=== PATIENT | male | born 1945 | race African-American/Black ===

== ENCOUNTER 2018-01-03 08:06 | Emergency (ER) | payer OTHER, MEDICARE, SELFPAY ==
[2018-01-03 08:15] VITALS: BP 142/83; PULSE 93; RESP 18; TEMP 36.7; O2SAT 96
--- NOTE | 2018-01-03 08:40 | ED_ITS ---
HPI - Back Pain/Injury General Chief Complaint: Back Pain/Injury Stated Complaint: low back soreness Time Seen by Provider: 01/03/18 08:10 Source: patient Mode of arrival: ambulatory Limitations: no limitations History of Present Illness HPI Narrative: 72M former smoker with history of hypertension presents to the emergency department the chief complaint of lower back pain in the absence of any significant injury. He denies any midline or bony pain nor any traumatic injury. He denies fever or chills. He denies any dysuria, frequency or urgency. He denies hematuria. He denies any numbness, tingling or weakness. He denies foot drop. He denies any trouble controlling bowel or bladder. His pain is worse with motion and improves with rest MD Complaint: back pain Onset (ago): day(s) Duration: intermittent Similar Symptoms Previously: Yes Location: lumbar spine and thoracic spine Severity: mild Quality: aching Radiation: none Relieving factors: none Exacerbating factors: movement Associated symptoms: denies other symptoms Related Data Home Medications Medication Instructions Recorded Confirmed atenolol Unknown PO QDAY #0 03/26/16 lisinopril Unknown PO QDAY #0 03/26/16 Previous Rx's Medication Instructions Recorded albuterol sulfate [Ventolin HFA] 2 puff INH Q4HP PRN #1 ea 03/27/16 doxycycline hyclate 100 mg PO BID #10 cap 03/27/16 fluticasone-salmeterol [Advair 1 puff INH BID #1 ea 03/27/16 Diskus] prednisone 40 mg [place] [facility] [place] tab 03/27/16 cyclobenzaprine 10 mg PO TID PRN #14 tab 01/03/18 ibuprofen 600 mg PO TID-QID PRN #20 tab 01/03/18 Allergies Allergy/AdvReac Type Severity Reaction Status Date / Time No Known Allergies Allergy Uncoded 01/03/18 08:43 Review of Systems Review of Systems All systems reviewed & are unremarkable except as noted in HPI and below Constitutional Denies chills, Denies fever(s), Denies lethargy and Denies weakness Eyes Denies change in vision, Denies eye discharge, Denies irritation and Denies loss of vision ENT Ears, Nose, Mouth, and Throat: Denies change in voice, Denies neck pain and Denies sore throat Cardiovascular Denies chest pain, Denies irregular heart rhythm, Denies lightheadedness, Denies palpitations, Denies dyspnea, Denies dyspnea on exertion and Denies orthopnea Respiratory Denies cough, Denies dyspnea, Denies dyspnea on exertion and Denies wheezing Gastrointestinal Gastrointestinal: Denies abdominal pain, Denies change in bowel habits, Denies diarrhea, Denies nausea and Denies vomiting Genitourinary Denies hematuria, Denies flank pain, Denies urinary incontinence and Denies urinary urgency Musculoskeletal Reports back pain and Denies neck pain Integumentary/Breasts Denies pruritus, Denies erythema, Denies rash and Denies wounds Neurologic Denies confusion, Denies loss of vision and Denies weakness Psychiatric Denies anxiety, Denies confusion, Denies depression, Denies homicidal ideation and Denies suicidal ideation Endocrine Denies palpitations Hematologic/Lymphatic Denies easy bruising Allergic/Immunologic Denies wheezing [facility] Social History Smoking Status: Former smoker Exam Narrative Exam Narrative: GEN: AOx3 and in mild distress EYES: Pupils are equal, round, and reactive to light and accommodation. Extraoccular muscles are intact bilaterally. There is no subconjunctival hemorrhage or exudate. CHEST: Lungs are clear to auscultation bilaterally and free of wheezes, rales, or rhonchi. Heart rate is regular rhythm, there are no murmurs, clicks, rubs, or gallops. There is no chest wall tenderness. ABD: Abdomen is soft and nontender. There is no guarding or rebound. Bowel sounds are normal in all 4 quadrants. There is no mass or organomegaly. EXT: Full painless ROM of all extremities with no loss of sensation or strength. SKIN: Warm, pink, and dry. No erythema or rash BACK: cell tender helper but free of any obvious external abnormalities. Patient exam notes decreased range of motion and muscle spasm, but no CVA tenderness, or vertebral point tenderness. There are no symptoms of cauda equina such as saddle anesthesia, and decreased reflexes, decreased sensation or strength. Initial Vital Signs Initial Vital Signs: Vital Signs Temperature 98.1 F 01/03/18 08:15 Pulse Rate 93 H 01/03/18 08:15 Respiratory Rate 18 01/03/18 08:15 Blood Pressure 142/83 H 10/13/18 08:15 Pulse Oximetry 96 10/13/18 08:15 Course Vital Signs - 8 hr 01/03/18 08:15 Temperature 98.1 F Pulse Rate 93 H Respiratory Rate 18 Blood Pressure 142/83 H Pulse Oximetry 96 MDM - Back Pain/Injury Differential Diagnosis Differential diagnosis: Likely lumbar radiculopathy, sciatica, strain of lumbar region, renal colic, pyelonephritis, thoracic back pain, AAA and discitis Lab Data Urine Dip Bedside Urine Glucose Negative Bedside Urine Bilirubin - Negative Bedside Urine Ketone - Negative Urine Specific [place] 1.030 Bedside Urine Occult Blood - Negative Bedside Urine pH 6.0 Bedside Urine Protein - Negative Bedside Urine Urobilinogen - Negative Bedside Urine Nitrite - Negative Bedside Urine Leukocytes - Negative Esterase Discharge Plan Departure Patient Disposition: Home Clinical Impression: Strain of lumbar region Instructions: DI for Low Back Pain, DI for Thoracic Back Pain Activity Restrictions/Additional Instructions: *You have been diagnosed with [ lumbar pain] *What to do: *Take medications as directed *Follow up with your primary care provider in 2-3 days, call for an appointment. Let them know you were seen in the Emergency Department and that we ask that you be seen in follow up *Return to ER if you should have any new, worsening or concerning symptoms Prescriptions: New cyclobenzaprine 10 mg tablet 10 mg PO TID PRN (Reason: muscle spasm) Qty: 14 RF: 0 ibuprofen 600 mg tablet 600 mg PO TID-QID PRN (Reason: pain) Qty: 20 RF: 0 No Action lisinopril 20 MG tablet Unknown PO QDAY Qty: 0 RF: 0 atenolol 25 MG tablet Unknown PO QDAY Qty: 0 RF: 0 fluticasone-salmeterol [Advair Diskus] 250 MCG/50 MCG blister with device 1 puff INH BID Qty: 1 RF: 0 doxycycline hyclate 100 MG capsule 100 mg PO BID Qty: 10 RF: 0 albuterol sulfate [Ventolin HFA] 90 MCG/PUFF HFA aerosol inhaler 2 puff INH Q4HP PRNQty: 1 RF: 0 prednisone 20 MG tablet 40 mg PO AMC Qty: 8 RF: 0
== END 2018-01-03 09:02 | disposition home or self-care (01) ==
PROVIDERS: Emergency Provider Emergency Medicine
DX: S39.012A Strain of muscle, fascia and tendon of lower back, initial encounter (principal)
CPT/HCPCS: 81003; 99282; 99283

== ENCOUNTER 2018-04-01 10:50 | Emergency (ER) | payer OTHER, SELFPAY ==
[2018-04-01 10:50] VITALS: BP 153/94; PULSE 86; RESP 20; TEMP 36.9; O2SAT 89
[2018-04-01 11:12] VITALS: PULSE 90; RESP 16; O2SAT 95
[2018-04-01] MEDS: ALBUTEROL/IPRATROPIUM 3 ML AMPUL INH (11:14)
--- NOTE | 2018-04-01 11:36 | DI.RAD.S_ITS ---
PROCEDURE: XR CHEST 2V INDICATIONS: SOB, hx COPD worse x 12 hours TECHNIQUE: 2 views of the chest were acquired. COMPARISON: [facility], , CHEST 2 VIEW, 03/25/2016, 21:07. FINDINGS: Surgical changes and devices: None. Lungs and pleura: Previously seen area of airspace disease within the right upper lobe has resolved. There are new linear areas of increased attenuation identified at the bilateral lung bases. No lobar consolidation, large effusion, or pneumothorax is evident. Mediastinum: Mediastinal contours are normal. Heart size is normal. There likely is aortic atherosclerosis. There is a small hiatal hernia. Bones and chest wall: No suspicious bony abnormalities. Soft tissues appear unremarkable. IMPRESSION: Mild bibasilar atelectasis. No definite pneumonia. Dictated by: Samuel Tijerina M.D. on 04/01/2018 at 11:12 Approved by: Samuel Tijerina M.D. on 04/01/2018 at 11:13
--- NOTE | 2018-04-01 11:42 | ED_ITS ---
HPI - SOB/Dyspnea General Chief Complaint: Shortness of Breath/Dyspnea Stated Complaint: SHORTNESS OF BREATH LAST NIGHT Time Seen by Provider: 04/01/18 11:13 Source: patient Mode of arrival: ambulatory Limitations: no limitations History of Present Illness This is a 72-year-old male who comes to the emergency department with complaint of shortness of breath. 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 It improved overnight slowly. Patient has been out of his long-acting albuterol inhaler for about for 5 days. He does not normally use a steroid inhaler. Patient states that when he finish work this morning he was feeling better but still felt a little bit short of breath. He states that he has not had any fevers, has any cold cough or congestion. He has any chest pain or pressure. No nausea, no vomiting, no diaphoresis. Patient does have swelling in his lower extremities which he states is chronic and has not seemed to worsen. He does take medication for blood pressure, states he used to take medication for dyslipidemia. He did have a cardiac catheterization around 2006 after traveling to [facility] and being evaluated. He states he was told his cardiac cath was negative. He is not sure if he has ever been told he has right bundle branch block on his EKG. Related Data Home Medications Medication Instructions Recorded Confirmed lisinopril 20 mg PO DAILY #0 03/26/16 04/01/18 Previous Rx's Medication Instructions Recorded albuterol sulfate [Ventolin HFA] 2 puff INH Q4HP PRN #1 ea 03/27/16 Allergies Allergy/AdvReac Type Severity Reaction Status Date / Time No Known Drug Allergies Allergy Verified 04/01/18 11:02 Review of Systems Review of Systems ROS Unobtainable: All systems reviewed & are unremarkable except as noted in HPI and below Constitutional Denies chills, Denies fever(s), Denies lethargy and Denies weakness Cardiovascular Denies chest pain, Denies diaphoresis, Denies rapid heart rate, Reports edema ( chronic, not worse), Denies irregular heart rhythm, Denies lightheadedness, Denies radiating jaw, neck or arm pain, Denies palpitations, Reports dyspnea and Denies orthopnea Respiratory Denies change in phlegm color, Denies chest congestion, Denies cough, Denies excessive phlegm production, Denies pain on inspiration and Reports dyspnea Gastrointestinal Gastrointestinal: Denies abdominal pain, Denies change in bowel habits, Denies diarrhea, Denies nausea and Denies vomiting Neurologic Denies weakness Endocrine Denies palpitations COUNTS INCLUDE 234 BEDS AT THE [facility] Social History Smoking Status: Former smoker Exam Narrative Exam Narrative: GENERAL: Alert and oriented x three, obese, well-appearing male in no acute distress. HEENT: Head normocephalic, atraumatic, EOMI, pupils reactive, face symmetric, moist mucous membranes NECK: Supple, full range of motion CARDIOVASCULAR: Regular rate and rhythm without murmurs, rubs or gallops. RESPIRATORY: Breath sounds equal bilaterally, no wheezes rales or rhonchi. Patient has no tachypnea. No accessory muscle use. Patient is able to talk for prolonged period of time without trouble with respirations. ABDOMEN: Soft, nontender. Normoactive bowel sounds all 4 quadrants. No guarding or rebound, rigidity, no mass : No CVA tenderness EXTREMITIES: Normal range of motion, no clubbing. bilateral lower extremity edema. Neurovascularly intact NEUROLOGICAL: Cranial nerves II through XII grossly intact. Moving all extremities. SKIN: Warm, dry, no petechiae, no rashes or lesions. Initial Vital Signs Initial Vital Signs: Vital Signs Temperature 98.4 F 04/01/18 10:50 Pulse Rate 86 04/01/18 10:50 Respiratory Rate 20 04/01/18 10:50 Blood Pressure 153/94 H 04/01/18 10:50 Pulse Oximetry 89 L 04/01/18 10:50 Course Orders Ordered: ED Orders 04/01/18 11:35 Consult to Respiratory Therapy Evaluate & Treat 04/01/18 11:36 XR chest 2V Stat 04/01/18 11:50 B Type Natriuretic Peptide Stat Complete Blood Count AUTO DIFF Stat 04/01/18 12:15 Basic Metabolic Panel Stat Magnesium Stat Troponin & CK Cardiac Panel Stat Discontinued Medications Albuterol/Ipratropium (Duoneb) 3 ml INH NOW ONE Stop: 04/01/18 11:13 Last Admin: 04/01/18 11:14 Dose: 3 ml Vital Signs - 8 hr 04/01/18 12:30 04/01/18 13:00 04/01/18 13:30 Pulse Rate 87 84 86 Respiratory Rate 19 17 22 Blood Pressure Blood Pressure [Right Arm] 152/79 H 113/99 H 134/77 Pulse Oximetry 95 96 96 04/01/18 14:05 Pulse Rate 80 Respiratory Rate 19 Blood Pressure 134/77 Blood Pressure [Right Arm] Pulse Oximetry 97 MDM - SOB/Dyspnea Differential Diagnosis Likely acute exacerbation of chronic obstructive airways disease, congestive heart failure, community acquired pneumonia, asthma with exacerbation and pulmonary embolism Lab Data Attestation: I reviewed the patient's lab results. Result diagrams: 04/01/18 11:50 04/01/18 12:15 Lab Results 04/01/18 04/01/18 Range/Units 11:50 12:15 WBC 5.9 (4.5-11.0) X10^3/uL RBC 4.37 L (4.5-5.9) X10^6/uL Hgb 13.0 L (13.5-17.5) g/dL Hct 40.8 L (41-53) % MCV 93.4 (80-100) fL MCH 29.6 (26-34) PG MCHC 31.7 (30-36) % RDW 14.4 (11.6-14.8) % Plt Count 203 (150-400) X10^3/uL Neut % (Auto) 62.1 (50-75) % Lymph % (Auto) 21.1 L (25-40) % [place] % (Auto) 11.6 (3-14) % Eos % (Auto) 3.9 (2-4) % Baso % (Auto) 1.3 (0-2) % Neut # (Auto) 3700 (3866-7153) /uL Sodium 142 (137-145) mmol/L Potassium 4.5 (3.4-5.1) mmol/L Chloride 101 (98-107) mmol/L Carbon Dioxide 33 H (22-32) mmol/L BUN 17 (9-20) mg/dL Creatinine 0.80 (0.66-1.25) mg/dL Estimated GFR > 60.0 (>60) mL/min BUN/Creatinine Ratio 21.3 (6-22) Glucose 110 (80-110) mg/dL Calcium 9.2 (8.4-10.2) mg/dL Magnesium 2.3 (1.6-2.3) mg/dL Total Creatine Kinase 130 (55-170) U/L CK-MB (CK-2) 2.14 (<2.37) ng/mL CK-MB (CK-2) Rel Index 1.6 (1.5-5.0) % Troponin I < 0.012 (0.01-0.034) ng/mL B-Natriuretic Peptide < 100 (<100) Urine Dip Bedside Urine Glucose Negative Bedside Urine Bilirubin - Negative Bedside Urine Ketone - Negative Urine Specific [place] 1.015 Bedside Urine Occult Blood - Negative Bedside Urine pH 7.0 Bedside Urine Protein - Negative Bedside Urine Urobilinogen - Negative Bedside Urine Nitrite - Negative Bedside Urine Leukocytes - Negative Esterase ECG Data Attestation: I personally reviewed and interpreted this ECG as follows: Prior ECG tracings: not available for review Interpretation: Sinus rhythm with ventricular rate of 90, MD of 157, QRS of 141 and QTC of 455. Patient has a right bundle branch block. He does not have any prior EKGs for evaluation. MDM Narrative Medical decision making narrative: Discussed with patient he suspects that this is likely just related to his breathing. He feels better after a DuoNeb. We did discuss we do not have a good reason for his exacerbation other than he has been off his long-acting albuterol. Discussed possibly evaluating for any cardiac causes and patient is open to this and plane to do blood work as well as chest x-ray. Patient did find his long-acting albuterol inhaler yesterday. Patient's lab work shows no major changes. Has a right bundle branch on his EKG but no priors for comparison. Chest x-ray does not show any pneumonia or other clear causes for his shortness of breath. Patient improved after 1 breathing treatment. He has had low sats when he falls asleep in the bed. When I asked he has been told that he should get a sleep study and he has been told this before Um when he was evaluated at another emergency department. We discussed that getting a sleep study for KORTNEY would likely be quite helpful, making him feel more well rested if that was the appropriate treatment as well as decreasing his risk of stroke, cardiac disease and a multitude of issues. Patient is open to this he will follow up with his primary care. We discussed he feels comfortable returning home at this time. He has had 12 hr since his onset of symptoms so do not feel that he needs repeat or serial enzymes at this time. He is able to ambulate throughout the department without any major issue. He has not been tachycardia or hypoxic while awake or during walking. Discharge Plan Departure Patient Disposition: Home Clinical Impression: Dyspnea Discharge Date/Time: 04/01/18 14:07 Interventions: ED Discharge Assessment Last Done: 04/01/18 14:05 Instructions: DI for Shortness of Breath Activity Restrictions/Additional Instructions: Follow up with primary care in the next several days for follow up. Discuss with your physician about getting a sleep study. Your oxygen consistently drops when you are asleep, I suspect that you have sleep apnea and would benefit from a evaluation and treatment. Continue home medications as prescribed. Return for fevers greater than 100.4F, new shortness of breath, chest pain or pressure, vomiting, passing out, worsening swelling of your extremities or other new or concerning symptoms. Prescriptions: No Action lisinopril 20 MG tablet 20 mg PO DAILY Qty: 0 RF: 0 albuterol sulfate [Ventolin HFA] 90 MCG/PUFF HFA aerosol inhaler 2 puff INH Q4HP PRNQty: 1 RF: 0
[2018-04-01 11:56] LABS: Add Manual Diff / Slide Review NO; Basophils Percent Auto 1.3 % (0-2); Eosinophils Percent Auto 3.9 % (2-4); Hematocrit 40.8 % (41-53); Lymphocytes Percent Auto 21.1 % (25-40); Mean Corpuscular HGB Conc 31.7 % (30-36); Mean Corpuscular Hemoglobin 29.6 PG (26-34); Mean Corpuscular Volume 93.4 fL (80-100); Monocytes Percent Auto 11.6 % (3-14); Neutrophils Absolute Auto 3700 /uL (1500-7000); Neutrophils Percent Auto 62.1 % (50-75); Platelet Count 203 X10^3/uL (150-400); Red Blood Cell Count 4.37 X10^6/uL (4.5-5.9); Red Cell Distribution Width 14.4 % (11.6-14.8); White Blood Cell Count 5.9 X10^3/uL (4.5-11.0)
[2018-04-01 12:20] LABS: B Type Natriuretic Peptide < 100 (<100)
[2018-04-01 12:30] VITALS: BP 152/79; PULSE 87; RESP 19; O2SAT 95
[2018-04-01 12:31] LABS: BUN Creatinine Ratio 21.3 (6-22); Blood Urea Nitrogen 17 mg/dL (9-20); Calcium 9.2 mg/dL (8.4-10.2); Carbon Dioxide 33 mmol/L (22-32); Chloride 101 mmol/L (98-107); Creatine Kinase 130 U/L (55-170); Estimated Glomerular Filt Rate > 60.0 mL/min (>60); Glucose 110 mg/dL (80-110); HEMOLYSIS < 15 (0-50); Magnesium 2.3 mg/dL (1.6-2.3); Potassium 4.5 mmol/L (3.4-5.1); Sodium 142 mmol/L (137-145)
[2018-04-01 12:45] LABS: Troponin I < 0.012 ng/mL (0.01-0.034)
[2018-04-01 12:46] LABS: CKMB % Relative Index 1.6 % (1.5-5.0); Creatine Kinase MB 2.14 ng/mL (<2.37)
[2018-04-01 13:00] VITALS: BP 113/99; PULSE 84; RESP 17; O2SAT 96
[2018-04-01 13:30] VITALS: BP 134/77; PULSE 86; RESP 22; O2SAT 96
[2018-04-01 14:05] VITALS: BP 134/77; PULSE 80; RESP 19; O2SAT 97
== END 2018-04-01 14:07 | disposition home or self-care (01) ==
PROVIDERS: Emergency Provider Emergency Medicine
DX: R06.00 Dyspnea, unspecified (principal)
CPT/HCPCS: 36415; 36591; 71046; 80048; 81003; 82550; 82553; 83735; 83880; 84484; 85025; 93005; 94640; 99283; 99285

== ENCOUNTER → 2018-04-30 11:39 | Outpatient (CLI) | payer OTHER, SELFPAY ==
[2018-04-30 12:02] LABS: Bacteria Urine None Seen; RBC Urine None Seen (0-5/HPF)
[2018-04-30 12:08] LABS: Appearance Urine UA CLEAR; Bilirubin Urine UA NEGATIVE (NEGATIVE); Color Urine UA YELLOW; Glucose Urine UA NEGATIVE (Negative); Ketones Urine UA NEGATIVE (NEGATIVE); Leukocyte Esterase Urine UA NEGATIVE (NEGATIVE); Nitrite Urine UA NEGATIVE (Negative); Occult Blood Urine UA NEGATIVE (Negative); Protein Urine UA TRACE (Negative); Specific Gravity Urine UA 1.025 (1.000-1.035); Urobilinogen Urine UA 0.2 E.U./dL (0.2); pH Urine UA 5.5 (4.5-8.0)
[2018-04-30 12:16] LABS: WBC Urine 5-10/HPF (0-5/HPF)
[2018-04-30 12:17] LABS: Culture Indicated Urine Specimen Cultured
== END ==
PROVIDERS: Visit Provider Urology
DX: R06.02 Shortness of breath (principal)
CPT/HCPCS: 81001; 87086

== ENCOUNTER 2018-05-07 01:59 | Emergency (ER) | payer OTHER, SELFPAY ==
[2018-05-07 02:05] VITALS: BP 151/81; PULSE 101; RESP 20; TEMP 36.2; O2SAT 91; BMI 39.7
--- NOTE | 2018-05-07 02:24 | DI.RAD.S_ITS ---
PROCEDURE: XR CHEST 1V INDICATIONS: Shortness of breath TECHNIQUE: One view of the chest was acquired. COMPARISON: [facility], CR, XR CHEST 2V, 04/01/2018, 11:52. FINDINGS: Surgical changes and devices: None. Lungs and pleura: No acute consolidation. Scattered subsegmental atelectasis and/or scarring. No pleural effusions or pneumothorax. Mediastinum: Mediastinal contours appear normal. Heart size is normal. Bones and chest wall: No suspicious bony lesions. Overlying soft tissues appear unremarkable. IMPRESSION: No acute disease Dictated by: Olu Rodriguez M.D. on 05/07/2018 at 8:12 Approved by: Olu Rodriguez M.D. on 05/07/2018 at 8:13
[2018-05-07 02:26] VITALS: PULSE 98; RESP 20; O2SAT 90
[2018-05-07] MEDS: ALBUTEROL/IPRATROPIUM 3 ML AMPUL INH ×2 (02:26→03:28)
[2018-05-07 02:53] LABS: Add Manual Diff / Slide Review NO; Basophils Absolute Auto 100 /uL (0-100); Basophils Percent Auto 1.1 % (0-2); Eosinophils Absolute Auto 200 /uL (0-450); Eosinophils Percent Auto 3.5 % (2-4); Hematocrit 42.4 % (41-53); Hemoglobin 13.6 g/dL (13.5-17.5); Lymphocytes Absolute Auto 800 /uL (1100-4500); Lymphocytes Percent Auto 13.4 % (25-40); Mean Corpuscular HGB Conc 32.1 % (30-36); Mean Corpuscular Hemoglobin 29.6 PG (26-34); Mean Corpuscular Volume 92.2 fL (80-100); Monocytes Absolute Auto 500 /uL (0-900); Monocytes Percent Auto 8.7 % (3-14); Neutrophils Absolute Auto 4100 /uL (1500-7000); Neutrophils Percent Auto 73.3 % (50-75); Platelet Count 198 X10^3/uL (150-400); White Blood Cell Count 5.6 X10^3/uL (4.5-11.0)
[2018-05-07 03:00] LABS: Alanine Aminotransferase 44 IU/L (21-72); Albumin Globulin Ratio 1.2 (1.0-2.8); Alkaline Phosphatase 68 U/L (38-126); Aspartate Aminotransferase 28 IU/L (17-59); BUN Creatinine Ratio 17.1 (6-22); Bilirubin Total 0.4 mg/dL (0.2-1.3); Blood Urea Nitrogen 12 mg/dL (9-20); Calcium 8.8 mg/dL (8.4-10.2); Carbon Dioxide 30 mmol/L (22-32); Chloride 100 mmol/L (98-107); Estimated Glomerular Filt Rate > 60.0 mL/min (>60); Globulin 3.4 g/dL (1.7-4.1); Glucose 184 mg/dL (80-110); HEMOLYSIS 19 (0-50); Potassium 3.9 mmol/L (3.4-5.1); Sodium 140 mmol/L (137-145); Total Protein 7.4 g/dL (6.3-8.2)
[2018-05-07 03:01] LABS: Creatine Kinase 209 U/L (55-170); Magnesium 2.2 mg/dL (1.6-2.3)
[2018-05-07 03:12] LABS: Troponin I < 0.012 ng/mL (0.01-0.034)
[2018-05-07 03:14] LABS: B Type Natriuretic Peptide < 100 (<100)
[2018-05-07 03:16] LABS: CKMB % Relative Index 1.4 % (1.5-5.0); Creatine Kinase MB 2.95 ng/mL (<2.37)
--- NOTE | 2018-05-07 03:22 | DI.CT.S_ITS ---
PROCEDURE: CT ANGIO CHEST PE PROTOCOL INDICATIONS: hypoxia, recent trip TECHNIQUE: After the administration of intravenous contrast, 2 mm thick sections acquired from the pulmonary apices to the posterior costophrenic angles. 3-dimensional maximum intensity projection (MIP) coronal and sagittal reformats were then acquired through the thorax. For radiation dose reduction, the following was used: automated exposure control, adjustment of mA and/or kV according to patient size. COMPARISON: None. FINDINGS: Image quality: Suboptimal opacification of peripheral pulmonary arteries. Small, peripheral pulmonary emboli cannot be excluded. Pulmonary arteries: Pulmonary arteries are normal in size, and demonstrate no intraluminal filling defects to suggest central pulmonary embolism. Lungs and pleura: Lungs are clear. No pleural effusions or pneumothorax. Central and peripheral airways are patent. There is patchy bibasal or atelectasis. There is mild bilateral basilar bronchial wall thickening. There is a 6 mm pulmonary nodule in the left upper lobe and a 6 mm pulmonary nodule in the right middle lobe. Both of these nodules are noncalcified. Mediastinum: Heart size is normal, without pericardial effusion. No mediastinal or hilar adenopathy. Thoracic aorta is normal in caliber and enhancement. Esophagus is normal in caliber, without hiatal hernia. Bones and chest wall: No suspicious bony lesions. Ribs and thoracic spine appear intact throughout. Thyroid gland is unremarkable. No axillary or supraclavicular adenopathy. Abdomen: Visualized upper abdominal solid organs appear normal in the early arterial phase of enhancement. Right renal cysts are noted. IMPRESSION: 1. Suboptimal opacification of peripheral pulmonary arteries. No pulmonary emboli are identified. Small peripheral pulmonary emboli are not excluded. 2. Bilateral mild bronchial wall thickening, consistent with bronchitis. PULMONARY NODULE MANAGEMENT RECOMMENDATIONS: Pulmonary nodules are common incidental finding on CT. If there is prior imaging such as a chest radiograph or CT available at another facility, should be compared to assess for stability. Solid pulmonary noncalcified nodules 6-8 mm: A CT scan of the chest in 6-12 months is recommended. Reference: Lamar Staton, et al., radiology 2017 May 16, PMID: [id number] Comment: A preliminary report with the above findings was provided by [employer] at the time of study completion. Dictated by: Carlos Richter M.D. on 05/07/2018 at 8:48 Approved by: Carlos Richter M.D. on 05/07/2018 at 9:11
[2018-05-07] MEDS: methylPREDNISolone 125 MG/2 ML VIAL IV (03:23)
[2018-05-07 03:28] VITALS: PULSE 86; RESP 18; O2SAT 1
--- NOTE | 2018-05-07 03:55 | ED.SOB ---
HPI - SOB/Dyspnea General Chief Complaint: Shortness of Breath/Dyspnea Stated Complaint: shortness of breath Time Seen by Provider: 05/07/18 02:22 Source: patient Mode of arrival: ambulatory Limitations: no limitations History of Present Illness patient is a 72-year-old male who presents with shortness of breath Ongoing for last 2 days. He says he does have inhalers he just did not have them with him. He has no known history of COPD. He says he does have more shortness of breath with exertion such as going up the stairs. However mild walking and rest denies significant shortness of breath. His he has not had any fever productive cough chest pain or heart palpitations. He was here March 2018 for his similar symptoms. Given DuoNeb and discharged home with workup. The patient states that he actually was in [place] 2 weeks ago, no known history of blood clots. MD Complaint: shortness of breath Onset (ago): day(s) (2) Context: occurred during exertion and recent travel Severity: moderate Consistency/Duration: progressively worsening Relieving factors: rest and bronchodilators Exacerbating factors: movement Known history of: asthma Related Data Home Medications Medication Instructions Recorded Confirmed lisinopril 20 mg PO DAILY #0 03/26/16 04/01/18 Previous Rx's Medication Instructions Recorded albuterol sulfate [Ventolin HFA] 2 puff INH Q4HP PRN #1 ea 03/27/16 prednisone 50 mg PO DAILY #5 tab 05/07/18 Allergies Allergy/AdvReac Type Severity Reaction Status Date / Time No Known Drug Allergies Allergy Verified 04/01/18 11:02 Review of Systems Review of Systems GENERAL: Denies chills, fatigue, malaise, fever, sweats, travel HEENT: Denies sinus pain, ear pain, sore throat, difficulty swallowing, neck pain RESPIRATORY:see HPI CARDIOVASCULAR: Denies chest pain, palpitations, orthopnea, edema GASTROINTESTINAL: Denies nausea, vomiting, abdominal pain, diarrhea, constipation, melena. : Denies dysuria, frequency, incontinence, hematuria, urinary retention, flank pain. MUSCULOSKELETAL: Denies weakness, joint pain, or bony pain SKIN: No rash, no erythema, no pruritus NEUROLOGIC: Denies weakness, dizziness, headache, numbness, change in speech, confusion PSYCHIATRIC: No concerning psychosocial issues. 12 point review of systems is negative except for those stated above and HPI [facility], [facility] Medical History Asthma (Acute) Hypertension (Acute) Social History Smoking Status: Former smoker Social History Smoking Status: Former smoker Exam Initial Vital Signs Initial Vital Signs: Vital Signs Temperature 97.2 F L 05/07/18 02:05 Pulse Rate 101 H 05/07/18 02:05 Respiratory Rate 20 05/07/18 02:05 Blood Pressure 151/81 H 05/07/18 02:05 Pulse Oximetry 91 05/07/18 02:05 GENERAL: alert pleasant male no acute respiratory distress. overweight HEENT: Head atraumatic,EOMI, pupils reactive, face symmetric, neck is supple CARDIOVASCULAR: Regular rate and rhythm without murmurs, rubs or gallops. RESPIRATORY: decreased breath sounds bilaterally no wheezes rales or rhonchi no tachypnea no conversational dyspnea speaks in full sentences ABDOMEN: Soft, nontender. Normoactive bowel sounds all 4 quadrants. No guarding or rebound. EXTREMITIES: Normal range of motion, no clubbing or edema. Neurovascularly intact. bilateral lower extremity swelling. Wearing compression socks no pitting edema no erythema NEUROLOGICAL: Alert and oriented x4.Normal gait and speech. SKIN: Warm, dry, no laceration, no petechiae, no rashes or lesions. Course Orders Ordered: ED Orders 05/07/18 02:23 Consult to Respiratory Therapy Evaluate & Treat EKG-12 Lead Stat 05/07/18 02:24 XR chest 1V Stat 05/07/18 02:27 B Type Natriuretic Peptide Stat Complete Blood Count AUTO DIFF Stat Comprehensive Metabolic Panel Stat Magnesium Stat Troponin & CK Cardiac Panel Stat 05/07/18 03:22 CT angio chest PE protocol Stat Discontinued Medications Albuterol (Ventolin) 2.5 mg INH NOW ONE Stop: 05/07/18 03:22 Last Admin: 05/07/18 05:02 Dose: Not Given Albuterol/Ipratropium (Duoneb) 3 ml INH NOW ONE Stop: 05/07/18 02:24 Last Admin: 05/07/18 02:26 Dose: 3 ml Albuterol/Ipratropium (Duoneb) 3 ml INH NOW ONE Stop: 05/07/18 03:28 Last Admin: 05/07/18 03:28 Dose: 3 ml Methylprednisolone (Solu-Medrol 125 Mg Vial) 125 mg IV NOW ONE Stop: 05/07/18 03:22 Last Admin: 05/07/18 03:23 Dose: 125 mg Vital Signs - 8 hr 05/07/18 02:05 05/07/18 02:26 05/07/18 03:28 Temperature 97.2 F L Pulse Rate 101 H 98 H 86 Respiratory Rate 20 20 18 Blood Pressure 151/81 H Blood Pressure [Right Arm] Pulse Oximetry 91 90 L 1 L 05/07/18 04:30 05/07/18 05:00 Temperature Pulse Rate 90 90 Respiratory Rate 18 17 Blood Pressure Blood Pressure [Right Arm] 145/62 H 135/71 Pulse Oximetry 90 L 96 MDM - SOB/Dyspnea Lab Data Attestation: I reviewed the patient's lab results. Result diagrams: 05/07/18 02:27 05/07/18 02:27 Lab Results 05/07/18 05/07/18 05/07/18 Range/Units 02:27 02:27 02:27 WBC 5.6 (4.5-11.0) X10^3/uL RBC 4.60 (4.5-5.9) X10^6/uL Hgb 13.6 (13.5-17.5) g/dL Hct 42.4 (41-53) % MCV 92.2 (80-100) fL MCH 29.6 (26-34) PG MCHC 32.1 (30-36) % RDW 14.0 (11.6-14.8) % Plt Count 198 (150-400) X10^3/uL Neut % (Auto) 73.3 (50-75) % Lymph % (Auto) 13.4 L (25-40) % [place] % (Auto) 8.7 (3-14) % Eos % (Auto) 3.5 (2-4) % Baso % (Auto) 1.1 (0-2) % Neut # (Auto) 4100 (7099-6608) /uL Lymph # (Auto) 800 L (4423-7573) /uL [place] # (Auto) 500 (0-900) /uL Eos # (Auto) 200 (0-450) /uL Baso # (Auto) 100 (0-100) /uL Sodium 140 (137-145) mmol/L Potassium 3.9 (3.4-5.1) mmol/L Chloride 100 (98-107) mmol/L Carbon Dioxide 30 (22-32) mmol/L BUN 12 (9-20) mg/dL Creatinine 0.70 (0.66-1.25) mg/dL Estimated GFR > 60.0 (>60) mL/min BUN/Creatinine Ratio 17.1 (6-22) Glucose 184 H (80-110) mg/dL Calcium 8.8 (8.4-10.2) mg/dL Magnesium 2.2 (1.6-2.3) mg/dL Total Bilirubin 0.4 (0.2-1.3) mg/dL AST 28 (17-59) IU/L ALT 44 (21-72) IU/L Alkaline Phosphatase 68 (38-126) U/L Total Creatine Kinase 209 H (55-170) U/L CK-MB (CK-2) 2.95 H (<2.37) ng/mL CK-MB (CK-2) Rel Index 1.4 L (1.5-5.0) % Troponin I < 0.012 (0.01-0.034) ng/mL B-Natriuretic Peptide < 100 (<100) Total Protein 7.4 (6.3-8.2) g/dL Albumin 4.0 (3.5-5.0) g/dL Globulin 3.4 (1.7-4.1) g/dL Albumin/Globulin Ratio 1.2 (1.0-2.8) Imaging Data Chest x-ray: Attestation: I personally reviewed and interpreted this imaging study as follows: My impression: bilateral basilar atelectasis similar to prior no acute consolidation CT scan - chest: 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 A segmental or subsegmental embolus cannot be ruled out. Bilateral lung nodules measuring up to 5 mm in diameter. Depending on the availability of prior studies for comparison this may require follow-up. Mild bilateral bronchial wall thickening consistent with bronchitis. Probable right renal cyst nonemergent ultrasound confirmation recommended. ECG Data Attestation: I personally reviewed and interpreted this ECG as follows: Prior ECG tracings: available for review Interpretation: sinus rhythm rate 95 right bundle-branch block noted similar to prior EKGs no acute ST changes or T-wave inversions MDM Narrative Medical decision making narrative: patient's breathing did improve his after DuoNeb. However he is noted to have an O2 level of 80 to 90% at rest. He also falls asleep his O2 drops he is requiring about 1 L of oxygen. His will do CT to rule out PE with recent travel. No sign of infection at this time. The patient does not appear in any sort of respiratory distress with exertion or at rest. His a CT for PE with hypoxia and recent travel. CT is negative. The patient states that he has been accused of not taking deep breaths and he knows he needs CPAP machine that he just has not gotten around to it. Ambulation trial O2 is 89% but patient has no dyspnea. He does have an albuterol inhaler. No sign of pneumonia or infection or PE. patient's oxygen level quickly comes up to 90% with rest. At this time patient needs close follow-up with his PCP at the [place]. He understands this. He says his oxygen levels have been low, a seems to be where he lives. He. really seems quite comfortable and nontoxic Patient is put on prednisone to help with reactive airway. He did improve with bronchodilators. Discharge Plan Departure Patient Disposition: Home Clinical Impression: Acute exacerbation of chronic obstructive airways disease Discharge Date/Time: 05/07/18 05:30 Interventions: ED Discharge Assessment Last Done: 05/07/18 05:30 Instructions: DI for Reactive Airway Disease-Adult Activity Restrictions/Additional Instructions: *You have been diagnosed with Reactive airway exacerbation *What to do: at this time no antibiotics are needed blood work is reassuring no pneumonia, no blood clot in lungs *Continue to take medications as directed - albuterol inhaler 1-2 puffs every 4 hr if needed for shortness of breath - prednisone 50 mg once a day start tomorrow for 5 days *Follow up with your primary care provider in 2-3 days *Return to ER if you should have increasing shortness of breath, fever, chest pain or any new, worsening or concerning symptoms Prescriptions: New prednisone 50 mg tablet 50 mg PO DAILY Qty: 5 RF: 0 No Action lisinopril 20 MG tablet 20 mg PO DAILY Qty: 0 RF: 0 albuterol sulfate [Ventolin HFA] 90 MCG/PUFF HFA aerosol inhaler 2 puff INH Q4HP PRNQty: 1 RF: 0
[2018-05-07 04:30] VITALS: BP 145/62; PULSE 90; RESP 18; O2SAT 90
[2018-05-07 05:00] VITALS: BP 135/71; PULSE 90; RESP 17; O2SAT 96
== END 2018-05-07 05:30 | disposition home or self-care (01) ==
PROVIDERS: Emergency Provider Emergency Medicine
DX: J44.1 Chronic obstructive pulmonary disease with (acute) exacerbation (principal)
CPT/HCPCS: 36591; 71045; 71275; 80053; 82550; 82553; 83735; 83880; 84484; 85025; 93005; 94640; 96374; 99283; 99284; J2930; Q9967

== ENCOUNTER 2018-06-16 15:16 | Emergency (ER) | payer OTHER, SELFPAY ==
[2018-06-16 15:18] VITALS: BP 172/89; PULSE 107; RESP 21; TEMP 36.6; O2SAT 105
--- NOTE | 2018-06-16 15:36 | DI.RAD.S_ITS ---
PROCEDURE: XR CHEST 2V INDICATIONS: short of breath TECHNIQUE: 2 views of the chest were acquired. COMPARISON: [facility], CT, CT ANGIO CHEST PE PROTOCOL, 05/07/2018, 3:28. [facility], CR, XR CHEST 1V, 05/07/2018, 2:28. FINDINGS: Surgical changes and devices: None. Lungs and pleura: Interstitial prominence within the bilateral lung bases is slightly more prominent on the current study best appreciated at the left lung base. No large effusion or pneumothorax is evident. Mediastinum: Mediastinal contours are normal. Heart size is normal. Bones and chest wall: No suspicious bony abnormalities. Soft tissues appear unremarkable. IMPRESSION: Linear infrahilar lung markings most likely represent scarring versus atelectasis. Superimposed atypical pneumonia cannot be completely excluded. Please correlate clinically. Dictated by: Samuel Tijerina M.D. on 06/16/2018 at 14:55 Approved by: Samuel Tijerina M.D. on 06/16/2018 at 14:57
--- NOTE | 2018-06-16 16:33 | ED_ITS ---
HPI - SOB/Dyspnea General Chief Complaint: Shortness of Breath/Dyspnea Stated Complaint: SHORTNESS OF BREATH Time Seen by Provider: 06/16/18 16:08 Source: patient Mode of arrival: ambulatory Limitations: no limitations History of Present Illness This is a 72-year-old male comes to the emergency department with complaint shortness of breath. Patient states that he started noticing some shortness of breath yesterday. Has been slowly increasing. He states that it sort of waxes and wanes in intensity. Nothing seems to be particularly associated although sometimes more with exertion. He does have inhalers and breathing treatments at home. He has not used any recently. Has not any fevers. He has had a little bit of cough which has been nonproductive and felt like his throat was a little scratchy. He feels tight in his chest. He denies any pressure or chest pain. He has chronically has swelling in his lower extremities and states that it is a little better than normal. Patient is not having abdominal pain. No nausea no vomiting no diarrhea or constipation. No new urinary issues. Patient been seen several times before for similar symptoms here in the ER and had workup for PE as well. Related Data Home Medications Medication Instructions Recorded Confirmed lisinopril 20 mg PO DAILY #0 03/26/16 06/16/18 albuterol sulfate [Ventolin HFA] 2 puff INH Q4HP PRN 06/16/18 06/16/18 furosemide 20 mg PO QAM 06/16/18 06/16/18 Previous Rx's Medication Instructions Recorded albuterol sulfate 2 puff INHALATION Q4-6H PRN #8 gram 06/16/18 azithromycin See Rx Instructions .ROUTE 06/16/18 .COMPLEX #4 tab prednisone 50 mg PO DAILY #5 tab 06/16/18 Allergies Allergy/AdvReac Type Severity Reaction Status Date / Time No Known Drug Allergies Allergy Verified 04/01/18 11:02 Review of Systems Review of Systems ROS Unobtainable: All systems reviewed & are unremarkable except as noted in HPI and below Constitutional Denies chills, Denies fever(s), Denies lethargy, Denies night sweats and Denies weakness ENT Ears, Nose, Mouth, and Throat: Reports nasal congestion, Denies sinus pain and Reports sore throat Cardiovascular Denies chest pain, Denies chest pain at rest, Denies chest pain with activity, Denies diaphoresis, Denies syncope, Denies edema, Denies irregular heart rhythm, Denies lightheadedness, Denies radiating jaw, neck or arm pain, Denies palpitations, Reports dyspnea, Reports dyspnea on exertion and Denies orthopnea Respiratory Reports chest congestion, Reports cough, Denies hemoptysis, Denies excessive phlegm production, Reports dyspnea, Reports dyspnea on exertion and Reports w heezing Gastrointestinal Gastrointestinal: Denies abdominal pain, Denies change in bowel habits, Denies diarrhea, Denies nausea and Denies vomiting Genitourinary Denies hematuria, Denies dysuria and Denies urinary urgency Neurologic Denies syncope and Denies weakness Endocrine Denies palpitations Allergic/Immunologic Reports [facility]ezing [facility] Medical History KORTNEY (obstructive sleep apnea) (Chronic) Asthma (Chronic) Hypertension (Chronic) Social History Smoking Status: Former smoker Social History Smoking Status: Former smoker Exam Narrative Exam Narrative: GEN: Obese, well-appearing male, alert and oriented x 3, patient appears to be in no acute distress. HEENT: Atraumatic, pupils are equal round reactive to light, extraocular movements are intact, nares are clear, throat is clear without any exudates, erythema, tonsillar enlargement or uvular deviation HEART: Regular rate and rhythm without murmur, clicks, rubs. Pedal edema bilaterally. With 2+ edema lower extremities. LUNGS:Lungs decreased on auscultation although breath sounds noted bilaterally, mild bilateral wheezes, no rales, crackles, chest moves symmetrically, no tachypnea, no accessory muscle use. ABD:bowel sounds normal, soft, non-tender, no guarding, rebound, rigidity, no masses noted, no hepatosplenomegaly MSCL: Non-tender, no muscle atrophy, muscles strength 5/5 upper and lower extremities, full range of motion, normal gait NEURO:CN 2-12 intact, sensation normal Initial Vital Signs Initial Vital Signs: Vital Signs Temperature 97.9 F 06/16/18 15:18 Pulse Rate 107 H 06/16/18 15:18 Respiratory Rate 21 06/16/18 15:18 Blood Pressure 172/89 H 06/16/18 15:18 Pulse Oximetry 105 H 06/16/18 15:18 Course Orders Ordered: ED Orders 06/16/18 15:25 EKG-12 Lead Stat 06/16/18 15:36 XR chest 2V Stat 06/16/18 16:32 Consult to Respiratory Therapy Evaluate & Treat 06/16/18 17:10 B Type Natriuretic Peptide Stat Basic Metabolic Panel Stat Complete Blood Count AUTO DIFF Stat Influenza A and B by PCR Rapid Stat Troponin & CK Cardiac Panel Stat Discontinued Medications Albuterol (Ventolin) 5 mg INH NOW ONE Stop: 06/16/18 18:48 Last Admin: 06/16/18 18:48 Dose: 5 mg Albuterol/Ipratropium (Duoneb) 3 ml INH Q1H PRN PRN Reason: Shortness Of Breath Last Admin: 06/16/18 18:03 Dose: 3 ml Azithromycin (Zithromax) 500 mg PO NOW ONE Stop: 06/16/18 19:04 Last Admin: 06/16/18 19:15 Dose: 500 mg Methylprednisolone (Solu-Medrol 125 Mg Vial) 125 mg IV NOW ONE Stop: 06/16/18 16:31 Last Admin: 06/16/18 17:07 Dose: 125 mg Vital Signs - 8 hr 06/16/18 15:18 06/16/18 17:17 06/16/18 18:00 Temperature 97.9 F 97.4 F L Pulse Rate 107 H 98 H 89 Respiratory Rate 21 17 18 Blood Pressure 172/89 H Blood Pressure [Left Arm] 136/72 136/72 Pulse Oximetry 105 H 93 94 06/16/18 18:03 06/16/18 18:49 06/16/18 19:30 Temperature Pulse Rate 86 97 H 97 H Respiratory Rate 17 18 21 Blood Pressure 132/91 H Blood Pressure [Left Arm] Pulse Oximetry 90 L 90 L 90 L MDM - SOB/Dyspnea Lab Data Attestation: I reviewed the patient's lab results. Result diagrams: 06/16/18 17:10 06/16/18 17:10 Lab Results 06/16/18 06/16/18 06/16/18 Range/Units 17:10 17:10 17:10 WBC 7.1 (4.5-11.0) X10^3/uL RBC 5.08 (4.5-5.9) X10^6/uL Hgb 14.4 (13.5-17.5) g/dL Hct 45.3 (41-53) % MCV 89.2 (80-100) fL MCH 28.4 (26-34) PG MCHC 31.8 (30-36) % RDW 13.7 (11.6-14.8) % Plt Count 179 (150-400) X10^3/uL Neut % (Auto) 76.1 H (50-75) % Lymph % (Auto) 12.7 L (25-40) % [place] % (Auto) 8.5 (3-14) % Eos % (Auto) 2.1 (2-4) % Baso % (Auto) 0.6 (0-2) % Neut # (Auto) 5400 (3153-3901) /uL Lymph # (Auto) 900 L (4444-2220) /uL [place] # (Auto) 600 (0-900) /uL Eos # (Auto) 100 (0-450) /uL Baso # (Auto) 0 (0-100) /uL Sodium 137 (137-145) mmol/L Potassium 3.7 (3.4-5.1) mmol/L Chloride 96 L (98-107) mmol/L Carbon Dioxide 32 (22-32) mmol/L BUN 16 (9-20) mg/dL Creatinine 0.70 (0.66-1.25) mg/dL Estimated GFR > 60.0 (>60) mL/min BUN/Creatinine Ratio 22.9 H (6-22) Glucose 146 H (80-110) mg/dL Calcium 9.3 (8.4-10.2) mg/dL Total Creatine Kinase 151 (55-170) U/L CK-MB (CK-2) 1.84 (<2.37) ng/mL CK-MB (CK-2) Rel Index 1.2 L (1.5-5.0) % Troponin I < 0.012 (0.01-0.034) ng/mL B-Natriuretic Peptide < 100 (<100) Influenza A & B (PCR) Negative (Negative) Imaging Data Chest x-ray: Radiologist's impression: [address] [address] XRay Report Signed Patient: Eladio Winchester [facility]#: [id number] : 7Acct:[id number] Age/Sex: 72 / MDate of Service: 06/16/18 Loc: ED Accession Number: [id number] Procedure: XR chest 2V Ordering Provider: Nancie Vicente D.O. PROCEDURE: XR CHEST 2V INDICATIONS: short of breath TECHNIQUE: 2 views of the chest were acquired. COMPARISON: [facility], CT, CT ANGIO CHEST PE PROTOCOL, 05/07/2018, 3:28. [facility], CR, XR CHEST 1V, 05/07/2018, 2:28. FINDINGS: Surgical changes and devices: None. Lungs and pleura: Interstitial prominence within the bilateral lung bases is slightly more prominent on the current study best appreciated at the left lung base. No large effusion or pneumothorax is evident. Mediastinum: Mediastinal contours are normal. Heart size is normal. Bones and chest wall: No suspicious bony abnormalities. Soft tissues appear unremarkable. IMPRESSION: Linear infrahilar lung markings most likely represent scarring versus atelectasis. Superimposed atypical pneumonia cannot be completely excluded. Please correlate clinically. Dictated by: Samuel Tijerina M.D. on 06/16/2018 at 14:55 Approved by: Samuel Tijerina M.D. on 06/16/2018 at 14:57 ECG Data Attestation: I personally reviewed and interpreted this ECG as follows: Prior ECG tracings: available for review Interpretation: sinus tachycardia with a rate of 101 p.r. interval 155 QRS of 157 and a QTC of 456. Right bundle branch block. Patient has a prior EKG from 05/07/2018 that appears similar in all leads. MDM Narrative Medical decision making narrative: Patient arrived, patient occasionally was hypoxic was given a breathing treatment which he states was helpful. Was given 2 additional here in the department. His lab work does not show any acute changes including troponin and BNP. Patient's chest x-ray shows possible atelectasis, scarring versus pneumonia. Patient has had a little bit of recent cough and with his increasing shortness of breath discussed starting antibiotics as well as steroids for a short course. Patient states he has a inhaler at home he I did discuss possibility of pulmonary emboli but patient has had similar evaluations in the past that were negative at that time. He has not had any new risk factors such as a long distance travel or prolonged hospitalization, surgeries. he has had swelling but in both lower extremities which he states is not new or worsened from his normal. Patient's oxygen is occasionally has low as 88 but he is asymptomatic, sitting and watching basketball. We discussed possibly observing the patient prefers to return home. He has follow-up with his primary care this week Discharge Plan Departure Patient Disposition: Home Clinical Impression: Acute exacerbation of chronic obstructive airways disease, Pneumonia Discharge Date/Time: 06/16/18 19:20 Interventions: ED Discharge Assessment Last Done: 06/16/18 19:30 Instructions: DI for Chronic Obstructive Pulmonary Disease Activity Restrictions/Additional Instructions: Follow up with your physician in the next 2-3 days for recheck. Take antibiotics until completely gone. Take prednisone until gone. Use albuterol inhaler 2 puffs every 4 hours as needed for wheezing. Return to the ER for worsening symptoms, fevers greater than 100.4F, new chest pain or pressure, persistent vomiting, lightheadedness or passing out, black or bloody stools, new weakness, worsening swelling of your legs or other new or concerning symptoms. Prescriptions: New azithromycin 250 mg tablet See Rx Instructions .ROUTE .COMPLEX Qty: 4 RF: 0 prednisone 50 mg tablet 50 mg PO DAILY Qty: 5 RF: 0 albuterol sulfate 90 mcg/actuation HFA aerosol inhaler 2 puff INHALATION Q4-6H PRN (Reason: shortness of breath or wheezing) Qty: 8 RF: 0 No Action lisinopril 20 MG tablet 20 mg PO DAILY Qty: 0 RF: 0 albuterol sulfate [Ventolin HFA] 90 MCG/PUFF HFA aerosol inhaler 2 puff INH Q4HP PRN (Reason: Shortness Of Breath) RF: 0 furosemide 20 mg Tablet 20 mg PO QAM RF: 0
[2018-06-16] MEDS: methylPREDNISolone 125 MG/2 ML VIAL IV (17:07)
--- NOTE | 2018-06-16 17:14 | PC.NURSE ---
Flu Swab obtained and sent to lab
[2018-06-16 17:17] VITALS: BP 136/72; PULSE 98; RESP 17; O2SAT 93
[2018-06-16 17:32] LABS: Add Manual Diff / Slide Review NO; Basophils Absolute Auto 0 /uL (0-100); Basophils Percent Auto 0.6 % (0-2); Eosinophils Absolute Auto 100 /uL (0-450); Eosinophils Percent Auto 2.1 % (2-4); Hematocrit 45.3 % (41-53); Hemoglobin 14.4 g/dL (13.5-17.5); Lymphocytes Absolute Auto 900 /uL (1100-4500); Lymphocytes Percent Auto 12.7 % (25-40); Mean Corpuscular HGB Conc 31.8 % (30-36); Mean Corpuscular Hemoglobin 28.4 PG (26-34); Mean Corpuscular Volume 89.2 fL (80-100); Monocytes Absolute Auto 600 /uL (0-900); Monocytes Percent Auto 8.5 % (3-14); Neutrophils Absolute Auto 5400 /uL (1500-7000); Neutrophils Percent Auto 76.1 % (50-75); Platelet Count 179 X10^3/uL (150-400); Red Blood Cell Count 5.08 X10^6/uL (4.5-5.9); Red Cell Distribution Width 13.7 % (11.6-14.8); White Blood Cell Count 7.1 X10^3/uL (4.5-11.0)
[2018-06-16 17:34] LABS: BUN Creatinine Ratio 22.9 (6-22); Blood Urea Nitrogen 16 mg/dL (9-20); Calcium 9.3 mg/dL (8.4-10.2); Carbon Dioxide 32 mmol/L (22-32); Chloride 96 mmol/L (98-107); Creatine Kinase 151 U/L (55-170); Estimated Glomerular Filt Rate > 60.0 mL/min (>60); Glucose 146 mg/dL (80-110); HEMOLYSIS < 15 (0-50); Potassium 3.7 mmol/L (3.4-5.1); Sodium 137 mmol/L (137-145)
[2018-06-16 17:39] LABS: Influenza A and B by PCR Rapid Negative (Negative)
[2018-06-16 17:40] LABS: B Type Natriuretic Peptide < 100 (<100)
[2018-06-16 17:45] LABS: Troponin I < 0.012 ng/mL (0.01-0.034)
[2018-06-16 17:48] LABS: CKMB % Relative Index 1.2 % (1.5-5.0); Creatine Kinase MB 1.84 ng/mL (<2.37)
[2018-06-16 18:00] VITALS: BP 136/72; PULSE 89; RESP 18; TEMP 36.3; O2SAT 94
[2018-06-16 18:03] VITALS: PULSE 86; RESP 17; O2SAT 90
[2018-06-16] MEDS: ALBUTEROL/IPRATROPIUM 3 ML AMPUL INH (18:03)
--- NOTE | 2018-06-16 18:03 | PC.NURSE ---
RT at [facility] for breathing treatment
[2018-06-16] MEDS: ALBUTEROL 2.5 MG/3 ML NEB (ADULT) 5 MG INH (18:48)
[2018-06-16 18:49] VITALS: PULSE 97; RESP 18; O2SAT 90
[2018-06-16] MEDS: AZITHROMYCIN 250 MG TABLET 500 MG PO (19:15)
[2018-06-16 19:30] VITALS: BP 132/91; PULSE 97; RESP 21; O2SAT 90
== END 2018-06-16 19:20 | disposition home or self-care (01) ==
PROVIDERS: Emergency Provider Emergency Medicine
DX: J44.1 Chronic obstructive pulmonary disease with (acute) exacerbation (principal); J18.9 Pneumonia, unspecified organism
CPT/HCPCS: 36591; 71046; 80048; 82550; 82553; 83880; 84484; 85025; 87400; 93005; 94640; 96374; 99283; 99285; J2930; J7613

== ENCOUNTER → 2018-08-01 09:32 | Outpatient (CLI) | payer OTHER, SELFPAY ==
[2018-08-01 11:52] LABS: Prostate Specific Antigen 1.37 ng/mL (0.10-4.00)
== END ==
PROVIDERS: PCP Internal Medicine Endocrinology, Diabetes & Metabolism; Visit Provider Physician Assistant
DX: Z08 Encounter for follow-up examination after completed treatment for malignant neoplasm (principal)
CPT/HCPCS: 36415; 84153

== ENCOUNTER 2018-08-01 10:14 | Emergency (ER) | payer OTHER, SELFPAY ==
[2018-08-01 10:23] VITALS: BP 160/83; PULSE 93; RESP 14; TEMP 36.4; O2SAT 93
--- NOTE | 2018-08-01 13:30 | ED_ITS ---
HPI - Back Pain/Injury <TODD Jordan - Last Filed: 08/01/18 19:19> General Chief Complaint: Back Pain/Injury Stated Complaint: Lower back pain Time Seen by Provider: 08/01/18 13:15 Source: patient Mode of arrival: ambulatory Limitations: no limitations History of Present Illness HPI Narrative: The patient is a 72-year-old male former smoker with history of COPD presents with chief complaint of lower back pain. He states it started approximately 5 days ago. He took 400 mg of ibuprofen for her last night, otherwise took no medications for pain. He denies any numbness, tingling, weakness incontinence of bowel or incontinence of bladder. He states that he fell a month ago. He denies any chest pain shortness of breath or pain anywhere other than his right lower back. He states it radiates down a bit to his buttock. He states his back acts up on occasion, but nothing like recently. He has to drive home today. Related Data Home Medications Medication Instructions Recorded Confirmed lisinopril 20 mg PO DAILY #0 03/26/16 06/16/18 albuterol sulfate [Ventolin HFA] 2 puff INH Q4HP PRN 06/16/18 06/16/18 furosemide 20 mg PO QAM 06/16/18 06/16/18 Previous Rx's Medication Instructions Recorded albuterol sulfate 2 puff INHALATION Q4-6H PRN #8 gram 06/16/18 diclofenac sodium [Voltaren] 2 gram TOP QID PRN #100 gram 08/01/18 lidocaine 1 patch TOP DAILY #15 each 08/01/18 methocarbamol [Robaxin] 500 mg PO TID PRN #30 tab 08/01/18 Allergies Allergy/AdvReac Type Severity Reaction Status Date / Time No Known Drug Allergies Allergy Verified 04/01/18 11:02 Review of Systems <TODD Jordan - Last Filed: 08/01/18 19:19> Review of Systems GENERAL: Denies chills, fatigue, malaise, fever, sweats. HEENT: Denies sinus pain, ear pain, sore throat, difficulty swallowing, dizziness. RESPIRATORY: Denies dyspnea, cough, wheezing, hemoptysis, sputum. CARDIOVASCULAR: Denies chest pain, palpitations, orthopnea, edema, GASTROINTESTINAL: Denies nausea, vomiting, abdominal pain, diarrhea, constipation, melena. : Denies dysuria, frequency, incontinence, hematuria, urinary retention. MUSCULOSKELETAL: See HPI SKIN: Denies rash, skin lesions, or other NEUROLOGIC: Denies weakness, headache, numbness, change in speech, confusion, seizures, incoordination. PSYCHIATRIC: No concerning psychosocial issues. 12 point review of systems is negative except for those stated above PFSH <TODD Jordan - Last Filed: 08/01/18 19:19> Medical History Asthma (Chronic) Hypertension (Chronic) KORTNEY (obstructive sleep apnea) (Chronic) Social History Smoking Status: Former smoker Social History Smoking Status: Former smoker Exam <TODD Jordan - Last Filed: 08/01/18 19:19> Narrative Exam Narrative: GENERAL: This is an obese, well-developed patient, in mild distress. HEAD: Atraumatic. Normocephalic. No temporal or scalp tenderness. EYES: Pupils equal round and reactive. Extraocular motions intact. No scleral icterus. No injection or drainage. ENT: Nose without bleeding, purulent drainage or septal hematoma. Throat without erythema, tonsillar hypertrophy or exudate. Uvula midline. Airway patent. NECK: Trachea midline. No JVD or lymphadenopathy. Supple, nontender, no meningeal signs. CARDIOVASCULAR: Regular rate and rhythm without murmurs, gallops, or rubs. RESPIRATORY: Clear to auscultation. Breath sounds equal bilaterally. No wheezes, rales, or rhonchi. No cough. No increased respiratory effort. GASTROINTESTINAL: Abdomen soft, non-tender, nondistended. No hepato- splenomegaly, or palpable masses. No guarding. EXTREMITIES: No clubbing, cyanosis, or edema. No joint tenderness, effusion, or edema noted. BACK: Nontender without deformity or crepitance. No flank tenderness. No pain to palpation of C-spine or spinal column. Pain to palpation right lumbar paraspinal muscle down to right buttock. NEURO: AOx3. Stable gait. No cranial nerve deficit. Clear speech. SKIN: No rash or erythema. No erythema ecchymosis rash or abrasion noted right lower back. Initial Vital Signs Initial Vital Signs: Vital Signs Temperature 97.6 F 08/01/18 10:23 Pulse Rate 93 H 08/01/18 10:23 Respiratory Rate 14 08/01/18 10:23 Blood Pressure 160/83 H 08/01/18 10:23 Pulse Oximetry 93 08/01/18 10:23 <Nancie Vicente DO - Last Filed: 08/01/18 19:26> Initial Vital Signs Initial Vital Signs: Vital Signs Temperature 97.6 F 08/01/18 10:23 Pulse Rate 93 H 08/01/18 10:23 Respiratory Rate 14 08/01/18 10:23 Blood Pressure 160/83 H 08/01/18 10:23 Pulse Oximetry 93 08/01/18 10:23 Course <TODD Jordan - Last Filed: 08/01/18 19:19> Orders Ordered: Discontinued Medications Ketorolac Tromethamine (Toradol) 60 mg IM NOW ONE Stop: 08/01/18 13:29 Last Admin: 08/01/18 13:46 Dose: 60 mg Vital Signs - 8 hr 08/01/18 14:08 Pulse Rate 83 Respiratory Rate 17 Blood Pressure [Right Arm] 165/85 H Pulse Oximetry 93 <Nancie Vicente DO - Last Filed: 08/01/18 19:26> Orders Ordered: Discontinued Medications Ketorolac Tromethamine (Toradol) 60 mg IM NOW ONE Stop: 08/01/18 13:29 Last Admin: 08/01/18 13:46 Dose: 60 mg Vital Signs - 8 hr 08/01/18 14:08 Pulse Rate 83 Respiratory Rate 17 Blood Pressure [Right Arm] 165/85 H Pulse Oximetry 93 MDM - Back Pain/Injury <TODD Jordan - Last Filed: 08/01/18 19:19> MDM Narrative Medical decision making narrative: The patient is a 72-year-old male who presents with a chief complaint of back pain. Denies any urinary symptoms. I did give him Toradol in the emergency department. I gave him a prescription of of Voltaren gel, lidocaine patches as well as Robaxin. The patient declined imaging repeated the today. He has no obvious neurological deficit. I discussed at length that he needs to follow up with primary care provider. Discussed that if worsening or no improvement he may need imaging. Patient denies any red flags of incontinence of bowel or bladder or saddle anesthesia. Discussed return precautions including incontinence or saddle anesthesia. Patient has no questions or concerns upon discharge. Discharge Plan Departure Patient Disposition: Home Clinical Impression: Lumbar back pain Discharge Date/Time: 08/01/18 14:47 Interventions: ED Discharge Assessment Last Done: 08/01/18 14:47 Instructions: DI for Low Back Pain, DI for Back Pain With Sciatica, DI for Back Spasm Activity Restrictions/Additional Instructions: I have given you a prescription of a muscle relaxer as well as a pain patch and pain cream. He cleaned the pain patches on for 12 hours. The muscle relaxers can be sedating, so use cautiously. Please follow up with primary care provider in the next few days. Please come back to emergency department for any acute concerns including numbness, incontinence of bowel incontinence of bladder, especially numbness where you would sit on a horse. Prescriptions: New methocarbamol [Robaxin] 500 mg tablet 500 mg PO TID PRN (Reason: muscle pain) Qty: 30 RF: 0 lidocaine 5 % adhesive patch,medicated 1 patch TOP DAILY Qty: 15 RF: 0 diclofenac sodium [Voltaren] 1 % gel 2 gram TOP QID PRN (Reason: pain (scale score 1-3)) Qty: 100 RF: 0 No Action lisinopril 20 MG tablet 20 mg PO DAILY Qty: 0 RF: 0 albuterol sulfate [Ventolin HFA] 90 MCG/PUFF HFA aerosol inhaler 2 puff INH Q4HP PRN (Reason: Shortness Of Breath) RF: 0 furosemide 20 mg Tablet 20 mg PO QAM RF: 0 albuterol sulfate 90 mcg/actuation HFA aerosol inhaler 2 puff INHALATION Q4-6H PRN (Reason: shortness of breath or wheezing) Qty: 8 RF: 0 Referrals: Stevan Howard MD [Primary Care Provider] - <Nancie Vicente DO - Last Filed: 08/01/18 19:26> Cosign ED Attending Ianature Attestation: I was immediately available in the department for consultation. This documentation has been reviewed and I agree with assessment and plan. Supervised by Nancie Vicente DO
[2018-08-01] MEDS: KETOROLAC 60 MG/2 ML VIAL IM (13:46)
[2018-08-01 14:08] VITALS: BP 165/85; PULSE 83; RESP 17; O2SAT 93
--- NOTE | 2018-08-01 14:16 | PC.NURSE ---
Neuro intact. Moving all extremities, full sensation. No bowel / bladder difficulty.
== END 2018-08-01 14:47 | disposition home or self-care (01) ==
PROVIDERS: Emergency Provider Nurse Practitioner Family; PCP Internal Medicine Endocrinology, Diabetes & Metabolism
DX: M54.5 Low back pain (principal)
CPT/HCPCS: 96372; 99282; 99283; J1885

== ENCOUNTER → 2023-12-01 09:00 | Outpatient (CLI) | payer OTHER, SELFPAY | PROVIDERS: PCP Internal Medicine Endocrinology, Diabetes & Metabolism; Visit Provider Surgery | DX: I89.0 Lymphedema, not elsewhere classified (principal); L97.812 Non-pressure chronic ulcer of other part of right lower leg with fat layer exposed; R60.0 Localized edema; I25.10 Atherosclerotic heart disease of native coronary artery without angina pectoris; I10 Essential (primary) hypertension | CPT/HCPCS: 11042; 11045; 87070; 87075; 87077; 87186; 87205; 99203; 99214 ==

== ENCOUNTER → 2023-12-03 09:43 | Outpatient (CLI) | payer OTHER, SELFPAY | PROVIDERS: PCP Internal Medicine Endocrinology, Diabetes & Metabolism; Visit Provider Surgery | DX: I89.0 Lymphedema, not elsewhere classified (principal); L97.812 Non-pressure chronic ulcer of other part of right lower leg with fat layer exposed; R60.0 Localized edema | CPT/HCPCS: 29581 ==

== ENCOUNTER → 2023-12-05 10:38 | Outpatient (CLI) | payer OTHER, SELFPAY | PROVIDERS: PCP Internal Medicine Endocrinology, Diabetes & Metabolism; Visit Provider Physician Assistant | DX: I89.0 Lymphedema, not elsewhere classified (principal); L97.812 Non-pressure chronic ulcer of other part of right lower leg with fat layer exposed; R60.0 Localized edema; M79.661 Pain in right lower leg | CPT/HCPCS: 29581 ==

== ENCOUNTER → 2023-12-08 08:54 | Outpatient (CLI) | payer OTHER, SELFPAY | PROVIDERS: PCP Internal Medicine Endocrinology, Diabetes & Metabolism; Referring Provider Internal Medicine Endocrinology, Diabetes & Metabolism; Visit Provider Surgery | DX: L97.812 Non-pressure chronic ulcer of other part of right lower leg with fat layer exposed (principal); I89.0 Lymphedema, not elsewhere classified | CPT/HCPCS: 97602; 99213 ==

== ENCOUNTER → 2023-12-11 10:04 | Outpatient (CLI) | payer OTHER, SELFPAY | PROVIDERS: PCP Internal Medicine Endocrinology, Diabetes & Metabolism; Visit Provider Surgery | DX: I89.0 Lymphedema, not elsewhere classified (principal) | CPT/HCPCS: 29581 ==

== ENCOUNTER → 2023-12-15 08:37 | Outpatient (CLI) | payer OTHER, SELFPAY | PROVIDERS: PCP Internal Medicine Endocrinology, Diabetes & Metabolism; Visit Provider Surgery | DX: L97.812 Non-pressure chronic ulcer of other part of right lower leg with fat layer exposed (principal); I89.0 Lymphedema, not elsewhere classified; R60.0 Localized edema | CPT/HCPCS: 29581; 93010; 99213 ==

== ENCOUNTER 2023-12-15 09:22 | Inpatient (IN) | payer OTHER, MEDICARE, SELFPAY ==
[2023-12-15] VITALS (18 sets, daily range): BP systolic 126–181; BP diastolic 61–90; PULSE 77–99; RESP 11–27; TEMP 35.7–37.7; O2SAT 93–96; BMI 40.4
--- NOTE | 2023-12-15 | DI.ECHO.S_ITS ---
[facility] : : [id number] : : [place] : : [id number] : : Phone: [phone] Echocardiogram Report + + :Name: FAUSTO CRUZ Study Date: 12/15/2023 Height: 70 in : :[facility] ReadingLocation: Weight: 282 lb : : Gender: Male BSA: 2.4 m2 : :: 1945 Age: 78 yrs BP: 151/74 mmHg: :Reason For Study: CONGESTIVE HEART FAILURE : :Ordering Physician: LOIS, : :TERRY Blackburn Performed By: Ny Silva : :Referring: TERRY ABREU : + + Interpretation Summary The left ventricle is normal in size. The ejection fraction is estimated to be 65-70%. The interventricular septum is flattened, consistent with a right ventricular pressure/volume condition. The right ventricle is severely dilated. Even though TAPSE is normal, globally RV function appears to be decreased moderately. The mitral valve mean gradient is 4.7 mmHg. There is mild mitral stenosis. There is mild mitral regurgitation. The aortic valve is moderately calcified. The aortic valve is not well visualized. The peak aortic velocity is 3.6 m/sec. The aortic valve mean gradient is 32 mmHg. The calculated aortic valve area is 1.1 cm2. sev ratio: 0.30. Overall aortic stenosis appears to be in moderate range. There is mild to moderate aortic regurgitation. Tricuspid regurgitation not well visualized.There is likely at least moderate tricuspid regurgitation best seen in subcostal window. The right ventricular systolic pressure is estimated to be at least 78 mmHg based on an estimated right atrial pressure of 15 mm Hg. There is severe pulmonary hypertension. Findings were reported to Dr. Terry Abreu. Procedure: A two-dimensional transthoracic echocardiogram with color flow and Doppler was performed. The study quality was technically difficult. There is no prior echocardiogram noted for this patient. A contrast injection of Definity was performed to improve assessment of LV function. The heart rate ranged between 77-89 bpm during the study. The patient was in normal sinus rhythm during the exam. The patient had a bundle branch block rhythm during the exam. Left Ventricle: The left ventricle is normal in size. There is mild concentric left ventricular hypertrophy. There is no thrombus. The ejection fraction is estimated to be 65-70%. The interventricular septum is flattened, consistent with a right ventricular pressure/volume condition. MV E/A: 0.87 Med Peak E' Eros: 3.8 cm/sec E/E' med: 32.3. Likely elevated LV filling pressure. Right Ventricle: The right ventricle is severely dilated. Even though TAPSE is normal, globally RV function appears to be decreased moderately. Atria: The left atrium is moderately dilated. The right atrium is moderately dilated. There is no Doppler evidence for an interatrial shunt. Mitral Valve: There is moderate mitral annular calcification. The mitral valve chordae are thickened and/or calcified. The mitral valve mean gradient is 4.7 mmHg. There is mild mitral stenosis. No significant mitral valve stenosis. There is mild mitral regurgitation. Aortic Valve: The aortic valve is moderately calcified. The aortic valve is not well visualized. The peak aortic velocity is 3.6 m/sec. The aortic valve mean gradient is 32 mmHg. The calculated aortic valve area is 1.1 cm2. There is mild to moderate aortic regurgitation. Tricuspid Valve: The tricuspid valve is not well visualized. The right ventricular systolic pressure is estimated to be at least 78 mmHg based on an estimated right atrial pressure of 15 mm Hg. Tricuspid regurgitation not well visualized.There is likely at least moderate tricuspid regurgitation best seen in subcostal window. There is severe pulmonary hypertension. Pulmonic Valve: The pulmonic valve leaflets are thin and pliable; valve motion is normal. There is mild pulmonic regurgitation. Great Vessels: The aortic root is normal size. The dimensions of the ascending aorta are normal. The IVC is dilated (diameter is greater than 2.1 cm) and it collapses less than 50% with a sniff. This suggests a high right atrial pressure of 15 mm Hg. Pericardium/ Pleura There is no pericardial effusion. There is no pleural effusion. MMode/2D Measurements & Calculations LVIDd: 4.8 cm LVOT diam: 2.1 cm LVIDs: 3.4 cm Ao root diam: 2.9 cm FS: 30.0 % asc Aorta Diam: 3.2 cm IVSd: 1.2 cm Ao Arch Diam (Prox Trans): 3.0 cm LVPWd: 1.2 cm LV schmidt. diameter/BSA (cm/m^2): 2.0 LV sys. diameter/BSA (cm/m^2): 1.4 LA A2 area: 29.6 cm2 RA long axis: 5.6 cm LA A4 area: 23.6 cm2 RA area: 24.7 cm2 LA length (vol): 6.0 cm RA vol: 93.3 ml LA vol: 99.1 ml RA : 38.6 ml/m2 LA vol index: 41.0 ml/m2 IVC diam: 3.2 cm RVD1 (basal): 5.6 cm RVD2 (mid): 4.8 cm TAPSE: 2.6 cm Doppler Measurements & Calculations Ao V2 max: 366.3 cm/sec LVOT Max Eros: 117.0 cm/sec Ao V2 mean: 263.1 cm/sec LV V1 max P.5 mmHg Ao max P.7 mmHg LV V1 VTI: 22.1 cm Ao mean P.9 mmHg EDDIE(I,D): 1.0 cm2 Ao V2 VTI: 72.7 cm EDDIE(V,D): 1.1 cm2 sev ratio: 0.30 EDDIE indexed to BSA (cm^2/m^2): 0.43 AI P1/2t: 468.2 msec AI dec slope: 246.6 cm/sec2 MV E max eros: 121.3 cm/sec TR max eros: 397.3 cm/sec MV A max eros: 140.2 cm/sec TR max P.1 mmHg MV E/A: 0.87 PA V2 max: 94.7 cm/sec Med Peak E' Eros: 3.8 cm/sec PA V2 mean: 68.5 cm/sec E/E' med: 32.3 PA mean P.1 mmHg Lat Peak E' Eros: 7.9 cm/sec PA pr(Accel): 46.5 mmHg E/E' lat: 15.3 E/e' average: 23.8 MV dec time: 0.31 sec MVA(VTI): 1.5 cm2 MV V2 mean: 102.4 cm/sec SV(LVOT): 75.6 ml MV mean P.7 mmHg MV V2 VTI: 49.6 cm Reading Physician:04:44 PM
--- NOTE | 2023-12-15 09:31 | ED_ITS ---
HPI - SOB/Dyspnea General Chief Complaint: Shortness of Breath/Dyspnea Stated Complaint: sent from wound care for breathing treatment Time Seen by Provider: 12/15/23 09:31 History of Present Illness HPI Narrative: Patient is a 78-year-old male with past medical history of COPD comes into the ED for evaluation of low oxygen. [facility] care for his lower extremity when they states that they noticed that his pulse ox was low. States that it was in the low 80s. He adamantly denies any chest pain or shortness of breath. Does not require supplemental oxygen at baseline. Had arrival patient pulse ox low 80s was placed on 6 L nasal cannula. No trauma no falls. Patient states that he has noticed increased swelling to his legs Related Data Home Medications Medication Instructions Recorded Confirmed lisinopril 20 mg tablet 20 mg PO DAILY ##0 03/26/16 06/16/18 albuterol sulfate 90 mcg/actuation 2 puff INH Q4HP PRN Shortness Of 06/16/18 06/16/18 aerosol inhaler (Ventolin HFA) Breath furosemide 20 mg tablet 20 mg PO QAM 06/16/18 06/16/18 Previous Rx's Medication Instructions Recorded albuterol sulfate 90 mcg/actuation 2 puff inhalation Q4-6H PRN 06/16/18 aerosol inhaler shortness of breath or wheezing #8 grams diclofenac sodium 1 % topical gel 2 gram topical QID PRN pain (scale 08/01/18 (Voltaren) score 1-3) #100 grams lidocaine 5 % topical patch 1 patch topical DAILY #15 ea 08/01/18 methocarbamol 500 mg tablet 500 mg PO TID PRN muscle pain #30 08/01/18 (Robaxin) tabs Allergies Allergy/AdvReac Type Severity Reaction Status Date / Time No Known Drug Allergies Allergy Verified 04/01/18 11:02 Review of Systems Review of Systems Narrative: HEENT: Denies headache, eye drainage, eye irritation, head trauma, sore throat, voice change Cardiovascular: Denies any chest pain, palpitations, shortness of breath, tachycardia Respiratory: Positive low pulse ox, Denies any shortness of breath, cough, wheeze, stridor GI/: Denies any abdominal pain, nausea, vomiting, diarrhea, bright red blood per rectum, melanotic stools, urinary frequency, urinary retention, dysuria, hematuria MSK: Denies any joint pain, muscle pains, swelling Skin: Denies any rashes, lesions, discoloration Neuro: Denies any headache, lightheadedness, dizziness, fainting, weakness Psych: Denies SI/HI Patient History Medical History (Updated 08/16/18 @ 00:00 by ) KORTNEY (obstructive sleep apnea) Asthma Hypertension Social History Smoking Status: Former smoker Smoking Status: Former smoker alcohol intake frequency: 0-2 drinks per day Substance Use Type: does not use Exam Narrative Exam Narrative: General: Cooperative, comfortable, well-developed, not in acute distress HEENT: Normocephalic, atraumatic, PERRLA, normal sclera, eyelids normal, Neck: Active full range of motion, atraumatic Chest: Normal to inspection, negative crepitus, no overlying erythema ecchymosis Respiratory: Normal respiratory effort, not in acute respiratory distress, clear to auscultation bilaterally negative cough, wheeze, tachypnea, rhonchi, rales Cardiology: Regular rate rhythm negative gallop, murmur, rubs GI/: Normal to inspection, soft, nonrigid, no tenderness to palpation, exam deferred MSK: Full range of active range of motion of all 4 extremities, atraumatic Skin: No rashes lesions noted Neuro: Alert awake oriented x3, moves all 4 extremities spontaneously, cranial nerves intact, able to answer all questions appropriately follows commands appropriately Psych: Cooperative, negative suicidal or homicidal ideations Initial Vital Signs Initial Vital Signs: Vital Signs Blood Pressure 181/87 H 12/15/23 09:30 Course Orders Ordered: ED Orders 12/15/23 09:37 XR chest 1V Stat EKG-12 Lead Stat 12/15/23 09:41 Covid-19 + FLU A/B + RSV - PCR Stat 12/15/23 09:50 CBC Auto Diff [Complete Blood Count AUTO DIFF] Stat CMP [Comprehensive Metabolic Panel] Stat Lipase Stat MAG [Magnesium] Stat NT-proBNP (BNP-Adult 18+) Stat Troponin & CK Cardiac Panel Stat Albuterol (Albuterol 2.5 Mg/3 Ml Neb (Adult)) 2.5 mg INH [id number] PRN PRN Reason: Shortness Of Breath Last Admin: 12/15/23 09:41 Dose: 2.5 mg Documented By: ROBERT Discontinued Medications Furosemide (Furosemide 40 Mg/4 Ml Vial) 40 mg IV NOW ONE Stop: 12/15/23 11:02 Last Admin: 12/15/23 11:14 Dose: 40 mg Documented By: ANTONIETTA Magnesium Sulfate (Magnesium Sulfate) 2 gm in 50 mls @ 150 mls/hr IV NOW ONE Stop: 12/15/23 09:56 Last Infusion: 12/15/23 10:19 Dose: Infused Documented By: ERICA Co-signed By: ALFREDO Admin: 12/15/23 09:57 Dose: 150 mls/hr Documented By: ERICA Co-signed By: ALFREDO Vital Signs Vital signs: Vital Signs - 8 hr 12/15/23 09:30 12/15/23 09:31 12/15/23 09:36 Temperature 99.8 F H Pulse Rate 91 H 99 H Respiratory Rate 22 Blood Pressure 181/87 H 181/87 H Pulse Oximetry 95 94 Oxygen Delivery Method Nasal Cannula Oxygen Flow Rate 6 Fraction of Inspired Oxygen 12/15/23 09:41 12/15/23 10:00 12/15/23 10:01 Temperature Pulse Rate 86 88 86 Respiratory Rate 18 27 H 21 Blood Pressure Pulse Oximetry 96 95 96 Oxygen Delivery Method Nasal Cannula Nasal Cannula Nasal Cannula Oxygen Flow Rate 6 6 6 Fraction of Inspired Oxygen 44 12/15/23 10:01 12/15/23 10:30 12/15/23 10:54 Temperature Pulse Rate 83 81 Respiratory Rate 16 16 Blood Pressure 151/70 H Pulse Oximetry 94 96 Oxygen Delivery Method Nasal Cannula Nasal Cannula Oxygen Flow Rate 6 6 Fraction of Inspired Oxygen 12/15/23 10:54 12/15/23 11:00 Temperature Pulse Rate 84 Respiratory Rate 17 Blood Pressure 145/68 H Pulse Oximetry 93 Oxygen Delivery Method Nasal Cannula Oxygen Flow Rate 6 Fraction of Inspired Oxygen MDM - SOB/Dyspnea Differential Diagnosis Differential diagnosis: Likely acute exacerbation of chronic obstructive airways disease, congestive heart failure, community acquired pneumonia and other Medical Records Attestation: I reviewed the patient's medical records. Lab Data Attestation: I reviewed the patient's lab results. 12/15/23 09:50 12/15/23 09:50 Labs: Lab Results 12/15/23 12/15/23 Range/Units 09:41 09:50 WBC 7.0 (4.5-11.0) X10^3/uL RBC 4.41 L (4.5-5.9) X10^6/uL Hgb 13.0 L (13.5-17.5) g/dL Hct 41.4 (41-53) % MCV 93.9 (80-100) fL MCH 29.5 (26-34) PG MCHC 31.4 (30-36) % RDW 15.0 H (11.6-14.8) % Plt Count 168 (150-400) X10^3/uL Neut % (Auto) 71.4 (50-75) % Lymph % (Auto) 17.5 L (25-40) % [place] % (Auto) 8.4 (3-14) % Eos % (Auto) 1.6 L (2-4) % Baso % (Auto) 1.1 (0-2) % Neut # (Auto) 5000 (2367-3353) /uL Lymph # (Auto) 1200 (2481-7281) /uL [place] # (Auto) 600 (0-900) /uL Eos # (Auto) 100 (0-450) /uL Baso # (Auto) 100 (0-100) /uL Sodium 140 (137-145) mmol/L Potassium 4.3 (3.4-5.1) mmol/L Chloride 101 (98-107) mmol/L Carbon Dioxide 35 H (22-32) mmol/L BUN 16 (9-20) mg/dL Creatinine 0.58 L (0.66-1.25) mg/dL Estimated GFR > 60 (>60) mL/min BUN/Creatinine Ratio 27.6 H (6-22) Glucose 109 (80-110) mg/dL Calcium 8.5 (8.4-10.2) mg/dL Magnesium 2.1 (1.6-2.3) mg/dL Total Bilirubin 0.6 (0.2-1.3) mg/dL AST 51 (17-59) IU/L ALT 59 H (<50) IU/L Alkaline Phosphatase 70 (38-126) U/L Total Creatine Kinase 71 (55-170) U/L Troponin I 0.018 (0.01-0.034) ng/mL NT-Pro-B Natriuret Pep 979 H (<450) pg/mL Total Protein 7.3 (6.3-8.2) g/dL Albumin 3.7 (3.5-5.0) g/dL Globulin 3.6 (1.7-4.1) g/dL Albumin/Globulin Ratio 1.0 (1.0-2.8) Lipase 38 (23-300) U/L SARS-CoV-2 (PCR) Negative (Negative) Influenza A (RT-PCR) Flu a negative (NEGATIVE) Influenza B (RT-PCR) Flu b negative (NEGATIVE) RSV (PCR) Negative (Negative) ECG Data Attestation: I personally reviewed and interpreted this ECG as follows: Interpretation: EKG interpreted by ED physician sinus at 89 beats per minute, right bundle branch block noted, QTC 523, nonspecific ST changes no STEMI. MDM Narrative Medical decision making narrative: Patient is a 78-year-old male history of COPD not on supplemental oxygen at baseline, comes in from wound care clinic for hypoxemia. Patient was doing his normal follow-up for his chronic foot wounds when they noticed his pulse ox was in low 80s. At time of arrival here patient pulse ox low 80s placed on 6 L nasal cannula, lab work imaging consistent with CHF, patient states that he has not been ?mandaeism with his Lasix and does state that he has been having worsening swelling to his lower extremity. Stable to down titrate supplemental oxygen at 3 L. given patient hypoxic with lab and imaging consistent with CHF will require admission for diuresis. The patient's management plan was discussed Dr. Don, who agrees to admit the patient to their service and assumes care of this patient at this time. Full admission orders will be placed by the primary team. Discharge Plan Departure Admit Date/Time: 12/15/23 11:48 Admit Provider: Terry Don
--- NOTE | 2023-12-15 09:37 | DI.RAD.S_ITS ---
PROCEDURE: XR CHEST 1V INDICATIONS: sob TECHNIQUE: One view of the chest was acquired. COMPARISON: [facility], CR, XR CHEST 2V, 06/16/2018, 15:43. FINDINGS: Surgical changes and devices: None. Lungs and pleura: Patchy bilateral atelectasis. No pleural effusions or pneumothorax. Mediastinum: Mediastinal contours appear normal. Heart size is normal. Bones and chest wall: No suspicious bony lesions. Overlying soft tissues appear unremarkable. IMPRESSION: Patchy bilateral atelectasis. Dictated by: Carlos Richter M.D. on 12/15/2023 at 10:29 Approved by: Carlos Richter M.D. on 12/15/2023 at 10:30
[2023-12-15] MEDS: ALBUTEROL 2.5 MG/3 ML NEB (ADULT) INH (09:41)
--- NOTE | 2023-12-15 09:45 | EKG_ITS ---
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
[2023-12-15] MEDS: MAGNESIUM SULFATE 2 GM/50 ML PIGGYBACK IV (09:57)
[2023-12-15 09:59] LABS: Add Manual Diff / Slide Review NO; Basophils Absolute Auto 100 /uL (0-100); Basophils Percent Auto 1.1 % (0-2); Eosinophils Absolute Auto 100 /uL (0-450); Eosinophils Percent Auto 1.6 % (2-4); Hematocrit 41.4 % (41-53); Lymphocytes Absolute Auto 1200 /uL (1100-4500); Lymphocytes Percent Auto 17.5 % (25-40); Mean Corpuscular HGB Conc 31.4 % (30-36); Mean Corpuscular Hemoglobin 29.5 PG (26-34); Mean Corpuscular Volume 93.9 fL (80-100); Monocytes Absolute Auto 600 /uL (0-900); Monocytes Percent Auto 8.4 % (3-14); Neutrophils Absolute Auto 5000 /uL (1500-7000); Neutrophils Percent Auto 71.4 % (50-75); Platelet Count 168 X10^3/uL (150-400); Red Blood Cell Count 4.41 X10^6/uL (4.5-5.9)
[2023-12-15 10:14] LABS: Alanine Aminotransferase 59 IU/L (<50); Albumin 3.7 g/dL (3.5-5.0); Alkaline Phosphatase 70 U/L (38-126); Aspartate Aminotransferase 51 IU/L (17-59); BUN Creatinine Ratio 27.6 (6-22); Bilirubin Total 0.6 mg/dL (0.2-1.3); Blood Urea Nitrogen 16 mg/dL (9-20); Calcium 8.5 mg/dL (8.4-10.2); Carbon Dioxide 35 mmol/L (22-32); Chloride 101 mmol/L (98-107); Creatine Kinase 71 U/L (55-170); Estimated Glomerular Filt Rate > 60 mL/min (>60); Globulin 3.6 g/dL (1.7-4.1); Glucose 109 mg/dL (80-110); HEMOLYSIS 21 (0-50); Lipase 38 U/L (23-300); Magnesium 2.1 mg/dL (1.6-2.3); Potassium 4.3 mmol/L (3.4-5.1); Sodium 140 mmol/L (137-145); Total Protein 7.3 g/dL (6.3-8.2)
[2023-12-15 10:26] LABS: NT-proBNP (BNP-Adult 18+) 979 pg/mL (<450); Troponin I 0.018 ng/mL (0.01-0.034)
[2023-12-15 10:26] LABS: Influenza A - CEPHEID Flu A NEGATIVE (NEGATIVE); Influenza B - CEPHEID Flu B NEGATIVE (NEGATIVE); Respiratory Syncytial Virus Negative (Negative)
[2023-12-15 10:31] LABS: COVID-19 CEPHEID 4-PLEX PCR Negative (Negative)
[2023-12-15] MEDS: FUROSEMIDE 40 MG/4 ML VIAL IV ×2 (11:14→16:00)
--- NOTE | 2023-12-15 12:14 | PM.HP.1 ---
History of Present Illness History of Present Illness Date Patient Seen: 12/15/23 Chief complaint: sent from wound care for breathing treatment Narrative: From ED doctor: Patient is a 78-year-old male with past medical history of COPD comes into the ED for evaluation of low oxygen. [facility] care for his lower extremity when they states that they noticed that his pulse ox was low. States that it was in the low 80s. He adamantly denies any chest pain or shortness of breath. Does not require supplemental oxygen at baseline. Had arrival patient pulse ox low 80s was placed on 6 L nasal cannula. No trauma no falls. Patient states that he has noticed increased swelling to his legs. Additional information: He was not been taking his water pills for about 2 weeks. He was had progressive leg edema and dyspnea with movement. He denies any chest pain. He also was drinking pickle juice yesterday for a hand cramp. He denies any recent smoking or alcohol intake. He does not have a specific reason for not taking his water pill. In the ED he was found to have pulmonary edema. He also notes that he was taking inhalations of his albuterol recently with no real improvement of his breathing. He also did have some degree of orthopnea. He denies any nausea, vomiting or diaphoresis. 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 He lives alone. He has been attending the [facility] in [place] for about 2 weeks for wounds which are wrapped. This is where he was discovered to be hypoxemic by their oximeter reading. He was sent to the emergency department. [facility] Medical History (Updated 12/15/23 @ 13:11 by Ayad Enriquez DO) KORTNEY (obstructive sleep apnea) Asthma Hypertension Social History household members: none Smoking Status: Former smoker alcohol intake: former Meds Home Medications and Allergies Home Medications Medication Instructions Recorded Confirmed Type lisinopril 20 mg tablet 20 mg PO DAILY ##0 03/26/16 12/15/23 History albuterol sulfate 90 mcg/actuation 2 puff INH Q4HP PRN Shortness Of 06/16/18 12/15/23 History aerosol inhaler (Ventolin HFA) Breath atorvastatin 80 mg tablet 80 mg PO DAILY 12/15/23 12/15/23 History darolutamide 300 mg tablet (Nubeqa) 600 mg PO BID 12/15/23 12/15/23 History Allergies Allergy/AdvReac Type Severity Reaction Status Date / Time No Known Drug Allergies Allergy Verified 04/01/18 11:02 Review of Systems Review of Systems Narrative: All else reviewed and otherwise unremarkable except as noted in the history and physical. Exam Vital Signs (past 8 hours): - 12/15/23 09:30 12/15/23 09:31 12/15/23 09:36 Temperature 99.8 F H Pulse Rate 91 H 99 H Respiratory Rate 22 Blood Pressure 181/87 H 181/87 H Pulse Oximetry 95 94 Oxygen Delivery Method Nasal Cannula Oxygen Flow Rate 6 Fraction of Inspired Oxygen 12/15/23 09:41 12/15/23 10:00 12/15/23 10:01 Temperature Pulse Rate 86 88 86 Respiratory Rate 18 27 H 21 Blood Pressure Pulse Oximetry 96 95 96 Oxygen Delivery Method Nasal Cannula Nasal Cannula Nasal Cannula Oxygen Flow Rate 6 6 6 Fraction of Inspired Oxygen 44 12/15/23 10:01 12/15/23 10:30 12/15/23 10:54 Temperature Pulse Rate 83 81 Respiratory Rate 16 16 Blood Pressure 151/70 H Pulse Oximetry 94 96 Oxygen Delivery Method Nasal Cannula Nasal Cannula Oxygen Flow Rate 6 6 Fraction of Inspired Oxygen 12/15/23 10:54 12/15/23 11:00 Temperature Pulse Rate 84 Respiratory Rate 17 Blood Pressure 145/68 H Pulse Oximetry 93 Oxygen Delivery Method Nasal Cannula Oxygen Flow Rate 6 Fraction of Inspired Oxygen Fraction of Inspired Oxygen 44 SaO2/FiO2 Ratio 218 Oxygen Delivery Method Nasal Cannula Oxygen Flow Rate 6 Narrative Exam Narrative: NAD, alert and oriented, fluent speech, calm. Normocephalic skull, EOMI, anicteric sclera, symmetric pupils. Oropharynx unremarkable, no droop. Neck supple, midline trachea, no adenopathy. Lungs clear, normal rate and effort. Some basilar crackles. Heart regular, no murmur gallop or rub. Abdomen is soft, non distended and non tender. Extremities are notable for gross edema of the legs which is pitting to the knees. He also has swelling of both hands and forearms. His legs are wrapped from the wound care. Skin is free of rash or lesions. Joints are not swollen or deformed. Judgment appears to be normal. Objective ECG Impression: Right bundle branch block Septal infarct , age undetermined NO SIGNIFICANT CHANGE FROM PRIOR TRACING Imaging Chest x-ray: My impression: Pulmonary edema with fluid in the fissure on the right and peribronchial cuffing as well as cephalization. Radiologist's impression: IMPRESSION: Patchy bilateral atelectasis. Labs 12/15/23 09:50 12/15/23 09:50 Labs: Laboratory Results - last 24 hr 12/15/23 12/15/23 09:41 09:50 WBC 7.0 RBC 4.41 L Hgb 13.0 L Hct 41.4 MCV 93.9 MCH 29.5 MCHC 31.4 RDW 15.0 H Plt Count 168 Neut % (Auto) 71.4 Lymph % (Auto) 17.5 L [place] % (Auto) 8.4 Eos % (Auto) 1.6 L Baso % (Auto) 1.1 Neut # (Auto) 5000 Lymph # (Auto) 1200 [place] # (Auto) 600 Eos # (Auto) 100 Baso # (Auto) 100 Sodium 140 Potassium 4.3 Chloride 101 Carbon Dioxide 35 H BUN 16 Creatinine 0.58 L Estimated GFR > 60 BUN/Creatinine Ratio 27.6 H Glucose 109 Calcium 8.5 Magnesium 2.1 Total Bilirubin 0.6 AST 51 ALT 59 H Alkaline Phosphatase 70 Total Creatine Kinase 71 Troponin I 0.018 NT-Pro-B Natriuret Pep 979 H Total Protein 7.3 Albumin 3.7 Globulin 3.6 Albumin/Globulin Ratio 1.0 Lipase 38 SARS-CoV-2 (PCR) Negative Influenza A (RT-PCR) Flu a negative Influenza B (RT-PCR) Flu b negative RSV (PCR) Negative Assessment & Plan Assessment & Plan narrative: 1. Acute hypoxic respiratory failure, present on admission and active. 2. Acute pulmonary edema, present on admission and active. 3. Presumed heart failure without known EF, present on admission and active. 4. Chronic abnormal EKG with a right bundle branch block, present on admission and stable. 5. COPD, present on admission and active. 6. Hypertension, present on admission and active. Plan: -support with O2, wean as able. -diurese with Lasix 40 IV q.12 hours. -trend troponins. -2D echo to assess LV function and rule out wall motion abnormalities. -bronchodilators and oral prednisone 40 daily for possible component of COPD. -continue usual blood pressure medications. Full resuscitation Observation status, anticipate a 1 midnight hospital stay. Time-Based Coding :: 40 min spent with patient and on the chart (including review of chart, obtaining history, exam, reviewing outside data, placing orders, documenting exam and treatment plan, and counseling patient) on 12/14. Quality MIPS - Admit I confirm the patient?s Advance Care Plan is present, Code status is documented, Surrogate decision maker is in patient?s record [If Yes, STOP here]: Yes MIPS - Meds 'Current medications' to include all prescriptions, [id number] products, herbals, cannabis/cannabidiol products, and vitamin/mineral/dietary (nutritional) supplements. I have utilized all available resources to obtain, update, or review the patient?s current medications. [If Yes, STOP here]: Yes
[2023-12-15] MEDS: HEPARIN 5,000 UNIT/ML VIAL 5000 UNIT SUBCUT ×2 (13:33→20:53)
--- NOTE | 2023-12-15 18:53 | PC.NURSE ---
Pt. admitted from ER to room 224 approximately 1240 today. Oriented to room and call light. Patient states he is ambulatory, denies falls, and declines assistance getting from stretcher to bed. Urinal placed within reach. Patient on 6L NC with continuous pulse ox. Denies pain. Right leg is wrapped in dressing from wound clinic and is CDI. Call light placed within reach.
[2023-12-15] MEDS: SODIUM CHLORIDE 0.9% FLUSH 10 ML IV (20:53)
[2023-12-15 20:56] LABS: Troponin I 0.017 ng/mL (0.01-0.034)
[2023-12-16] VITALS (11 sets, daily range): BP systolic 133–158; BP diastolic 68–88; PULSE 68–91; RESP 14–23; TEMP 31–36; O2SAT 90–97
[2023-12-16 01:20] LABS: Allen Test for ABG Passed? Positive; Base Excess ABG 12.8 mmol/L (-2-3); Blood Gas Collection Site Right Radial; Delivery System Cannula; HCO3 ABG 46 mmol/L (23-27); Oxygen Saturation ABG 87 % (95-100); PCO2 ABG 99.9 mmHg (35-45); PO2 ABG 64 mmHg (80-100); TCO2 ABG 48 mmol/L (23-27)
--- NOTE | 2023-12-16 01:21 | PC.NURSE ---
Addendum entered by Diane Gupta R.N. 12/16/23 04:41: Patient slept with Bipap on until 0430, then wanted it off, placed on 3L NC. Okay to give Am IV Lasix early per Dr Curiel. 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 VSS, on 6L NC SpO2 >93% denies shortness of breath, dim crackles posterior bases, otherwise clear. BLEs wrapped. Denies pain. At midnight, patient was sleeping, but very hard to wake for vitals, disoriented. VSS, SpO2 96% on 6L NC, O2 decreased to 2L, CBG 100. ABG obtained by RT. pH 7.27, pCO2 99.9, pO2 64.0, RT notified night Hospitalist who ordered Bipap, the patient initially refused, then agreed after ambulating into BR, steady on feet, remains drowsy, mentation clearing. 30% FIO2, 02/28 at 0100.
[2023-12-16 01:23] LABS: pH ABG 7.27 (7.35-7.45)
[2023-12-16 03:35] LABS: Allen Test for ABG Passed? Positive; Base Excess ABG 13.3 mmol/L (-2-3); Blood Gas Collection Site Right Radial; Delivery System BiPAP; HCO3 ABG 46 mmol/L (23-27); Oxygen Saturation ABG 92 % (95-100); PCO2 ABG 94.1 mmHg (35-45); PO2 ABG 75 mmHg (80-100); Respiratory Rate 20; TCO2 ABG 48 mmol/L (23-27); pH ABG 7.29 (7.35-7.45)
[2023-12-16] MEDS: FUROSEMIDE 40 MG/4 ML VIAL IV (03:52)
[2023-12-16 04:14] LABS: Add Manual Diff / Slide Review NO; Basophils Absolute Auto 0 /uL (0-100); Basophils Percent Auto 0.4 % (0-2); Eosinophils Absolute Auto 100 /uL (0-450); Hematocrit 42.9 % (41-53); Hemoglobin 13.3 g/dL (13.5-17.5); Lymphocytes Absolute Auto 900 /uL (1100-4500); Lymphocytes Percent Auto 11.6 % (25-40); Mean Corpuscular HGB Conc 31.1 % (30-36); Mean Corpuscular Hemoglobin 29.4 PG (26-34); Mean Corpuscular Volume 94.5 fL (80-100); Monocytes Absolute Auto 600 /uL (0-900); Monocytes Percent Auto 7.5 % (3-14); Neutrophils Absolute Auto 5800 /uL (1500-7000); Neutrophils Percent Auto 78.5 % (50-75); Platelet Count 148 X10^3/uL (150-400); Red Blood Cell Count 4.53 X10^6/uL (4.5-5.9); White Blood Cell Count 7.4 X10^3/uL (4.5-11.0)
[2023-12-16 04:28] LABS: BUN Creatinine Ratio 23.5 (6-22); Blood Urea Nitrogen 16 mg/dL (9-20); Calcium 8.3 mg/dL (8.4-10.2); Chloride 95 mmol/L (98-107); Estimated Glomerular Filt Rate > 60 mL/min (>60); Glucose 118 mg/dL (80-110); Potassium 4.3 mmol/L (3.4-5.1); Sodium 138 mmol/L (137-145)
--- NOTE | 2023-12-16 04:31 | RT ---
0430 -pt requesting to remove BiPAP at this time. Was placed on 3L NC: SpO2 95%, HR 76 BPM. RN aware.
[2023-12-16 04:34] LABS: Carbon Dioxide 35 mmol/L (22-32); HEMOLYSIS 25 (0-50)
--- NOTE | 2023-12-16 04:50 | RT ---
RT discussed with the pt regarding the importance of BiPAP therapy. The pt is refusing to go back on BiPAP at this time. He is currently on 3L NC. AYANA godfrey. Dr. Curiel notified.
--- NOTE | 2023-12-16 05:10 | PM.EVENT ---
Event Note Event Note (Rapid Response, Code, or fall): I was notified by patient's nursing staff that the patient is more lethargic. Stat ABG done which shows CO2 rentention pH 7.27/99/64/46. Patient however refused Bipap. We were able to convince the patient and he agreed to Bipap for short period of time. repeat gas shows 7.29/94/74/45. Will continue to monitor the patient and encourage Bipap.
--- NOTE | 2023-12-16 05:51 | RT ---
0548 - pt refusing BiPAP.
--- NOTE | 2023-12-16 07:53 | PM.PN.1 ---
Subjective Subjective Interval history: Summary: He was admitted with volume overload and CHF. He was started on diuretics. CPAP overnight, he was his chronically part of the time. Echo revealed probable chronic pulmonary hypertension. S: He was up all night in interrupted for various things. He denies any chest pain. He has some improvement of his breathing and edema. Exam Vital Signs (past 8 hours): - 12/16/23 00:00 12/16/23 00:38 12/16/23 02:00 Temperature 96.1 F L Pulse Rate 80 Respiratory Rate 23 Blood Pressure 142/76 H 156/81 H Pulse Oximetry 93 Oxygen Flow Rate 4 Fraction of Inspired Oxygen 30 35 12/16/23 03:41 12/16/23 04:00 Temperature 96.6 F L Pulse Rate 68 Respiratory Rate 17 Blood Pressure 156/81 H Pulse Oximetry 94 Oxygen Flow Rate 4 Fraction of Inspired Oxygen 35 35 Fraction of Inspired Oxygen 35 SaO2/FiO2 Ratio 258 Oxygen Delivery Method Nasal Cannula Oxygen Flow Rate 4 Narrative Exam Narrative: NAD, alert and oriented. Fluent speech. He was on oxygen, nasal cannula. Lungs are clear, normal rate and effort. Diminished breath sounds in the bases. Heart is regular, no murmur gallop or rub. Abdomen is soft, non distended. Extremities are grossly edematous and wrapped Objective Imaging Echo: Radiologist's impression: nterpretation Summary The left ventricle is normal in size. The ejection fraction is estimated to be 65-70%. The interventricular septum is flattened, consistent with a right ventricular pressure/volume condition. The right ventricle is severely dilated. Even though TAPSE is normal, globally RV function appears to be decreased moderately. The mitral valve mean gradient is 4.7 mmHg. There is mild mitral stenosis. There is mild mitral regurgitation. The aortic valve is moderately calcified. The aortic valve is not well visualized. The peak aortic velocity is 3.6 m/sec. The aortic valve mean gradient is 32 mmHg. The calculated aortic valve area is 1.1 cm2. sev ratio: 0.30. Overall aortic stenosis appears to be in moderate range. There is mild to moderate aortic regurgitation. Tricuspid regurgitation not well visualized.There is likely at least moderate tricuspid regurgitation best seen in subcostal window. The right ventricular systolic pressure is estimated to be at least 78 mmHg based on an estimated right atrial pressure of 15 mm Hg. There is severe pulmonary hypertension. Findings were reported to Dr. Terry Don. Chest x-ray: Radiologist's impression: IMPRESSION: Patchy bilateral atelectasis. Labs 12/16/23 04:00 12/16/23 04:00 Labs: Laboratory Results - last 24 hr 12/15/23 12/15/23 12/15/23 09:41 09:50 20:10 WBC 7.0 RBC 4.41 L Hgb 13.0 L Hct 41.4 MCV 93.9 MCH 29.5 MCHC 31.4 RDW 15.0 H Plt Count 168 Neut % (Auto) 71.4 Lymph % (Auto) 17.5 L [place] % (Auto) 8.4 Eos % (Auto) 1.6 L Baso % (Auto) 1.1 Neut # (Auto) 5000 Lymph # (Auto) 1200 [place] # (Auto) 600 Eos # (Auto) 100 Baso # (Auto) 100 ABG Sample Site ABG pH ABG pCO2 ABG pO2 ABG HCO3 ABG Total CO2 ABG O2 Saturation ABG Base Excess Terry Test Respiration Rate O2 Delivery Device FiO2 % Sodium 140 Potassium 4.3 Chloride 101 Carbon Dioxide 35 H BUN 16 Creatinine 0.58 L Estimated GFR > 60 BUN/Creatinine Ratio 27.6 H Glucose 109 Calcium 8.5 Magnesium 2.1 Total Bilirubin 0.6 AST 51 ALT 59 H Alkaline Phosphatase 70 Total Creatine Kinase 71 Troponin I 0.018 0.017 NT-Pro-B Natriuret Pep 979 H Total Protein 7.3 Albumin 3.7 Globulin 3.6 Albumin/Globulin Ratio 1.0 Lipase 38 SARS-CoV-2 (PCR) Negative Influenza A (RT-PCR) Flu a negative Influenza B (RT-PCR) Flu b negative RSV (PCR) Negative 12/15/23 12/16/23 12/16/23 23:51 03:32 04:00 WBC 7.4 RBC 4.53 Hgb 13.3 L Hct 42.9 MCV 94.5 MCH 29.4 MCHC 31.1 RDW 15.0 H Plt Count 148 L Neut % (Auto) 78.5 H Lymph % (Auto) 11.6 L [place] % (Auto) 7.5 Eos % (Auto) 2.0 Baso % (Auto) 0.4 Neut # (Auto) 5800 Lymph # (Auto) 900 L [place] # (Auto) 600 Eos # (Auto) 100 Baso # (Auto) 0 ABG Sample Site Right radial Right radial ABG pH 7.27 L* 7.29 L* ABG pCO2 99.9 H* 94.1 H* ABG pO2 64 L 75 L ABG HCO3 46 H 46 H ABG Total CO2 48 H 48 H ABG O2 Saturation 87 L 92 L ABG Base Excess 12.8 H 13.3 H Terry Test Positive Positive Respiration Rate 20 O2 Delivery Device Cannula Bipap FiO2 % 28 % 35.0 % Sodium 138 Potassium 4.3 Chloride 95 L Carbon Dioxide 35 H BUN 16 Creatinine 0.68 Estimated GFR > 60 BUN/Creatinine Ratio 23.5 H Glucose 118 H Calcium 8.3 L Magnesium Total Bilirubin AST ALT Alkaline Phosphatase Total Creatine Kinase Troponin I NT-Pro-B Natriuret Pep Total Protein Albumin Globulin Albumin/Globulin Ratio Lipase SARS-CoV-2 (PCR) Influenza A (RT-PCR) Influenza B (RT-PCR) RSV (PCR) PFSH Medical History KORTNEY (obstructive sleep apnea) Asthma Hypertension Social History household members: none Smoking Status: Former smoker alcohol intake: former Assessment & Plan Assessment & Plan narrative: 1. Acute hypoxic respiratory failure, present on admission and active. 2. Acute pulmonary edema, present on admission and improving. 3. Acute on chronic diastolic heart failure with normal EF, present on admission and improving. 4. Chronic abnormal EKG with a right bundle branch block, present on admission and stable. 5. COPD, present on admission and active. 6. Hypertension, present on admission and active. 7. Prostate cancer, present on admission and stable. 8. Severely elevated pulmonary pressures consistent with pulmonary hypertension versus pulmonary embolism, present on admission and active. The patient can not state if he was had an echo before. He does have a history of probable untreated sleep apnea. Plan: -support with O2, wean as able. -diurese with Lasix increased from 40-60 IV q.12 hours. -CT pulmonary angiogram rule out PE, the patient may have severe pulmonary hypertension. -bronchodilators and oral prednisone 40 daily for possible component of COPD. -continue usual blood pressure medications. Full resuscitation Inpatient status, anticipate a 2 midnight hospital stay. The patient requires a 2nd midnight for further investigation of his pulmonary hypertension as well as ongoing diuresis as he was residual pulmonary edema with hypoxemia and severe anasarca. Time-Based Coding :: [TOTAL MINUTES] spent with patient and on the chart (including review of chart, obtaining history, exam, reviewing outside data, placing orders, documenting exam and treatment plan, and counseling patient) on [DATE]. Quality VTE Deep Vein Thrombosis/Pulmonary Embolism Present on Admission: No
[2023-12-16] MEDS: SODIUM CHLORIDE 0.9% FLUSH 10 ML IV ×2 (09:07→21:11)
[2023-12-16] MEDS: HEPARIN 5,000 UNIT/ML VIAL 5000 UNIT SUBCUT ×2 (09:07→21:11)
--- NOTE | 2023-12-16 13:47 | DI.CT.S_ITS ---
PROCEDURE: CT ANGIO CHEST PE PROTOCOL INDICATIONS: dyspnea R/O PE TECHNIQUE: After the administration of intravenous contrast, 2 mm thick sections acquired from the pulmonary apices to the posterior costophrenic angles. 3-dimensional maximum intensity projection (MIP) coronal and sagittal reformats were then acquired through the thorax. For radiation dose reduction, the following was used: automated exposure control, adjustment of mA and/or kV according to patient size. COMPARISON: [facility], CT, CT ANGIO CHEST PE PROTOCOL, 05/07/2018, 3:28. FINDINGS: Image quality: Diagnostic. Pulmonary arteries: Pulmonary arteries are normal in size, and demonstrate no intraluminal filling defects to suggest central pulmonary embolism. Lower Neck: No enlarged lymph nodes. Thyroid: No thyroid nodules which require sonographic follow up, per consensus guidelines. Axillae: No enlarged lymph nodes. Chest Wall: Intramuscular lipoma is incidentally noted in the left subscapularis muscle. Bones: Unremarkable. Lungs and Pleura: No pneumothorax or pleural effusions. Areas of bilateral subsegmental band like atelectasis. Stable 5 mm subpleural nodule in the peripheral left upper lobe (5/86). Stable right middle lobe 6 mm subpleural nodule (5/207). No consolidation or suspicious nodules. Heart: Heart size is moderately enlarged. No pericardial effusion. Thoracic Vessels: No aortic aneurysm. Mediastinum and Suzy: No enlarged lymph nodes. Esophagus: No wall thickening. No hiatal hernia. Upper Abdomen: Status post cholecystectomy. Bilateral renal cysts. Colonic diverticulosis. IMPRESSION: 1. No acute pulmonary embolus. No acute abnormality is seen in the chest. 2. Stable bilateral pulmonary nodules are considered benign. 3. Moderate cardiomegaly. Approved by: Arnold England M.D. on 12/16/2023 at 17:11
[2023-12-16] MEDS: ATORVASTATIN 20 MG TABLET 80 MG PO (15:01)
--- NOTE | 2023-12-16 16:05 | CM.DANOTE ---
DCP Assessment Note Pt is a 78yo M here with CHF and acute resp failure. PCP Jorge A Ho [facility] and [facility] reviewed EMR. Pt needed CPAP overnight, echo pending. Per hospitalist in morning rounds, pt eager to dc home, FIDE unknown, another day or two likely. Per RN, pt splits time between and [place], but primarily lives alone. CLERICAL COORDINATOR met with pt briefly in room. 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 Reports indep at baseline, denies any CM needs at this time. reports has a ride. P: anticipate home when medically stable. No identified barriers to safe dc home identified at this time. CM team will continue to follow as needed JESSICA Turner Discharge Planning/Care Management CM Discharge Assessment Start: 12/16/23 16:04 Freq: Status: Active Protocol: Document 12/16/23 16:04 (Rec: 12/16/23 16:05 [id number]) Discharge Planning Assessment Assigned Calibration Tester JESSICA Rojo DPOA/Assigned Designee Name Amee spouse Contact Information [phone] Advance Directives? No History Provided By Patient,Medical Record Prior Living Arrangements Apartment/Condo Household Members none Type of transporation used prior to Drives own vehicle admit Independent with ADL's Yes Is patient alert and oriented? Yes Discharge Plan Home Referrals Initiated None needed Whiteboard Updated in Patient Room with Yes name and ext. # of Calibration Tester Review Status In Process Please Provide Date Initial DC 12/16/23 Assessment Was Performed Next Review Type Continued Stay Review
[2023-12-16] MEDS: FUROSEMIDE 40 MG/4 ML VIAL 60 MG IV (16:30)
--- NOTE | 2023-12-16 20:39 | RT ---
Patient is still refusing BIPAP. Stated never again when asked to wear it. RN at bedside and witnessed.
[2023-12-17] VITALS (9 sets, daily range): BP systolic 123–152; BP diastolic 62–88; PULSE 67–88; RESP 16–20; TEMP 35.9–36.6; O2SAT 88–94
[2023-12-17 04:21] LABS: Add Manual Diff / Slide Review NO; Basophils Absolute Auto 100 /uL (0-100); Basophils Percent Auto 1.7 % (0-2); Eosinophils Absolute Auto 200 /uL (0-450); Eosinophils Percent Auto 2.4 % (2-4); Hemoglobin 13.6 g/dL (13.5-17.5); Lymphocytes Absolute Auto 800 /uL (1100-4500); Lymphocytes Percent Auto 12.1 % (25-40); Mean Corpuscular HGB Conc 31.6 % (30-36); Mean Corpuscular Hemoglobin 29.5 PG (26-34); Mean Corpuscular Volume 93.3 fL (80-100); Monocytes Absolute Auto 600 /uL (0-900); Monocytes Percent Auto 8.9 % (3-14); Neutrophils Absolute Auto 4900 /uL (1500-7000); Neutrophils Percent Auto 74.9 % (50-75); Platelet Count 149 X10^3/uL (150-400); Red Blood Cell Count 4.62 X10^6/uL (4.5-5.9); Red Cell Distribution Width 14.6 % (11.6-14.8); White Blood Cell Count 6.6 X10^3/uL (4.5-11.0)
[2023-12-17 04:35] LABS: BUN Creatinine Ratio 28.6 (6-22); Blood Urea Nitrogen 20 mg/dL (9-20); Calcium 8.4 mg/dL (8.4-10.2); Chloride 93 mmol/L (98-107); Estimated Glomerular Filt Rate > 60 mL/min (>60); Glucose 117 mg/dL (80-110); HEMOLYSIS < 15 (0-50); Potassium 3.8 mmol/L (3.4-5.1); Sodium 137 mmol/L (137-145)
[2023-12-17 04:43] LABS: Carbon Dioxide 41 mmol/L (22-32)
[2023-12-17] MEDS: FUROSEMIDE 40 MG/4 ML VIAL 60 MG IV ×2 (07:38→16:33)
[2023-12-17] MEDS: HEPARIN 5,000 UNIT/ML VIAL 5000 UNIT SUBCUT ×2 (09:05→20:34)
[2023-12-17] MEDS: SODIUM CHLORIDE 0.9% FLUSH 10 ML IV ×2 (09:05→21:34)
--- NOTE | 2023-12-17 15:33 | PM.PN.1 ---
Subjective Subjective Interval history: S: He is doing better today. Less leg edema. Less dyspnea. His pCO2 was 99 (compensated). Exam Vital Signs (past 8 hours): - 12/17/23 08:00 12/17/23 09:35 12/17/23 10:31 Temperature 97.0 F L Pulse Rate 83 Respiratory Rate 16 Blood Pressure 123/62 Pulse Oximetry 94 88 L 92 Oxygen Delivery Method Room Air Nasal Cannula Oxygen Flow Rate 2 1 12/17/23 11:00 Temperature 97.8 F Pulse Rate 84 Respiratory Rate 18 Blood Pressure 152/83 H Pulse Oximetry 93 Oxygen Delivery Method Oxygen Flow Rate 2 Fraction of Inspired Oxygen 35 SaO2/FiO2 Ratio 258 Oxygen Delivery Method Nasal Cannula Oxygen Flow Rate 2 Narrative Exam Narrative: NAD, fluent speech. Very talkatibve , on O2 NC Lungs clear Heart regular Abdomen distended Gross edema, legs wrapped. Objective Imaging Chest CTA:: Radiologist's impression: 1. No acute pulmonary embolus. No acute abnormality is seen in the chest. 2. Stable bilateral pulmonary nodules are considered benign. 3. Moderate cardiomegaly. Echo: Radiologist's impression: The left ventricle is normal in size. The ejection fraction is estimated to be 65-70%. The interventricular septum is flattened, consistent with a right ventricular pressure/volume condition. The right ventricle is severely dilated. Even though TAPSE is normal, globally RV function appears to be decreased moderately. The mitral valve mean gradient is 4.7 mmHg. There is mild mitral stenosis. There is mild mitral regurgitation. The aortic valve is moderately calcified. The aortic valve is not well visualized. The peak aortic velocity is 3.6 m/sec. The aortic valve mean gradient is 32 mmHg. The calculated aortic valve area is 1.1 cm2. sev ratio: 0.30. Overall aortic stenosis appears to be in moderate range. There is mild to moderate aortic regurgitation. Tricuspid regurgitation not well visualized.There is likely at least moderate tricuspid regurgitation best seen in subcostal window. The right ventricular systolic pressure is estimated to be at least 78 mmHg based on an estimated right atrial pressure of 15 mm Hg. There is severe pulmonary hypertension. Labs 12/17/23 04:01 12/17/23 04:01 Labs: Laboratory Results - last 24 hr 12/17/23 04:01 WBC 6.6 RBC 4.62 Hgb 13.6 Hct 43.0 MCV 93.3 MCH 29.5 MCHC 31.6 RDW 14.6 Plt Count 149 L Neut % (Auto) 74.9 Lymph % (Auto) 12.1 L [place] % (Auto) 8.9 Eos % (Auto) 2.4 Baso % (Auto) 1.7 Neut # (Auto) 4900 Lymph # (Auto) 800 L [place] # (Auto) 600 Eos # (Auto) 200 Baso # (Auto) 100 Sodium 137 Potassium 3.8 Chloride 93 L Carbon Dioxide 41 H* BUN 20 Creatinine 0.70 Estimated GFR > 60 BUN/Creatinine Ratio 28.6 H Glucose 117 H Calcium 8.4 PFSH Medical History KORTNEY (obstructive sleep apnea) Asthma Hypertension Social History household members: none Smoking Status: Former smoker alcohol intake: former Assessment & Plan Assessment & Plan narrative: 1. Acute hypoxic respiratory failure, present on admission and active. 2. Acute pulmonary edema, present on admission and improving. 3. Acute on chronic diastolic heart failure with normal EF, present on admission and improving. 4. Chronic abnormal EKG with a right bundle branch block, present on admission and stable. 5. COPD, present on admission and active. 6. Hypertension, present on admission and active. 7. Prostate cancer, present on admission and stable. 8. Severely elevated pulmonary pressures consistent with pulmonary hypertension versus pulmonary embolism, present on admission and active. The patient can not state if he was had an echo before. He does have a history of probable untreated sleep apnea. 9. Moderate aortic stenosis, present on admission and active. Plan: -support with O2, wean as able. He was on 2 L but desaturated quickly yesterday when he came off of oxygen. Has not been on oxygen at home before but we will likely have to discharge with oxygen. -diurese with Lasix 60 IV q.12 hours. -CT pulmonary angiogram ruled out PE, the patient may have severe pulmonary hypertension. -bronchodilators and oral prednisone 40 daily for possible component of COPD. -continue usual blood pressure medications. -he probably as untreated sleep apnea as well as pulmonary hypertension which appears to be severe. Full resuscitation FIDE: 12/18 Time-Based Coding :: [TOTAL MINUTES] spent with patient and on the chart (including review of chart, obtaining history, exam, reviewing outside data, placing orders, documenting exam and treatment plan, and counseling patient) on [DATE]. Quality VTE Deep Vein Thrombosis/Pulmonary Embolism Present on Admission: No
--- NOTE | 2023-12-17 16:06 | CM.DPNOTE ---
DCP Note Per hospitalist, echo found severe pulmonary hypertension. Plan is to wean O2, rule out PE, and likely dc home with home oxygen need.? Per RN, pt now on 1ltr, eager to dc home. Likely dc tomorrow, no CM needs likely/ P: anticipate home when medically stable. No identified barriers to safe dc home identified at this time. CM team will continue to follow as needed JESSICA Turner
[2023-12-17] MEDS: ATORVASTATIN 20 MG TABLET 80 MG PO (20:30)
[2023-12-18] VITALS (7 sets, daily range): BP systolic 126–151; BP diastolic 63–82; PULSE 68–86; RESP 16–19; TEMP 35.7–36.6; O2SAT 90–97
[2023-12-18 04:27] LABS: Add Manual Diff / Slide Review NO; Basophils Absolute Auto 100 /uL (0-100); Basophils Percent Auto 0.9 % (0-2); Eosinophils Absolute Auto 200 /uL (0-450); Eosinophils Percent Auto 3.6 % (2-4); Hematocrit 44.9 % (41-53); Hemoglobin 14.1 g/dL (13.5-17.5); Lymphocytes Absolute Auto 900 /uL (1100-4500); Lymphocytes Percent Auto 14.5 % (25-40); Mean Corpuscular HGB Conc 31.4 % (30-36); Mean Corpuscular Hemoglobin 29.4 PG (26-34); Mean Corpuscular Volume 93.7 fL (80-100); Monocytes Absolute Auto 500 /uL (0-900); Monocytes Percent Auto 7.9 % (3-14); Neutrophils Absolute Auto 4400 /uL (1500-7000); Neutrophils Percent Auto 73.1 % (50-75); Platelet Count 139 X10^3/uL (150-400); Red Cell Distribution Width 15.1 % (11.6-14.8); White Blood Cell Count 6.1 X10^3/uL (4.5-11.0)
[2023-12-18 04:51] LABS: BUN Creatinine Ratio 21.1 (6-22); Blood Urea Nitrogen 16 mg/dL (9-20); Calcium 8.6 mg/dL (8.4-10.2); Chloride 90 mmol/L (98-107); Estimated Glomerular Filt Rate > 60 mL/min (>60); Glucose 120 mg/dL (80-110); HEMOLYSIS < 15 (0-50); Sodium 137 mmol/L (137-145)
[2023-12-18 05:09] LABS: Carbon Dioxide 42 mmol/L (22-32)
[2023-12-18] MEDS: FUROSEMIDE 40 MG/4 ML VIAL 60 MG IV ×2 (07:01→21:17)
--- NOTE | 2023-12-18 07:43 | P.PN_ITS ---
Subjective Subjective Interval history: Summary: He was admitted with volume overload and CHF. He was started on diuretics. CPAP overnight, he was his chronically part of the time. Echo revealed probable chronic pulmonary hypertension. S: He was improving with diuresis. He was on 1 L of oxygen and saturations are 90% with desats to 87% on room air occasionally. He was never been on home oxygen before. He was improving with diuresis. He was aortic stenosis, pulmonary hypertension, and untreated sleep apnea as well as a possible component of obesity hypoventilation syndrome. Exam Vital Signs (past 8 hours): - 12/18/23 04:00 Temperature 97.9 F Pulse Rate 80 Respiratory Rate 18 Blood Pressure 151/82 H Pulse Oximetry 91 Oxygen Flow Rate 1 Fraction of Inspired Oxygen 35 SaO2/FiO2 Ratio 258 Oxygen Delivery Method Nasal Cannula Oxygen Flow Rate 1 Narrative Exam Narrative: NAD, alert and oriented. Fluent speech. Lungs are clear, normal rate and effort. Scattered basilar rales. Heart is regular, systolic murmur and no gallop or rub. Abdomen is soft, non distended. Extremities are gross edema, and they are wrapped. Objective Imaging Multiple studies:: Radiologist's impression: Chest CTA:: Radiologist's impression: 1. No acute pulmonary embolus. No acute abnormality is seen in the chest. 2. Stable bilateral pulmonary nodules are considered benign. 3. Moderate cardiomegaly. Echo: Radiologist's impression: The left ventricle is normal in size. The ejection fraction is estimated to be 65-70%. The interventricular septum is flattened, consistent with a right ventricular pressure/volume condition. The right ventricle is severely dilated. Even though TAPSE is normal, globally RV function appears to be decreased moderately. The mitral valve mean gradient is 4.7 mmHg. There is mild mitral stenosis. There is mild mitral regurgitation. The aortic valve is moderately calcified. The aortic valve is not well visualized. The peak aortic velocity is 3.6 m/sec. The aortic valve mean gradient is 32 mmHg. The calculated aortic valve area is 1.1 cm2. sev ratio: 0.30. Overall aortic stenosis appears to be in moderate range. There is mild to moderate aortic regurgitation. Tricuspid regurgitation not well visualized.There is likely at least moderate tricuspid regurgitation best seen in subcostal window. The right ventricular systolic pressure is estimated to be at least 78 mmHg based on an estimated right atrial pressure of 15 mm Hg. There is severe pulmonary hypertension. Labs 12/18/23 04:01 12/18/23 04:01 Labs: Laboratory Results - last 24 hr 12/18/23 04:01 WBC 6.1 RBC 4.80 Hgb 14.1 Hct 44.9 MCV 93.7 MCH 29.4 MCHC 31.4 RDW 15.1 H Plt Count 139 L Neut % (Auto) 73.1 Lymph % (Auto) 14.5 L [place] % (Auto) 7.9 Eos % (Auto) 3.6 Baso % (Auto) 0.9 Neut # (Auto) 4400 Lymph # (Auto) 900 L [place] # (Auto) 500 Eos # (Auto) 200 Baso # (Auto) 100 Sodium 137 Potassium 4.0 Chloride 90 L Carbon Dioxide 42 H* BUN 16 Creatinine 0.76 Estimated GFR > 60 BUN/Creatinine Ratio 21.1 Glucose 120 H Calcium 8.6 PFSH Medical History KORTNEY (obstructive sleep apnea) Asthma Hypertension Social History household members: none Smoking Status: Former smoker alcohol intake: former Assessment & Plan Assessment & Plan narrative: 1. Acute hypoxic respiratory failure, present on admission and active. 2. Acute pulmonary edema, present on admission and improving. 3. Acute on chronic diastolic heart failure with normal EF, present on admission and improving. 4. Chronic abnormal EKG with a right bundle branch block, present on admission and stable. 5. COPD, present on admission and active. 6. Hypertension, present on admission and active. 7. Prostate cancer, present on admission and stable. 8. Severely elevated pulmonary pressures consistent with pulmonary hypertension versus pulmonary embolism, present on admission and active. The patient can not state if he was had an echo before. He does have a history of probable untreated sleep apnea. 9. Moderate aortic stenosis, present on admission and active. Plan: -support with O2, wean as able. He was on 2 L but desaturated quickly yesterday when he came off of oxygen. Has not been on oxygen at home before but we will likely have to discharge with oxygen. -diurese with Lasix 60 IV q.12 hours. Will increase to Q8 (he is net 1.3 liters out a day. -CT pulmonary angiogram ruled out PE, the patient may have severe pulmonary hypertension. -bronchodilators and oral prednisone 40 daily for possible component of COPD. -continue usual blood pressure medications. -he probably as untreated sleep apnea as well as pulmonary hypertension which appears to be severe. Full resuscitation FIDE: 12/18 or 12/19 when he is mostly off O2 at rest. Time-Based Coding :: [TOTAL MINUTES] spent with patient and on the chart (including review of chart, obtaining history, exam, reviewing outside data, placing orders, documenting exam and treatment plan, and counseling patient) on [DATE]. Quality VTE Deep Vein Thrombosis/Pulmonary Embolism Present on Admission: No
[2023-12-18] MEDS: HEPARIN 5,000 UNIT/ML VIAL 5000 UNIT SUBCUT ×2 (08:36→21:13)
[2023-12-18] MEDS: SODIUM CHLORIDE 0.9% FLUSH 10 ML IV ×2 (08:37→21:18)
[2023-12-18] MEDS: ATORVASTATIN 20 MG TABLET 80 MG PO (21:12)
[2023-12-19 06:19] LABS: BUN Creatinine Ratio 23.2 (6-22); Blood Urea Nitrogen 16 mg/dL (9-20); Calcium 8.9 mg/dL (8.4-10.2); Chloride 88 mmol/L (98-107); Estimated Glomerular Filt Rate > 60 mL/min (>60); Glucose 112 mg/dL (80-110); HEMOLYSIS < 15 (0-50); Magnesium 2.3 mg/dL (1.6-2.3); Potassium 3.6 mmol/L (3.4-5.1); Sodium 138 mmol/L (137-145)
[2023-12-19] MEDS: FUROSEMIDE 40 MG/4 ML VIAL 60 MG IV (06:28)
[2023-12-19 06:29] LABS: Carbon Dioxide 40 mmol/L (22-32)
[2023-12-19 08:13] VITALS: BP 153/80; PULSE 71; RESP 19; TEMP 36.1; O2SAT 97
[2023-12-19] MEDS: SODIUM CHLORIDE 0.9% FLUSH 10 ML IV (09:00)
[2023-12-19] MEDS: HEPARIN 5,000 UNIT/ML VIAL 5000 UNIT SUBCUT (09:00)
[2023-12-19 09:19] VITALS: O2SAT 91
--- NOTE | 2023-12-19 12:41 | CM.DPC ---
DCP Continued: Reviewed EMR and team rounds for pt?s medical status. Per rounds, pt has been refusing use of CPAP at home and BiPAP at night in hospital. Possible Home O2 eval before discharge placed. No other discharge needs identified. Plan: Discharge orders in, pt to discharge home. CM Team will continue to follow for coordination of discharge plans. MOLLY Brennan
[2023-12-19 12:53] VITALS: O2SAT 96
--- NOTE | 2023-12-19 14:31 | PM.DS.1 ---
History of Present Illness History of Present Illness Date Patient Seen: 12/19/23 Time Patient Seen: 09:35 Date of Onset of Symptoms: 12/15/23 Chief complaint: sent from wound care for breathing treatment Narrative: Patient is a 78-year-old male with past medical history of COPD comes into the ED for evaluation of low oxygen. [facility] care for his lower extremity when they states that they noticed that his pulse ox was low. States that it was in the low 80s. He adamantly denies any chest pain or shortness of breath. Does not require supplemental oxygen at baseline. Had arrival patient pulse ox low 80s was placed on 6 L nasal cannula. No trauma no falls. Patient states that he has noticed increased swelling to his legs. He was not been taking his water pills for about 2 weeks. He was had progressive leg edema and dyspnea with movement. He denies any chest pain. He also was drinking pickle juice yesterday for a hand cramp. He denies any recent smoking or alcohol intake. He does not have a specific reason for not taking his water pill. In the ED he was found to have pulmonary edema. He also notes that he was taking inhalations of his albuterol recently with no real improvement of his breathing. He also did have some degree of orthopnea. He denies any nausea, vomiting or diaphoresis. 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 He lives alone. He has been attending the [facility] in [place] for about 2 weeks for wounds which are wrapped. This is where he was discovered to be hypoxemic by their oximeter reading. He was sent to the emergency department. Discharge Providers Provider Date of admission: 12/16/23 13:44 Discharge Date: 12/19/23 Primary care physician: Stevan Howard MD Discharge provider: Kendell Briceno MD Summary Hospital Course Discharge Diagnosis: 1. Acute hypoxic respiratory failure, present on admission and active. 2. Acute pulmonary edema, present on admission and improving. 3. Acute on chronic diastolic heart failure with normal EF, present on admission and improving. 4. Chronic abnormal EKG with a right bundle branch block, present on admission and stable. 5. COPD, present on admission and active. 6. Hypertension, present on admission and active. 7. Prostate cancer, present on admission and stable. 8. Severely elevated pulmonary pressures consistent with pulmonary hypertension versus pulmonary embolism, present on admission and active. 9. Sleep apnea, untreated. 10. Moderate aortic stenosis, present on admission and active. Hospital Course: The patient was admitted and underwent intravenous furosemide-induced diuresis of a net 8.[address] angiogram ruled out pulmonary embolism, though suspect to have severe pulmonary hypertension. During his hospital stay he was given oral prednisone and bronchodilators for possible component of COPD. He was feeling significantly better with resolution of resting hypoxemia with oxygen saturation of 95% at the time of discharge, decreasing to 89% with exertion. He was not felt to be a candidate for home oxygen per coverage guidelines. It is noted that he has significant untreated sleep apnea, with likely underlying obesity hypoventilation syndrome, and treatment of sleep apnea is strongly encouraged through [facility]. He has expressed frustration in getting the necessary equipment to do that and he will discuss this further in outpatient follow-up within 1 week of discharge. Status at Discharge Cognitive/behavioral status at discharge: oriented Functional status at discharge: independent ambulation Overall status at discharge: patient is back to baseline Time Spent with Patient Time spent: Greater than 30 minutes Exam Vital Signs (past 8 hours): - 12/19/23 08:13 12/19/23 09:19 12/19/23 09:30 Temperature 96.9 F L Pulse Rate 71 Respiratory Rate 19 Blood Pressure 153/80 H Pulse Oximetry 97 91 Oxygen Delivery Method Room Air Oxygen Flow Rate 1 0 12/19/23 12:53 Temperature Pulse Rate Respiratory Rate Blood Pressure Pulse Oximetry 96 Oxygen Delivery Method Room Air Oxygen Flow Rate Fraction of Inspired Oxygen 28 SaO2/FiO2 Ratio 321 Oxygen Delivery Method Room Air Oxygen Flow Rate 0 Narrative Exam Narrative: NAD, alert and oriented. Fluent speech. Lungs are clear, normal rate and effort. Scattered basilar rales. Heart is regular, systolic murmur and no gallop or rub. Abdomen is soft, non distended. Extremities with 3+ edema, wrapped. Objective Imaging *: Radiologist's impression: Chest x-ray 12/15/2023: Patchy bilateral atelectasis. CT angiogram chest 12/16/2023: 1. No acute pulmonary embolus. No acute abnormality is seen in the chest. 2. Stable bilateral pulmonary nodules are considered benign. 3. Moderate cardiomegaly. Labs 12/18/23 04:01 12/19/23 04:10 Labs: Laboratory Results - last 24 hr 12/19/23 04:10 Sodium 138 Potassium 3.6 Chloride 88 L Carbon Dioxide 40 H* BUN 16 Creatinine 0.69 Estimated GFR > 60 BUN/Creatinine Ratio 23.2 H Glucose 112 H Calcium 8.9 Magnesium 2.3 PFSH Medical History KORTNEY (obstructive sleep apnea) Asthma Hypertension Social History household members: none Smoking Status: Former smoker alcohol intake: former Discharge Plan Discharge Plan Patient Disposition: Home Provider Discharge Comment: followup with Nilo FONTANEZ within 1 week, start Bipap per PCP/[facility] Discharge orders & Medications Prescriptions: New torsemide 20 mg tablet 20 mg PO BID Qty: 60 0RF metolazone 5 mg tablet 5 mg PO DAILY Qty: 30 0RF Rx Instructions: Give 30 minutes before first dose of torsemide Continued lisinopril 20 MG tablet 20 mg PO DAILY Qty: 0 albuterol sulfate [Ventolin HFA] 90 MCG/PUFF HFA aerosol inhaler 2 puff INH Q4HP PRN (Reason: Shortness Of Breath) atorvastatin 80 mg tablet 80 mg PO DAILY Nubeqa 300 mg tablet 600 mg PO BID Follow up/Referrals: Stevan Howard MD [Primary Care Provider] - Diet/Activity/Treatments Diet: Low-sodium Visit Report/Discharge Packet Instructions: Torsemide, Metolazone (By mouth) Stand Alone Forms: Patient Portal/API, Congestive Heart Failure Discharge Data Primary Care Provider: Stevan Howard Quality VTE Deep Vein Thrombosis/Pulmonary Embolism Present on Admission: No MIPS - Admit I confirm the patient?s Advance Care Plan is present, Code status is documented, Surrogate decision maker is in patient?s record [If Yes, STOP here]: Yes MIPS - Meds 'Current medications' to include all prescriptions, [id number] products, herbals, cannabis/cannabidiol products, and vitamin/mineral/dietary (nutritional) supplements. I have utilized all available resources to obtain, update, or review the patient?s current medications. [If Yes, STOP here]: Yes MIPS - DC The patient has a history of heart transplant or Left Ventricular Assist Device (LVAD). If yes, STOP here.: No The patient has current or prior documentation of left ventricular ejection fraction (LVEF) less than or equal to 40%, or moderate or severely depressed left ventricular systolic function.: No A. The patient was prescribed or already taking an Angiotensin-Converting Enzyme (MILENA) Inhibitor, or Angiotensin Receptor Derrick (ARB).: Yes B. The patient was prescribed or already taking a beta-derrick. [If Yes to Both A & B, STOP here]: No Patient not prescribed/taking MILENA or ARB, no reason given.: No Patient not prescribed/taking beta-derrcik, no reason given.: No PROFEE Charge Codes Discharge inpatient/observation: [id number]
--- NOTE | 2023-12-19 15:49 | PC.NURSE ---
Pt discharged home at 1533, escorted off floor in wheelchair accompanied by hospital staff. IV removed, discharge teaching completed including new medications, worsening symptoms and follow up appointments. Questions answered and concerns addressed. 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
== END 2023-12-19 15:45 | disposition home or self-care (01) | DRG 291 ==
LOC: ED 09:57 → AC 11:49
PROVIDERS: Internal Medicine; Admitting Provider Hospitalist; Emergency Provider Student in an Organized Health Care Education/Training Program; PCP Internal Medicine Endocrinology, Diabetes & Metabolism; Visit Provider Hospitalist
DX: I11.0 Hypertensive heart disease with heart failure (principal); I50.33 Acute on chronic diastolic (congestive) heart failure; J96.01 Acute respiratory failure with hypoxia; E66.2 Morbid (severe) obesity with alveolar hypoventilation; Z68.41 Body mass index [BMI] 40.0-44.9, adult; J44.9 Chronic obstructive pulmonary disease, unspecified; I45.10 Unspecified right bundle-branch block; I35.0 Nonrheumatic aortic (valve) stenosis; I27.20 Pulmonary hypertension, unspecified; C61 Malignant neoplasm of prostate; Z87.891 Personal history of nicotine dependence
CPT/HCPCS: 0241U; 36415; 36592; 36600; 71045; 71275; 80048; 80053; 82550; 82805; 82962; 83690; 83735; 83880; 84484; 85025; 93005; 94618; 94640; 94660; 94760; 94762; 96365; 96375; 99285; G0378; C8929; J1644; J1940; J3475; J7613; Q9957; Q9967

== ENCOUNTER → 2023-12-22 08:52 | Outpatient (CLI) | payer OTHER, MEDICARE, SELFPAY ==
[2023-12-15 11:56] VITALS: BMI 40.4
[2023-12-16 03:41] VITALS: PULSE 69; RESP 14; O2SAT 97
== END ==
PROVIDERS: PCP Internal Medicine Endocrinology, Diabetes & Metabolism; Visit Provider Surgery
DX: I89.0 Lymphedema, not elsewhere classified (principal)
CPT/HCPCS: 99212; 99213

== ENCOUNTER → 2023-12-25 08:51 | Outpatient (CLI) | payer OTHER, MEDICARE, SELFPAY ==
[2023-12-15 11:56] VITALS: BMI 40.4
[2023-12-16 03:41] VITALS: PULSE 69; RESP 14; O2SAT 97
== END ==
PROVIDERS: PCP Internal Medicine Endocrinology, Diabetes & Metabolism; Visit Provider Surgery
DX: R60.0 Localized edema (principal)
CPT/HCPCS: 29581

== ENCOUNTER → 2024-01-08 10:41 | Outpatient (CLI) | payer OTHER, MEDICARE, SELFPAY ==
[2023-12-15 11:56] VITALS: BMI 40.4
[2023-12-16 03:41] VITALS: PULSE 69; RESP 14; O2SAT 97
== END ==
PROVIDERS: PCP Internal Medicine Endocrinology, Diabetes & Metabolism; Visit Provider Surgery
DX: I89.0 Lymphedema, not elsewhere classified (principal); I10 Essential (primary) hypertension
CPT/HCPCS: 99211; 99213

== ENCOUNTER 2024-03-09 21:36 | Inpatient (IN) | payer OTHER, SELFPAY ==
[2023-12-15 11:56] VITALS: BMI 40.4
[2023-12-16 03:41] VITALS: PULSE 69; RESP 14; O2SAT 97
[2024-03-09] VITALS (8 sets, daily range): BP systolic 132–163; BP diastolic 63–74; PULSE 85–101; RESP 10–20; TEMP 36.2; O2SAT 80–93; BMI 39.7
--- NOTE | 2024-03-09 22:10 | EKG_ITS ---
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
--- NOTE | 2024-03-09 22:11 | ED.SOB ---
HPI - SOB/Dyspnea General Chief Complaint: Shortness of Breath/Dyspnea Stated Complaint: difficulty breathing Time Seen by Provider: 03/09/24 21:39 Source: patient Mode of arrival: Ambulatory Limitations: no limitations History of Present Illness HPI Narrative: 78-year-old male with history of COPD, congestive heart failure, bilateral lower extremity lymphedema, prostate cancer on Lupron presents by private vehicle from home for 2 3 days of gradually worsening shortness of breath and productive cough. Patient states that he had a very stressful work event 6 days ago and since then has not taken his water pills. Patient found to be saturating in the 70s on room air. He was taken quickly to ER bed and placed on supplemental nasal cannula. Related Data Home Medications Medication Instructions Recorded Confirmed lisinopril 20 mg tablet 10 mg PO DAILY ##0 03/26/16 03/10/24 albuterol sulfate 90 mcg/actuation 2 puff INH Q4HP PRN Shortness Of 06/16/18 12/15/23 aerosol inhaler (Ventolin HFA) Breath atorvastatin 80 mg tablet 80 mg PO DAILY 12/15/23 03/10/24 darolutamide 300 mg tablet (Nubeqa) 600 mg PO BID 12/15/23 12/15/23 lisinopril 10 mg tablet 10 mg PO DAILY 03/10/24 03/10/24 spironolactone 25 mg tablet 25 mg PO DAILY 03/10/24 03/10/24 tamsulosin 0.4 mg capsule mg PO DAILY 03/10/24 torsemide 10 mg tablet 10 mg PO DAILY 03/10/24 03/10/24 Previous Rx's Medication Instructions Recorded metolazone 5 mg tablet 5 mg PO DAILY #30 tabs 12/19/23 torsemide 20 mg tablet 20 mg PO BID #60 tabs 12/19/23 Allergies Allergy/AdvReac Type Severity Reaction Status Date / Time No Known Drug Allergies Allergy Verified 04/01/18 11:02 Patient History Medical History (Updated 03/09/24 @ 23:33 by Nancie Romero MD) KORTNEY (obstructive sleep apnea) Asthma Hypertension Social History household members: none Smoking Status: Former smoker alcohol intake: former Smoking Status: Former smoker alcohol intake frequency: 0-2 drinks per day Exam Initial Vital Signs Initial Vital Signs: Vital Signs Temperature 97.1 F L 03/09/24 21:41 Pulse Rate 101 H 03/09/24 21:41 Respiratory Rate 20 03/09/24 21:41 Blood Pressure 139/71 03/09/24 21:41 Pulse Oximetry 89 L 03/09/24 21:41 Oxygen Delivery Method Room Air 03/09/24 21:41 Const: Awake, alert, no acute distress Cardiac: Tachycardia, regular rhythm RESP: On nasal cannula, speaking in complete sentences, inspiratory crackles all lung montano MSK: compression stocking on BLE to knees, full range of motion Skin: Warm, Dry, intact, no rashes Neuro: AO x3, CN II-XII grossly intact, moves all extremities Course Orders Ordered: ED Orders 03/09/24 22:04 BNP [NT-proBNP (BNP-Adult 18+)] Stat CBC Auto Diff [Complete Blood Count AUTO DIFF] Stat CMP [Comprehensive Metabolic Panel] Stat MAG [Magnesium] Stat Troponin & CK Cardiac Panel Stat 03/09/24 22:10 Chest [XR chest 1V] Stat Respiratory Panel (Film Array) Stat EKG-12 Lead Stat Discontinued Medications Furosemide (Furosemide 40 Mg/4 Ml Vial) 40 mg IV NOW ONE Stop: 03/09/24 22:51 Last Admin: 03/09/24 23:14 Dose: 40 mg Documented By: STEFFANY Ceftriaxone Sodium 2,000 mg/ (Sodium Chloride) 100 mls @ 200 mls/hr IV NOW ONE Stop: 03/09/24 22:50 Last Infusion: 03/09/24 23:47 Dose: Infused Documented By: Admin: 03/09/24 23:14 Dose: 200 mls/hr Documented By: STEFFANY Azithromycin 500 mg/ Dextrose 250 mls @ 250 mls/hr IV NOW ONE Stop: 03/09/24 22:50 Last Infusion: 03/10/24 01:28 Dose: Infused Documented By: Admin: 03/09/24 23:47 Dose: 250 mls/hr Documented By: STEFFANY Vital Signs Vital signs: Vital Signs - 8 hr 03/09/24 21:41 03/09/24 21:53 03/09/24 21:57 Temperature 97.1 F L Pulse Rate 101 H Respiratory Rate 20 Blood Pressure 139/71 143/67 H Pulse Oximetry 89 L 82 L Oxygen Delivery Method Room Air Room Air Oxygen Flow Rate 03/09/24 21:57 03/09/24 22:00 03/09/24 22:00 Temperature Pulse Rate 93 H 86 Respiratory Rate Blood Pressure 132/66 Pulse Oximetry 80 L 92 Oxygen Delivery Method Room Air Nasal Cannula Oxygen Flow Rate 6 03/09/24 22:30 03/09/24 22:30 03/09/24 23:00 Temperature Pulse Rate 87 85 Respiratory Rate 10 L 13 Blood Pressure 148/66 H Pulse Oximetry 90 L 93 Oxygen Delivery Method Nasal Cannula Oxygen Flow Rate 6 03/09/24 23:00 03/09/24 23:30 03/09/24 23:31 Temperature Pulse Rate 86 Respiratory Rate 16 Blood Pressure 132/63 163/74 H Pulse Oximetry 92 Oxygen Delivery Method Nasal Cannula Oxygen Flow Rate 6 03/09/24 23:31 03/10/24 00:00 03/10/24 00:00 Temperature Pulse Rate 90 86 Respiratory Rate 20 18 Blood Pressure 165/79 H Pulse Oximetry 91 94 Oxygen Delivery Method Nasal Cannula Nasal Cannula Oxygen Flow Rate 6 6 03/10/24 00:30 03/10/24 00:30 03/10/24 01:00 Temperature Pulse Rate 85 Respiratory Rate 17 Blood Pressure 134/65 135/68 Pulse Oximetry 93 Oxygen Delivery Method Nasal Cannula Oxygen Flow Rate 6 03/10/24 01:29 03/10/24 01:30 03/10/24 01:30 Temperature Pulse Rate 92 H 92 H Respiratory Rate 20 19 Blood Pressure 187/84 H Pulse Oximetry 93 94 Oxygen Delivery Method Oxygen Flow Rate 03/10/24 02:06 03/10/24 02:12 03/10/24 02:12 Temperature Pulse Rate 53 L 89 Respiratory Rate Blood Pressure 137/63 Pulse Oximetry 95 93 Oxygen Delivery Method Nasal Cannula Oxygen Flow Rate 6 03/10/24 02:30 03/10/24 02:30 03/10/24 03:00 Temperature Pulse Rate 85 Respiratory Rate 24 Blood Pressure 136/65 134/64 Pulse Oximetry 92 Oxygen Delivery Method Nasal Cannula Oxygen Flow Rate 6 03/10/24 03:00 Temperature Pulse Rate 81 Respiratory Rate 16 Blood Pressure Pulse Oximetry 94 Oxygen Delivery Method Nasal Cannula Oxygen Flow Rate 6 MDM - SOB/Dyspnea Differential Diagnosis Differential diagnosis: Likely acute exacerbation of chronic obstructive airways disease, congestive heart failure and community acquired pneumonia Lab Data 03/09/24 22:04 03/09/24 22:04 Labs: Lab Results 03/09/24 03/09/24 Range/Units 22:04 22:10 WBC 8.7 (4.5-11.0) X10^3/uL RBC 4.41 L (4.5-5.9) X10^6/uL Hgb 12.9 L (13.5-17.5) g/dL Hct 41.2 (41-53) % MCV 93.2 (80-100) fL MCH 29.2 (26-34) PG MCHC 31.4 (30-36) % RDW 14.3 (11.6-14.8) % Plt Count 217 (150-400) X10^3/uL Neut % (Auto) 74.7 (50-75) % Lymph % (Auto) 11.8 L (25-40) % Dickenson % (Auto) 11.7 (3-14) % Eos % (Auto) 1.0 L (2-4) % Baso % (Auto) 0.8 (0-2) % Neut # (Auto) 6500 (3619-8954) /uL Lymph # (Auto) 1000 L (8416-9944) /uL Dickenson # (Auto) 1000 H (0-900) /uL Eos # (Auto) 100 (0-450) /uL Baso # (Auto) 100 (0-100) /uL Sodium 139 (137-145) mmol/L Potassium 3.4 (3.4-5.1) mmol/L Chloride 97 L (98-107) mmol/L Carbon Dioxide 37 H (22-32) mmol/L BUN 15 (9-20) mg/dL Creatinine 0.64 L (0.66-1.25) mg/dL Estimated GFR > 60 (>60) mL/min BUN/Creatinine Ratio 23.4 H (6-22) Glucose 120 H (80-110) mg/dL Calcium 8.8 (8.4-10.2) mg/dL Magnesium 2.2 (1.6-2.3) mg/dL Total Bilirubin 0.6 (0.2-1.3) mg/dL AST 43 (17-59) IU/L ALT 44 (<50) IU/L Alkaline Phosphatase 103 (38-126) U/L Total Creatine Kinase 111 (55-170) U/L Troponin I < 0.012 (0.01-0.034) ng/mL NT-Pro-B Natriuret Pep 2130 H (<450) pg/mL Total Protein 7.5 (6.3-8.2) g/dL Albumin 3.9 (3.5-5.0) g/dL Globulin 3.6 (1.7-4.1) g/dL Albumin/Globulin Ratio 1.1 (1.0-2.8) Chlamy pneumoniae PCR Not detected (Not Detect) Adenovirus (PCR) Not detected (Not Detect) B. pertussis DNA (PCR) Not detected (Not Detect) B.parapertussis DNA PCR Not detected (Not Detecte) Coronavirus OC43 (PCR) Not detected (Not Detect) Coronavirus HKU1 (PCR) Not detected (Not Detect) Coronavirus 229E (PCR) Not detected (Not Detect) SARS-CoV-2 (PCR) Not detected (Not Detecte) Coronavirus NL63 (PCR) Not detected (Not Detect) Human Metapneumovir PCR Not detected (Not Detect) Influenza Type A (PCR) Not detected (Not Detect) Influenza Type B (PCR) Not detected (Not Detect) M. pneumoniae (PCR) Not detected (Not Detect) Parainfluenza 1 (PCR) Not detected (Not Detect) Parainfluenza 2 (PCR) Not detected (Not Detect) Parainfluenza 3 (PCR) Not detected (Not Detect) Parainfluenza 4 (PCR) Not detected (Not Detect) RSV (PCR) Not detected (Not Detect) Entero/Rhino (PCR) Not detected (Not Detect) Imaging Data Chest x-ray: Radiologist's Impression: PROCEDURE: XR CHEST 1V INDICATIONS: dyspnea, hypoxia TECHNIQUE: One view of the chest was acquired. COMPARISON: [facility], CT, CT ANGIO CHEST PE PROTOCOL, 12/16/2023, 14:05. [facility], CR, XR CHEST 1V, 12/15/2023, 9:43. [facility], CR, XR CHEST 2V, 06/16/2018, 15:43. FINDINGS: Surgical changes and devices: None. Lungs and pleura: Hazy bilateral opacities, left greater than right. Superimposed peribronchial cuffing. Mediastinum: Mediastinal contours appear normal. Heart size is normal. Bones and chest wall: No suspicious bony lesions. Overlying soft tissues appear unremarkable. IMPRESSION: Hazy bilateral opacities, left greater than right. Findings are concerning for atypical pneumonia. Superimposed bronchitis is also present. Dictated by: David Baca M.D. on 03/09/2024 at 22:25 Approved by: David Baca M.D. on 03/09/2024 at 22:28 ECG Data Attestation: I personally reviewed and interpreted this ECG as follows: Prior ECG tracings: available for review Interpretation: Normal sinus rhythm at 83 beats per minute. Normal OR. Right bundle-branch block. When compared to EKG from 12/15/2023 there is no change MDM Narrative Medical decision making narrative: Gradually worsening shortness of breath and productive cough. Patient has been noncompliant with his diuretics for nearly 1 week. Profoundly hypoxic on arrival, taken quickly to ER bed and placed on nasal cannula. When sitting in ED bed patient's saturations on 6 L oxygen are 93-94%, however he quickly desaturates with movement. Laboratory work shows WBC count 8.7, hemoglobin 12.9, platelet count 217, sodium 139, potassium 3.4, CO2 37, creatinine 0.64, troponin undetectable, BNP 2130. Chest x-ray shows bilateral opacities, left greater than right. Bronchitis versus pneumonia considered. With patient's history of COPD empiric abx ordered. There do appear to be trace pleural effusions present as well, and since patient has missed diuretics with elevated BNP, 40mg IV lasix ordered. Patient to be admitted for further treatment. Critical Care Time Critical Care Time Critical Care Time: Yes Total Critical Care Time: 33 Attestation: Hypoxemic respiratory failure requiring oxygen, IV antibiotics, diuresis, admission Discharge Plan Departure Patient Disposition: Admitted As Inpatient Clinical Impression: Acute respiratory failure with hypoxia, Acute exacerbation of CHF (congestive heart failure), Community acquired pneumonia Admit Date/Time: 03/10/24 03:38 Admit Provider: Chiara Rodriguez
[2024-03-09 22:48] LABS: Alanine Aminotransferase 44 IU/L (<50); Albumin 3.9 g/dL (3.5-5.0); Albumin Globulin Ratio 1.1 (1.0-2.8); Alkaline Phosphatase 103 U/L (38-126); Aspartate Aminotransferase 43 IU/L (17-59); BUN Creatinine Ratio 23.4 (6-22); Bilirubin Total 0.6 mg/dL (0.2-1.3); Blood Urea Nitrogen 15 mg/dL (9-20); Calcium 8.8 mg/dL (8.4-10.2); Carbon Dioxide 37 mmol/L (22-32); Chloride 97 mmol/L (98-107); Creatine Kinase 111 U/L (55-170); Estimated Glomerular Filt Rate > 60 mL/min (>60); Globulin 3.6 g/dL (1.7-4.1); Glucose 120 mg/dL (80-110); Magnesium 2.2 mg/dL (1.6-2.3); Potassium 3.4 mmol/L (3.4-5.1); Sodium 139 mmol/L (137-145); Total Protein 7.5 g/dL (6.3-8.2)
[2024-03-09 22:58] LABS: HEMOLYSIS < 15 (0-50); NT-proBNP (BNP-Adult 18+) 2130 pg/mL (<450)
[2024-03-09 22:59] LABS: Troponin I < 0.012 ng/mL (0.01-0.034)
[2024-03-09 23:10] LABS: Add Manual Diff / Slide Review NO; Basophils Absolute Auto 100 /uL (0-100); Basophils Percent Auto 0.8 % (0-2); Eosinophils Absolute Auto 100 /uL (0-450); Hematocrit 41.2 % (41-53); Hemoglobin 12.9 g/dL (13.5-17.5); Lymphocytes Absolute Auto 1000 /uL (1100-4500); Lymphocytes Percent Auto 11.8 % (25-40); Mean Corpuscular HGB Conc 31.4 % (30-36); Mean Corpuscular Hemoglobin 29.2 PG (26-34); Mean Corpuscular Volume 93.2 fL (80-100); Monocytes Absolute Auto 1000 /uL (0-900); Monocytes Percent Auto 11.7 % (3-14); Neutrophils Absolute Auto 6500 /uL (1500-7000); Neutrophils Percent Auto 74.7 % (50-75); Platelet Count 217 X10^3/uL (150-400); Red Blood Cell Count 4.41 X10^6/uL (4.5-5.9); Red Cell Distribution Width 14.3 % (11.6-14.8); White Blood Cell Count 8.7 X10^3/uL (4.5-11.0)
[2024-03-09] MEDS: cefTRIAXone 2,000 MG in SODIUM CHLORIDE 0.9% 100 ML 200 MG IV (23:14)
[2024-03-09] MEDS: FUROSEMIDE 40 MG/4 ML VIAL IV (23:14)
[2024-03-09 23:19] LABS: Adenovirus Not Detected (Not Detect); B. parapertussis Not Detected (Not Detecte); Bordetella pertussis Not Detected (Not Detect); Chlamydophila pneumoniae Not Detected (Not Detect); Coronavirus 229E Not Detected (Not Detect); Coronavirus HKU1 Not Detected (Not Detect); Coronavirus NL 63 Not Detected (Not Detect); Coronavirus OC43 Not Detected (Not Detect); Human Metapneumovirus Not Detected (Not Detect); Human Rhinovirus/Enterovirus Not Detected (Not Detect); Influenza A Not Detected (Not Detect); Influenza B Not Detected (Not Detect); Mycoplasma pneumoniae Not Detected (Not Detect); Parainfluenza Virus 1 Not Detected (Not Detect); Parainfluenza Virus 2 Not Detected (Not Detect); Parainfluenza Virus 3 Not Detected (Not Detect); Parainfluenza Virus 4 Not Detected (Not Detect); Respiratory Syncytial Virus Not Detected (Not Detect); SARS- CoV-2 Not Detected (Not Detecte)
[2024-03-09] MEDS: AZITHROMYCIN 500 MG in DEXTROSE 5% IN WATER 250 ML 250 MG IV (23:47)
[2024-03-10] VITALS (17 sets, daily range): BP systolic 123–187; BP diastolic 51–84; PULSE 53–94; RESP 16–24; TEMP 36.1–36.5; O2SAT 88–97; BMI 39.7
--- NOTE | 2024-03-10 00:35 | PC.NURSE ---
Pt resting quietly witrh eyes closed, reps even and not labored. No distress noted at this time. Pt remains connected to cardiac, reps, blood pressure, and pulse ox monitors with alarms on and audible. call light within reach.
--- NOTE | 2024-03-10 02:18 | PC.NURSE ---
In to exam room for patient check. Pt noted to have large urine output in ED stretcher. Pt assisted to chair, bedding and patient changed, patient placed back in stretcher. Pt placed back on cardiac, resp, pulse ox, and blood pressure monitors with alarms on and audible. Call light within reach.
--- NOTE | 2024-03-10 03:08 | PC.NURSE ---
Patient resting quietly with eyes closed, resps even and not labored. No distress noted at this time. Pt remains connected to cardiac, resp, blood pressure, and pulse ox monitors with alarms on and audible. Call light within reach.
--- NOTE | 2024-03-10 04:30 | PC.NURSE ---
Pt arrived to unit via stretcher, uncooperative and unable to answer questions appropriately. After settling patient in bed, Pt was more cooperative.. AOx3, agitated at times and not wanting to participate in admission questions. Pt came up on 6L NC, now down to 3L NC sating 94%. Bases diminished, HR regular 88. L AC PIV SL. Compression stockings removed and pt has dry BLE, no open areas. +2 BLE edema noted. Notified doctor, orders pending.
--- NOTE | 2024-03-10 05:13 | PM.HP.1 ---
History of Present Illness History of Present Illness Date Patient Seen: 03/10/24 Chief complaint: difficulty breathing Narrative: <del>Eladio</del> <del>[place]</del> <del>is</del> <del>a</del> <del>78</del> <del>y/o</del> <del>Male</del> <del>with</del> <del>h/o</del> <del>Prostate</del> <del>ca</del> <del>on</del> <del>Lupron</del> <del>inj</del> <del>quarterly,</del> <del>HTN,</del> <del>COPD,</del> <del>not</del> <del>on</del> <del>home</del> <del>O2,</del> <del>Chronic</del> <del>Diastolc</del> <del>CHF,</del> <del>h/o</del> <del>non</del> <del>compliance</del> <del>with</del> <del>his</del> <del>home</del> <del>meds,</del> <del>including</del> <del>diuretic,</del> <del>Torsemide</del> <del>,</del> <del>chronic</del> <del>Bilat</del> <del>LE</del> <del>edema,</del> <del>chronic</del> <del>venous</del> <del>stasis,</del> <del>lymphedema</del> <del>of</del> <del>bilat</del> <del>LE,</del> <del>he</del> <del>had</del> <del>a</del> <del>similar</del> <del>admission</del> <del>with</del> <del>acute</del> <del>CHF</del> <del>exacerbation</del> <del>Sept</del> <del>17</del> <del>to</del> <del>Sept</del> <del>-23</del> <del>2023,</del> <del>with</del> <del>diuretic</del> <del>non</del> <del>compliance,</del> <del>and</del> <del>was</del> <del>diuresed</del> <del>aggressively</del> <del>with</del> <del>symptom</del> <del>improvement.</del> <del>Pt</del> <del>states</del> <del>he</del> <del>has</del> <del>been</del> <del>away</del> <del>from</del> <del>his</del> <del>home</del> <del>for</del> <del>last</del> <del>6</del> <del>days</del> <del>and</del> <del>he</del> <del>did</del> <del>not</del> <del>have</del> <del>his</del> <del>medications</del> <del>with</del> <del>him,</del> <del>so</del> <del>he</del> <del>has</del> <del>not</del> <del>taken</del> <del>his</del> <del>torsemide,</del> <del>(</del> <del>he</del> <del>states</del> <del>he</del> <del>takes</del> <del>20</del> <del>mg</del> <del>once</del> <del>each</del> <del>morning),</del> <del>Lisinopril</del> <del>and</del> <del>Atorvastatin</del> <del>He</del> <del>noted</del> <del>progressive</del> <del>SOB,</del> <del>as</del> <del>well</del> <del>as</del> <del>noted</del> <del>productive</del> <del>cough</del> <del>with</del> <del>yellow</del> <del>sputum</del> <del>,</del> <del>no</del> <del>hemoptysis</del> <del>He</del> <del>has</del> <del>noted</del> <del>his</del> <del>legs</del> <del>and</del> <del>ankles</del> <del>more</del> <del>swollen</del> <del>than</del> <del>his</del> <del>baseline.</del> <del>Denies</del> <del>f/c,</del> <del>light</del> <del>headedness,</del> <del>syncope,</del> <del>abd</del> <del>pain,</del> <del>N/V,</del> <del>PND,</del> <del>N/V/D,</del> <del>body</del> <del>aches</del> <del>or</del> <del>severe</del> <del>headaches.</del> <del>Denies</del> <del>sick</del> <del>contacts.</del> <del>Denies</del> <del>h/o</del> <del>RI,</del> <del>Stroke,</del> <del>Cardiac</del> <del>Arrythmias,</del> <del>DVT/</del> <del>or</del> <del>PE</del> <del>,</del> <del>No</del> <del>Dysuria</del> <del>or</del> <del>flank</del> <del>pain</del> <del>He</del> <del>came</del> <del>to</del> <del>ED</del> <del>for</del> <del>evaluation.</del> <del>In</del> <del>ED</del> <del>he</del> <del>was</del> <del>noted</del> <del>to</del> <del>be</del> <del>hypoxic</del> <del>at</del> <del>77%</del> <del>at</del> <del>RA</del> <del>He</del> <del>was</del> <del>put</del> <del>on</del> <del>6</del> <del>L</del> <del>O2</del> <del>via</del> <del>NC,</del> <del>HR</del> <del>101</del> <del>Regular,</del> <del>BP</del> <del>139/71,</del> <del>Afebrile,</del> <del>Tachypneic</del> <del>He</del> <del>was</del> <del>given</del> <del>Lasix</del> <del>40</del> <del>mg</del> <del>IV</del> <del>and</del> <del>he</del> <del>was</del> <del>able</del> <del>to</del> <del>diurese</del> <del>with</del> <del>improvement</del> <del>in</del> <del>symoptms</del> <del>CXR</del> <del>:</del> <del>PNA</del> <del>/</del> <del>Bronchitis</del> <del>Was</del> <del>also</del> <del>given</del> <del>Ceftriaxone</del> <del>2</del> <del>gms</del> <del>IV</del> <del>and</del> <del>Azithromycin</del> <del>500</del> <del>mg</del> <del>IV</del> <del>CTA</del> <del>Chest</del> <del>:</del> No acute pulmonary embolus. No acute abnormality is seen in the chest. 2. Stable bilateral pulmonary nodules are considered benign. 3. Moderate cardiomegaly. CXR : bronchitis / possible PNA , and bilateral small Pleural effusion Labs : Pro BNP elevated 2130, ( 979 previously) Troponin 0.012 No Leukocytosis Renal and hepatic function WNL EKG reviewed by me: NSR , VR 83, No acute ST- T wave changes noted, EKG unchanged from 12/14 Pt was referred for admission for continued diuresis, and IV abx Review of chart indicates Echo done Nov 2023 admission: The ejection fraction is estimated to be 65-70% Moderate MV calcification Concentric LVH PASP 15 PFSH Medical History (Updated 03/10/24 @ 09:27 by Chiara Rodriguez MD) Prostate cancer HLD (hyperlipidemia) KORTNEY and COPD overlap syndrome KORTNEY (obstructive sleep apnea) Asthma Hypertension Social History household members: spouse Smoking Status: Former smoker alcohol intake: former Meds Home Medications and Allergies Home Medications Medication Instructions Recorded Confirmed Type lisinopril 20 mg tablet 10 mg PO DAILY ##0 03/26/16 03/10/24 History albuterol sulfate 90 mcg/actuation 2 puff INH Q4HP PRN Shortness Of 06/16/18 03/10/24 History aerosol inhaler (Ventolin HFA) Breath atorvastatin 80 mg tablet 80 mg PO DAILY 12/15/23 03/10/24 History darolutamide 300 mg tablet (Nubeqa) 600 mg PO BID 12/15/23 03/10/24 History torsemide 20 mg tablet 20 mg PO BID #60 tabs 12/19/23 03/10/24 Rx cetirizine 10 mg tablet 10 mg PO DAILY 03/10/24 03/10/24 History lisinopril 10 mg tablet 10 mg PO DAILY 03/10/24 03/10/24 History montelukast 10 mg tablet 10 mg PO DAILY 03/10/24 03/10/24 History spironolactone 25 mg tablet 25 mg PO DAILY 03/10/24 03/10/24 History tamsulosin 0.4 mg capsule 0.4 mg PO DAILY 03/10/24 03/10/24 History torsemide 10 mg tablet 10 mg PO DAILY 03/10/24 03/10/24 History Allergies Allergy/AdvReac Type Severity Reaction Status Date / Time No Known Drug Allergies Allergy Verified 04/01/18 11:02 Review of Systems Review of Systems ROS: Yes All systems reviewed with the patient and are negative except as otherwise documented Exam Vital Signs (past 8 hours): - 03/09/24 21:41 03/09/24 21:53 03/09/24 21:57 Temperature 97.1 F L Pulse Rate 101 H Respiratory Rate 20 Blood Pressure 139/71 143/67 H Pulse Oximetry 89 L 82 L Oxygen Delivery Method Room Air Room Air Oxygen Flow Rate 03/09/24 21:57 03/09/24 22:00 03/09/24 22:00 Temperature Pulse Rate 93 H 86 Respiratory Rate Blood Pressure 132/66 Pulse Oximetry 80 L 92 Oxygen Delivery Method Room Air Nasal Cannula Oxygen Flow Rate 6 03/09/24 22:30 03/09/24 22:30 03/09/24 23:00 Temperature Pulse Rate 87 85 Respiratory Rate 10 L 13 Blood Pressure 148/66 H Pulse Oximetry 90 L 93 Oxygen Delivery Method Nasal Cannula Oxygen Flow Rate 6 03/09/24 23:00 03/09/24 23:30 03/09/24 23:31 Temperature Pulse Rate 86 Respiratory Rate 16 Blood Pressure 132/63 163/74 H Pulse Oximetry 92 Oxygen Delivery Method Nasal Cannula Oxygen Flow Rate 6 03/09/24 23:31 03/10/24 00:00 03/10/24 00:00 Temperature Pulse Rate 90 86 Respiratory Rate 20 18 Blood Pressure 165/79 H Pulse Oximetry 91 94 Oxygen Delivery Method Nasal Cannula Nasal Cannula Oxygen Flow Rate 6 6 03/10/24 00:30 03/10/24 00:30 03/10/24 01:00 Temperature Pulse Rate 85 Respiratory Rate 17 Blood Pressure 134/65 135/68 Pulse Oximetry 93 Oxygen Delivery Method Nasal Cannula Oxygen Flow Rate 6 03/10/24 01:29 03/10/24 01:30 03/10/24 01:30 Temperature Pulse Rate 92 H 92 H Respiratory Rate 20 19 Blood Pressure 187/84 H Pulse Oximetry 93 94 Oxygen Delivery Method Oxygen Flow Rate 03/10/24 02:06 03/10/24 02:12 03/10/24 02:12 Temperature Pulse Rate 53 L 89 Respiratory Rate Blood Pressure 137/63 Pulse Oximetry 95 93 Oxygen Delivery Method Nasal Cannula Oxygen Flow Rate 6 03/10/24 02:30 03/10/24 02:30 03/10/24 03:00 Temperature Pulse Rate 85 Respiratory Rate 24 Blood Pressure 136/65 134/64 Pulse Oximetry 92 Oxygen Delivery Method Nasal Cannula Oxygen Flow Rate 6 03/10/24 03:00 03/10/24 03:50 03/10/24 04:24 Temperature 97.4 F L Pulse Rate 81 88 86 Respiratory Rate 16 21 18 Blood Pressure 139/64 Pulse Oximetry 94 95 94 Oxygen Delivery Method Nasal Cannula Nasal Cannula Humidification Oxygen Flow Rate 6 6 3.5 03/10/24 04:34 Temperature Pulse Rate Respiratory Rate Blood Pressure Pulse Oximetry Oxygen Delivery Method Nasal Cannula Oxygen Flow Rate Oxygen Delivery Method Nasal Cannula Oxygen Flow Rate 3.5 Narrative Exam Narrative: Pleasant, laying in bed, answering questions appropriatly Const General: cooperative Nutritional Appearance: well nourished Orientation: alert, awake and oriented x3 HENMT Head: normal to inspection, normocephalic and atraumatic Ears: EAC's normal Nose: nares normal Face and sinus: normal facial exam and other (Facial asymetry noted see below) Mouth: oral mucosae normal Throat: posterior oropharynx normal Eyes General: appearance normal, both eyes and all related structures Conjunctivae: conjunctivae normal Sclera: sclerae normal Pupils: PERRL EOM: EOM intact bilaterally Neck Neck: normal visual inspection, full ROM and supple Thyroid: thyroid normal Carotids: normal carotid upstroke Other: No Lymphadenopathy Chest Chest: normal inspection of the chest Resp Effort & Inspection: normal respiratory effort and able to speak in complete sentences Auscultation: other (Decreased BS t bases, crackles : Left base) Cardio Palpation: normal PMI Rate: tachycardic Rhythm: regular rhythm Heart Sounds: S1 normal, S2 normal and other (No /G/R MARINO) Pulses: normal peripheral pulses GI Inspection: normal to inspection Palpation: soft Auscultation: normal bowel sounds Back/Spine/Pelvis Thoracic/Lumbar Spine: other (No tenderness of spine) Skin General: no rashes or lesions noted and other (non clammy ) Lesions: no lesions Rashes: no rashes Trauma: no lacerations or abrasions Hair: sheds easily Nails: normal Neuro General: patient alert and patient oriented x3 Cranial Nerves: PERRL and other (cranial nerves tested are normal except L sided Ocular ms: Left gaze palsy) Cognition: normal cognition Speech: speech normal Motor: strength 5/5 throughout and no movement abnormalities noted Sensory Exam: no sensory deficits noted Other: DTRs: 3/5 bilat in upper and lower extremities Extrem General: normal to inspection, no clubbing, cyanosis or edema, no calf tenderness and other (Bilat LE edema 3+ , chronic venous stasis bilat LE) Psych Appearance: grossly normal Speech and Movement: speech clear Mood: congruent mood Affect: normal affect Attitude: cooperative Thought Process: normal Thought Content: normal Judgment: judgment good Objective ECG Impression: see HPI Imaging Chest x-ray: Radiologist's impression: Linear infrahilar lung markings most likely represent scarring versus atelectasis. Superimposed atypical pneumonia cannot be completely excluded. Please correlate clinically. Labs 03/09/24 22:04 03/09/24 22:04 Labs: Laboratory Results - last 24 hr 03/09/24 03/09/24 22:04 22:10 WBC 8.7 RBC 4.41 L Hgb 12.9 L Hct 41.2 MCV 93.2 MCH 29.2 MCHC 31.4 RDW 14.3 Plt Count 217 Neut % (Auto) 74.7 Lymph % (Auto) 11.8 L [place] % (Auto) 11.7 Eos % (Auto) 1.0 L Baso % (Auto) 0.8 Neut # (Auto) 6500 Lymph # (Auto) 1000 L [place] # (Auto) 1000 H Eos # (Auto) 100 Baso # (Auto) 100 Sodium 139 Potassium 3.4 Chloride 97 L Carbon Dioxide 37 H BUN 15 Creatinine 0.64 L Estimated GFR > 60 BUN/Creatinine Ratio 23.4 H Glucose 120 H Calcium 8.8 Magnesium 2.2 Total Bilirubin 0.6 AST 43 ALT 44 Alkaline Phosphatase 103 Total Creatine Kinase 111 Troponin I < 0.012 NT-Pro-B Natriuret Pep 2130 H Total Protein 7.5 Albumin 3.9 Globulin 3.6 Albumin/Globulin Ratio 1.1 Chlamy pneumoniae PCR Not detected Adenovirus (PCR) Not detected B. pertussis DNA (PCR) Not detected B.parapertussis DNA PCR Not detected Coronavirus OC43 (PCR) Not detected Coronavirus HKU1 (PCR) Not detected Coronavirus 229E (PCR) Not detected SARS-CoV-2 (PCR) Not detected Coronavirus NL63 (PCR) Not detected Human Metapneumovir PCR Not detected Influenza Type A (PCR) Not detected Influenza Type B (PCR) Not detected M. pneumoniae (PCR) Not detected Parainfluenza 1 (PCR) Not detected Parainfluenza 2 (PCR) Not detected Parainfluenza 3 (PCR) Not detected Parainfluenza 4 (PCR) Not detected RSV (PCR) Not detected Entero/Rhino (PCR) Not detected Assessment & Plan Assessment and plan (1) Acute respiratory failure with hypoxia: Status: Acute (2) Acute exacerbation of CHF (congestive heart failure): Qualifiers: Heart failure type: diastolic Qualified Code(s): I50.33 - Acute on chronic diastolic (congestive) heart failure Status: Acute (3) Community acquired pneumonia: Qualifiers: Lung location: unspecified part of lung Qualified Code(s): J18.9 - Pneumonia, unspecified organism Status: Acute (4) KORTNEY and COPD overlap syndrome: Status: Acute (5) HLD (hyperlipidemia): Qualifiers: Hyperlipidemia type: mixed hyperlipidemia Qualified Code(s): E78.2 - Mixed hyperlipidemia Status: Acute (6) Prostate cancer: Problem details: On Nubeqa Status: Acute Plan Likely sec to Fluid overload, as pt has been non compliant with his meds including his Diuretic/ Torsemide. Pt non compliant with diet ( not adhering to low salt diet) Given Lasix 40 mg IV in ED, shall continue as needed. Strict Is and Os, Daily wt, low salt diet Titrate FiO2 to keep O2 sats at 93% Similar scenario on Nov 2023 admission with Exacerbation of Chronic diastolic CHF Advised pt to take his meds with him when planning to be away from home for extended periods of time Additional etiology for Resp Failure with Hypoxia:bilateral PNA / Bronchitis( given COPD history) Started on Ceftriaxone and Azithromycin IV , continue same Neb inh treatments prn Check Procalcitonin Re: possibility of KORTNEY , pt has been noted on prior admission, for out pt evaluation / referrel for sleep studies Time-Based Coding :: 77] spent with patient and on the chart (including review of chart, obtaining history, exam, reviewing outside data, placing orders, documenting exam and treatment plan, and counseling patient) on [DATE].
--- NOTE | 2024-03-10 08:25 | P.HP_ITS ---
History of Present Illness History of Present Illness Date Patient Seen: 03/10/24 Chief complaint: difficulty breathing Narrative: Summary: The patient was a 78-year-old male with history of COPD, CHF, chronic leg edema, and prostate cancer on maintenance Lupron. He presented with 2-3 days of worsening shortness a breath and productive cough. 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 It was have a history of chronic diastolic heart failure, medication noncompliance, hypertension, COPD, and chronic leg edema. He presented with progressive shortness a breath. He also notes that he forgot his medications on his last work run in his not been taking these for 6 days. He does work 7 days in a row. Denies any chest pain. [facility] Medical History Prostate cancer HLD (hyperlipidemia) KORTNEY and COPD overlap syndrome KORTNEY (obstructive sleep apnea) Asthma Hypertension Social History household members: spouse Smoking Status: Former smoker alcohol intake: former Meds Home Medications and Allergies Home Medications Medication Instructions Recorded Confirmed Type lisinopril 20 mg tablet 10 mg PO DAILY ##0 03/26/16 03/10/24 History albuterol sulfate 90 mcg/actuation 2 puff INH Q4HP PRN Shortness Of 06/16/18 03/10/24 History aerosol inhaler (Ventolin HFA) Breath atorvastatin 80 mg tablet 80 mg PO DAILY 12/15/23 03/10/24 History darolutamide 300 mg tablet (Nubeqa) 600 mg PO BID 12/15/23 03/10/24 History torsemide 20 mg tablet 20 mg PO BID #60 tabs 12/19/23 03/10/24 Rx cetirizine 10 mg tablet 10 mg PO DAILY 03/10/24 03/10/24 History lisinopril 10 mg tablet 10 mg PO DAILY 03/10/24 03/10/24 History montelukast 10 mg tablet 10 mg PO DAILY 03/10/24 03/10/24 History spironolactone 25 mg tablet 25 mg PO DAILY 03/10/24 03/10/24 History tamsulosin 0.4 mg capsule 0.4 mg PO DAILY 03/10/24 03/10/24 History torsemide 10 mg tablet 10 mg PO DAILY 03/10/24 03/10/24 History Allergies Allergy/AdvReac Type Severity Reaction Status Date / Time No Known Drug Allergies Allergy Verified 04/01/18 11:02 Review of Systems Review of Systems Narrative: All else reviewed and otherwise unremarkable except as noted in the history and physical. Exam Vital Signs (past 8 hours): - 03/10/24 00:30 03/10/24 00:30 03/10/24 01:00 Temperature Pulse Rate 85 Respiratory Rate 17 Blood Pressure 134/65 135/68 Pulse Oximetry 93 Oxygen Delivery Method Nasal Cannula Oxygen Flow Rate 6 03/10/24 01:29 03/10/24 01:30 03/10/24 01:30 Temperature Pulse Rate 92 H 92 H Respiratory Rate 20 19 Blood Pressure 187/84 H Pulse Oximetry 93 94 Oxygen Delivery Method Oxygen Flow Rate 03/10/24 02:06 03/10/24 02:12 03/10/24 02:12 Temperature Pulse Rate 53 L 89 Respiratory Rate Blood Pressure 137/63 Pulse Oximetry 95 93 Oxygen Delivery Method Nasal Cannula Oxygen Flow Rate 6 03/10/24 02:30 03/10/24 02:30 03/10/24 03:00 Temperature Pulse Rate 85 Respiratory Rate 24 Blood Pressure 136/65 134/64 Pulse Oximetry 92 Oxygen Delivery Method Nasal Cannula Oxygen Flow Rate 6 03/10/24 03:00 03/10/24 03:50 03/10/24 04:24 Temperature 97.4 F L Pulse Rate 81 88 86 Respiratory Rate 16 21 18 Blood Pressure 139/64 Pulse Oximetry 94 95 94 Oxygen Delivery Method Nasal Cannula Nasal Cannula Humidification Oxygen Flow Rate 6 6 3.5 03/10/24 04:34 Temperature Pulse Rate Respiratory Rate Blood Pressure Pulse Oximetry Oxygen Delivery Method Nasal Cannula Oxygen Flow Rate Oxygen Delivery Method Nasal Cannula Oxygen Flow Rate 3.5 Narrative Exam Narrative: NAD, alert and oriented, fluent speech, calm. He was lethargic. Normocephalic skull, EOMI, anicteric sclera, symmetric pupils. Oropharynx unremarkable, no droop. Neck supple, midline trachea, no adenopathy. Lungs clear, normal rate and effort. Heart regular, no murmur gallop or rub. Abdomen is soft, non distended and non tender. Extremities are grossly swollen Skin is free of rash or lesions. Joints are not swollen or deformed. Judgment appears to be normal. Objective ECG Impression: Right bundle branch block T wave abnormality, consider lateral ischemia Imaging Chest x-ray: Radiologist's impression: Hazy bilateral opacities, left greater than right. Findings are concerning for atypical pneumonia. Superimposed bronchitis is also present. Labs 03/09/24 22:04 03/09/24 22:04 Labs: Laboratory Results - last 24 hr 03/09/24 03/09/24 22:04 22:10 WBC 8.7 RBC 4.41 L Hgb 12.9 L Hct 41.2 MCV 93.2 MCH 29.2 MCHC 31.4 RDW 14.3 Plt Count 217 Neut % (Auto) 74.7 Lymph % (Auto) 11.8 L [place] % (Auto) 11.7 Eos % (Auto) 1.0 L Baso % (Auto) 0.8 Neut # (Auto) 6500 Lymph # (Auto) 1000 L [place] # (Auto) 1000 H Eos # (Auto) 100 Baso # (Auto) 100 Sodium 139 Potassium 3.4 Chloride 97 L Carbon Dioxide 37 H BUN 15 Creatinine 0.64 L Estimated GFR > 60 BUN/Creatinine Ratio 23.4 H Glucose 120 H Calcium 8.8 Magnesium 2.2 Total Bilirubin 0.6 AST 43 ALT 44 Alkaline Phosphatase 103 Total Creatine Kinase 111 Troponin I < 0.012 NT-Pro-B Natriuret Pep 2130 H Total Protein 7.5 Albumin 3.9 Globulin 3.6 Albumin/Globulin Ratio 1.1 Chlamy pneumoniae PCR Not detected Adenovirus (PCR) Not detected B. pertussis DNA (PCR) Not detected B.parapertussis DNA PCR Not detected Coronavirus OC43 (PCR) Not detected Coronavirus HKU1 (PCR) Not detected Coronavirus 229E (PCR) Not detected SARS-CoV-2 (PCR) Not detected Coronavirus NL63 (PCR) Not detected Human Metapneumovir PCR Not detected Influenza Type A (PCR) Not detected Influenza Type B (PCR) Not detected M. pneumoniae (PCR) Not detected Parainfluenza 1 (PCR) Not detected Parainfluenza 2 (PCR) Not detected Parainfluenza 3 (PCR) Not detected Parainfluenza 4 (PCR) Not detected RSV (PCR) Not detected Entero/Rhino (PCR) Not detected Assessment & Plan Assessment & Plan narrative: 1. Acute hypoxic respiratory failure, present on admission and active. 2. Acute pulmonary edema, present on admission and improving. 3. Acute on chronic diastolic heart failure with normal EF, present on admission and improving. 4. Chronic abnormal EKG with a right bundle branch block, present on admission and stable. 5. COPD, present on admission and active. 6. Hypertension, present on admission and active. 7. Prostate cancer, present on admission and stable. 8. Severely elevated pulmonary pressures consistent with pulmonary hypertension versus pulmonary embolism, present on admission and active. The patient can not state if he was had an echo before. He does have a history of probable untreated sleep apnea. 9. Moderate aortic stenosis, present on admission and active. Plan: -we will begin diuresis and wean oxygen as able. We will monitor his mental status. -we will also monitor for arrhythmia on telemetry Anticipate a 2 midnight stay, inpatient status as supported. Full resuscitation His is his proxy decision maker. Time-Based Coding :: 35 min spent with patient and on the chart (including review of chart, obtaining history, exam, reviewing outside data, placing orders, documenting exam and treatment plan, and counseling patient) on 03/10. Quality MIPS - Admit I confirm the patient?s Advance Care Plan is present, Code status is documented, Surrogate decision maker is in patient?s record [If Yes, STOP here]: Yes MIPS - Meds 'Current medications' to include all prescriptions, [id number] products, herbals, cannabis/cannabidiol products, and vitamin/mineral/dietary (nutritional) supplements. I have utilized all available resources to obtain, update, or review the patient?s current medications. [If Yes, STOP here]: Yes
[2024-03-10] MEDS: ATORVASTATIN 20 MG TABLET 80 MG PO (09:40)
[2024-03-10] MEDS: TAMSULOSIN 0.4 MG CAPSULE PO (09:41)
[2024-03-10] MEDS: HEPARIN 5,000 UNIT/ML VIAL 5000 UNIT SUBCUT (09:41)
[2024-03-10] MEDS: ACETAMINOPHEN 325 MG TABLET 650 MG PO (09:41)
[2024-03-10] MEDS: MONTELUKAST 10 MG TABLET PO (09:41)
[2024-03-10] MEDS: SPIRONOLACTONE 25 MG TABLET PO (09:41)
[2024-03-10] MEDS: LORATADINE 10 MG TABLET PO (09:41)
--- NOTE | 2024-03-10 11:22 | CM.DANOTE ---
Patient is a 78yo male who was admitted INPT Status on 03/10/24 for CHF and acute resp failure. PCP Jorge A Dudley and de Per hospitalist in morning rounds, pt with hx of COPD, CHF, edema, and prostrate CA with maintenance Lupron and admitted for resp failure, diuresis, and currently on 3.5 LO2 and not yet stable for discharge today but in another 1-2 days. Pt last admitted in Nov 2023 for similar and was able to discharge home with no needs. 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 Pt preference is to discharge home when medically stable and spouse likely to provide transport. Plan: SW to follow for attempts to wean patient off oxygen for plan of home when medically stable and any further identified discharge planning needs. JESSICA Rivera Discharge Planning/Care Management CM Discharge Assessment Start: 03/10/24 11:20 Freq: Status: Active Protocol: Document 03/10/24 11:20 BF (Rec: 03/10/24 11:22 BF [id number]) Discharge Planning Assessment Assigned Manager Customs JESSICA Sullivan DPOA/Assigned Designee Name darnell Lubin Contact Information [phone] Advance Directives? No Advance Directives on File No History Provided By Patient,Medical Record Has Patient been admitted in last 30 No days? Prior Living Arrangements House Household Members spouse Type of transporation used prior to Drives own vehicle admit Independent with ADL's Yes Is patient alert and oriented? Yes Caregiver for Another No Barriers to Discharge No Discharge Plan Home Referrals Initiated None needed Additional Comment Unless pt cannot be weaned off oxygen, then new home O2 Whiteboard Updated in Patient Room with Yes name and ext. # of Manager Customs Review Status In Process Please Provide Date Initial DC 03/10/24 Assessment Was Performed Next Review Type Continued Stay Review
[2024-03-10] MEDS: DAROLUTAMIDE 300 MG 600 EACH PO ×2 (12:09→21:55)
[2024-03-10 13:07] LABS: BUN Creatinine Ratio 21.4 (6-22); Blood Urea Nitrogen 12 mg/dL (9-20); Calcium 8.3 mg/dL (8.4-10.2); Chloride 95 mmol/L (98-107); Estimated Glomerular Filt Rate > 60 mL/min (>60); Glucose 118 mg/dL (80-110); Potassium 4.2 mmol/L (3.4-5.1); Sodium 140 mmol/L (137-145)
[2024-03-10 13:19] LABS: Carbon Dioxide 37 mmol/L (22-32)
[2024-03-10 13:23] LABS: HEMOLYSIS 60 (0-50)
[2024-03-10] MEDS: FUROSEMIDE 40 MG/4 ML VIAL IV (18:06)
--- NOTE | 2024-03-10 19:43 | RT ---
Pt has his home CPAP machine at bedside but is missing nasal mask. He doesn't have anyone who can bring it to the hospital. RT offered hospital CPAP, pt declined. He is currently on NC and is on cont. pulse oximetry. Will cont. to monitor. RN notified.
[2024-03-10] MEDS: cefTRIAXone 2,000 MG in SODIUM CHLORIDE 0.9% 100 ML 200 MG IV (21:49)
[2024-03-10] MEDS: AZITHROMYCIN 500 MG in DEXTROSE 5% IN WATER 250 ML 250 MG IV (22:57)
[2024-03-11] VITALS (8 sets, daily range): BP systolic 117–137; BP diastolic 60–76; PULSE 88–93; RESP 18–22; TEMP 36.1–36.4; O2SAT 90–98
[2024-03-11 05:24] LABS: Chloride 88 mmol/L (98-107); HEMOLYSIS < 15 (0-50); Potassium 3.8 mmol/L (3.4-5.1); Sodium 138 mmol/L (137-145)
[2024-03-11 05:26] LABS: Blood Urea Nitrogen 14 mg/dL (9-20); Calcium 8.5 mg/dL (8.4-10.2); Estimated Glomerular Filt Rate > 60 mL/min (>60); Glucose 119 mg/dL (80-110)
[2024-03-11 05:40] LABS: Carbon Dioxide 42 mmol/L (22-32)
[2024-03-11] MEDS: FUROSEMIDE 40 MG/4 ML VIAL IV ×2 (06:47→20:44)
--- NOTE | 2024-03-11 08:05 | PM.PN.1 ---
Subjective Subjective Interval history: S: He was doing okay, he does not feel a whole lot better today. He is not short of breath but feels lethargic. He was massive leg swelling. Exam Vital Signs (past 8 hours): - 03/11/24 04:00 Temperature 97.2 F L Pulse Rate 91 H Respiratory Rate 22 Blood Pressure 136/76 Pulse Oximetry 90 L Oxygen Flow Rate 4 Fraction of Inspired Oxygen 36 SaO2/FiO2 Ratio 250 Oxygen Delivery Method Nasal Cannula,Humidification Oxygen Flow Rate 4 Narrative Exam Narrative: NAD, alert and oriented, fluent speech, calm. He was lethargic. Obese. Normocephalic skull, EOMI, anicteric sclera, symmetric pupils. Oropharynx unremarkable, no droop. Neck supple, midline trachea, no adenopathy. Lungs clear, normal rate and effort. Heart regular, no murmur gallop or rub. Abdomen is soft, non distended and non tender. Extremities are grossly swollen Objective Labs 03/09/24 22:04 03/11/24 03:59 Labs: Laboratory Results - last 24 hr 03/10/24 03/11/24 11:30 03:59 Sodium 140 138 Potassium 4.2 3.8 Chloride 95 L 88 L Carbon Dioxide 37 H 42 H* BUN 12 14 Creatinine 0.56 L 0.70 Estimated GFR > 60 > 60 BUN/Creatinine Ratio 21.4 20.0 Glucose 118 H 119 H Calcium 8.3 L 8.5 PFSH Medical History Prostate cancer HLD (hyperlipidemia) KORTNEY and COPD overlap syndrome KORTNEY (obstructive sleep apnea) Asthma Hypertension Social History household members: spouse Smoking Status: Former smoker alcohol intake: former Assessment & Plan Assessment & Plan narrative: 1. Acute hypoxic respiratory failure, present on admission and improved. 2. Acute pulmonary edema, present on admission and improving. 3. Acute on chronic diastolic heart failure, present on admission and improving. 4. Chronic abnormal EKG with a right bundle branch block, present on admission and stable. 5. COPD (no exacerbation), present on admission and active. 6. Hypertension, present on admission and active. 7. Prostate cancer, present on admission and stable. 8. Severely elevated pulmonary pressures consistent with pulmonary hypertension versus pulmonary embolism, present on admission and active. The patient can not state if he was had an echo before. He does have a history of probable untreated sleep apnea. 9. Moderate aortic stenosis, present on admission and active. Plan: -we continue diuresis. We will monitor his mental status. -we will also monitor for arrhythmia on telemetry. -Monitor electrolytes. He does have an alkalosis which we will continue to monitor with his diuresis. Anticipate that this is related to his chronic hypercarbia. -ABG to assess CO2 if he was mental status worsens. FIDE: 03/13. Anticipate a 2 midnight stay, inpatient status as supported. Full resuscitation His is his proxy decision maker. Time-Based Coding :: [TOTAL MINUTES] spent with patient and on the chart (including review of chart, obtaining history, exam, reviewing outside data, placing orders, documenting exam and treatment plan, and counseling patient) on [DATE].
[2024-03-11] MEDS: MONTELUKAST 10 MG TABLET PO (08:17)
[2024-03-11] MEDS: SPIRONOLACTONE 25 MG TABLET PO (08:17)
[2024-03-11] MEDS: TAMSULOSIN 0.4 MG CAPSULE PO (08:17)
[2024-03-11] MEDS: ATORVASTATIN 20 MG TABLET 80 MG PO (08:18)
[2024-03-11] MEDS: LORATADINE 10 MG TABLET PO (08:18)
[2024-03-11] MEDS: HEPARIN 5,000 UNIT/ML VIAL 5000 UNIT SUBCUT ×2 (08:18→20:40)
[2024-03-11] MEDS: ACETAMINOPHEN 325 MG TABLET 650 MG PO ×2 (08:19→22:43)
[2024-03-11] MEDS: DAROLUTAMIDE 300 MG 600 EACH PO ×2 (09:47→20:42)
[2024-03-11] MEDS: cefTRIAXone 2,000 MG in SODIUM CHLORIDE 0.9% 100 ML 200 MG IV (20:41)
[2024-03-11] MEDS: AZITHROMYCIN 500 MG in DEXTROSE 5% IN WATER 250 ML 250 MG IV (22:43)
--- NOTE | 2024-03-11 23:51 | RT ---
placed on Home CPAP w/ L hosp mask. Patient did not bring his own mask with home unit. 3L O2 bled into circuit, Spo2 93%. RN aware
[2024-03-12] VITALS: BP 118/59; PULSE 87; RESP 18; TEMP 36.1; O2SAT 93
--- NOTE | 2024-03-12 07:27 | P.PN_ITS ---
Subjective Subjective Interval history: Summary: Patient was admitted with acute on chronic diastolic heart failure with known aortic stenosis. He would medication noncompliance and did not take diuretics for about a week. Subjective: He was improving, breathing is better. He still has quite a bit of edema. He was not confused. Exam Vital Signs (past 8 hours): - 03/11/24 23:50 03/12/24 00:00 Temperature 97.0 F L Pulse Rate 87 Respiratory Rate 18 Blood Pressure 118/59 L Pulse Oximetry 93 93 Oxygen Delivery Method Nasal Cannula Oxygen Flow Rate 3 2 Fraction of Inspired Oxygen 32 Fraction of Inspired Oxygen 32 SaO2/FiO2 Ratio 290 Oxygen Delivery Method Nasal Cannula Oxygen Flow Rate 2 Narrative Exam Narrative: NAD, alert and oriented. Fluent speech. Lungs are clear, normal rate and effort. Heart is regular, systolic murmur and no gallop or rub. Abdomen is soft, non distended. Extremities are with gross edema Objective Labs 03/09/24 22:04 03/12/24 08:05 [facility] Medical History Prostate cancer HLD (hyperlipidemia) KORTNEY and COPD overlap syndrome KORTNEY (obstructive sleep apnea) Asthma Hypertension Social History household members: spouse Smoking Status: Former smoker alcohol intake: former Assessment & Plan Assessment & Plan narrative: 1. Acute hypoxic respiratory failure, present on admission and improved. 2. Acute pulmonary edema, present on admission and improving. 3. Acute on chronic diastolic heart failure, present on admission and improving. 4. Chronic abnormal EKG with a right bundle branch block, present on admission and stable. 5. COPD (no exacerbation), present on admission and active. 6. Hypertension, present on admission and active. 7. Prostate cancer, present on admission and stable. 8. Severely elevated pulmonary pressures consistent with pulmonary hypertension versus pulmonary embolism, present on admission and active. The patient can not state if he was had an echo before. He does have a history of probable untreated sleep apnea. 9. Moderate aortic stenosis, present on admission and active. Plan: -we continue diuresis. Mental status improvement. -we will also monitor for arrhythmia on telemetry. Electrolytes remained stable. -He does have chronic compensatory metabolic alkalosis, his baseline pCO2 is around 80. -ABG to assess CO2 if he was mental status worsens. FIDE: 12/21-. Anticipate a 2 midnight stay, inpatient status as supported. Full resuscitation His is his proxy decision maker. Time-Based Coding :: [TOTAL MINUTES] spent with patient and on the chart (including review of chart, obtaining history, exam, reviewing outside data, placing orders, documenting exam and treatment plan, and counseling patient) on [DATE].
[2024-03-12] MEDS: FUROSEMIDE 40 MG/4 ML VIAL IV ×2 (07:29→18:18)
[2024-03-12 08:00] VITALS: BP 128/65; PULSE 102; RESP 18; TEMP 36.3; O2SAT 95
[2024-03-12 08:15] VITALS: O2SAT 95
[2024-03-12 08:36] LABS: BUN Creatinine Ratio 27.7 (6-22); Blood Urea Nitrogen 18 mg/dL (9-20); Calcium 8.8 mg/dL (8.4-10.2); Chloride 84 mmol/L (98-107); Estimated Glomerular Filt Rate > 60 mL/min (>60); Glucose 122 mg/dL (80-110); Potassium 4.4 mmol/L (3.4-5.1); Sodium 138 mmol/L (137-145)
[2024-03-12 08:43] LABS: HEMOLYSIS 44 (0-50)
[2024-03-12 08:47] LABS: Carbon Dioxide 45 mmol/L (22-32)
[2024-03-12] MEDS: ATORVASTATIN 20 MG TABLET 80 MG PO (10:06)
[2024-03-12] MEDS: DAROLUTAMIDE 300 MG 600 EACH PO ×2 (10:07→21:17)
[2024-03-12] MEDS: TAMSULOSIN 0.4 MG CAPSULE PO (10:07)
[2024-03-12] MEDS: SPIRONOLACTONE 25 MG TABLET PO (10:08)
[2024-03-12] MEDS: HEPARIN 5,000 UNIT/ML VIAL 5000 UNIT SUBCUT ×2 (10:08→21:17)
[2024-03-12 12:00] VITALS: BP 117/65; PULSE 102; RESP 16; TEMP 36.6; O2SAT 95
--- NOTE | 2024-03-12 15:17 | CM.DPNOTE ---
DCP Continued: Reviewed EMR and team rounds for pt?s medical status. Per hospitalist, goal is for pt to wean O2 until discharge as they are currently resting at 80% saturation. No discharge needs identified at this time. Plan: Anticipating discharge 03/13 vs 03/14 or when medically stable. CM Team will continue to follow for coordination of discharge plans. OSMEL Brennan
[2024-03-12 16:00] VITALS: BP 132/68; PULSE 112; RESP 20; TEMP 36.4; O2SAT 94
[2024-03-12 20:00] VITALS: BP 121/65; PULSE 84; RESP 18; TEMP 35.9; O2SAT 94
[2024-03-12] MEDS: cefTRIAXone 2,000 MG in SODIUM CHLORIDE 0.9% 100 ML 200 MG IV (21:16)
[2024-03-12] MEDS: ACETAMINOPHEN 325 MG TABLET 650 MG PO (21:18)
[2024-03-13 04:00] VITALS: BP 121/61; PULSE 86; RESP 18; TEMP 36.4; O2SAT 91
[2024-03-13] MEDS: FUROSEMIDE 40 MG/4 ML VIAL IV ×2 (07:00→19:08)
[2024-03-13 08:43] LABS: Add Manual Diff / Slide Review NO; Basophils Absolute Auto 100 /uL (0-100); Basophils Percent Auto 1.2 % (0-2); Eosinophils Absolute Auto 200 /uL (0-450); Eosinophils Percent Auto 2.8 % (2-4); Hematocrit 45.5 % (41-53); Hemoglobin 14.3 g/dL (13.5-17.5); Lymphocytes Absolute Auto 900 /uL (1100-4500); Lymphocytes Percent Auto 12.8 % (25-40); Mean Corpuscular HGB Conc 31.4 % (30-36); Mean Corpuscular Hemoglobin 29.2 PG (26-34); Mean Corpuscular Volume 92.9 fL (80-100); Monocytes Absolute Auto 700 /uL (0-900); Neutrophils Absolute Auto 5400 /uL (1500-7000); Neutrophils Percent Auto 73.2 % (50-75); Platelet Count 222 X10^3/uL (150-400); Red Blood Cell Count 4.89 X10^6/uL (4.5-5.9); Red Cell Distribution Width 14.2 % (11.6-14.8); White Blood Cell Count 7.3 X10^3/uL (4.5-11.0)
[2024-03-13 09:20] LABS: Blood Urea Nitrogen 16 mg/dL (9-20); Calcium 8.7 mg/dL (8.4-10.2); Chloride 84 mmol/L (98-107); Estimated Glomerular Filt Rate > 60 mL/min (>60); Glucose 127 mg/dL (80-110); HEMOLYSIS < 15 (0-50); Potassium 3.6 mmol/L (3.4-5.1); Sodium 138 mmol/L (137-145)
[2024-03-13 09:37] LABS: Carbon Dioxide 46 mmol/L (22-32)
[2024-03-13] MEDS: HEPARIN 5,000 UNIT/ML VIAL 5000 UNIT SUBCUT ×2 (09:52→20:52)
[2024-03-13] MEDS: ATORVASTATIN 20 MG TABLET 80 MG PO (09:52)
[2024-03-13] MEDS: DAROLUTAMIDE 300 MG 600 EACH PO ×2 (09:52→20:53)
[2024-03-13] MEDS: TAMSULOSIN 0.4 MG CAPSULE PO (09:53)
[2024-03-13] MEDS: ACETAMINOPHEN 325 MG TABLET 650 MG PO ×3 (09:53→20:53)
[2024-03-13] MEDS: SPIRONOLACTONE 25 MG TABLET PO (09:53)
[2024-03-13 14:00] VITALS: BP 111/54; PULSE 89; RESP 18; TEMP 36.6; O2SAT 98
[2024-03-13 18:00] VITALS: BP 122/60; PULSE 92; RESP 18; TEMP 35.7; O2SAT 92
--- NOTE | 2024-03-13 18:11 | P.PN_ITS ---
Subjective Subjective Interval history: 78-year-old male with chronic diastolic heart failure and known moderate aortic stenosis, severe pulmonary hypertension, who was admitted with acute on chronic diastolic CHF. Patient reports he feels about 50% better than when he came to the hospital. He still has difficulty with some shortness of breath and expectorating. He states his symptoms began after he had his last dose of Lupron. He states he does have a conductor/brakeman that he follows through the [facility]. He is uncertain if he takes medications for his pulmonary hypertension. Exam Vital Signs (past 8 hours): - 03/13/24 11:01 03/13/24 14:00 Temperature 97.8 F Pulse Rate 89 Respiratory Rate 18 Blood Pressure 111/54 L Pulse Oximetry 98 Oxygen Delivery Method Nasal Cannula Oxygen Flow Rate 2.5 Fraction of Inspired Oxygen 32 SaO2/FiO2 Ratio 290 Oxygen Delivery Method Nasal Cannula Oxygen Flow Rate 2.5 Narrative Exam Narrative: GEN: Elderly male, Alert and oriented x 3, NAD HEENT:NC, Face symmetric CHEST: Respiratory excursions symmetric, coarse but CTAB CV: RRR, no M/R/G ABD: Soft, obese, NT/ND, BT present in all 4 quadrants, body habitus limits exam EXTR: warm, well perfused, no C/C/E SKIN: warm and dry, no rash NEURO: Alert and oriented x 3, nonfocal Objective Labs 03/13/24 08:32 03/13/24 08:32 Labs: Laboratory Results - last 24 hr 03/13/24 08:32 WBC 7.3 RBC 4.89 Hgb 14.3 Hct 45.5 MCV 92.9 MCH 29.2 MCHC 31.4 RDW 14.2 Plt Count 222 Neut % (Auto) 73.2 Lymph % (Auto) 12.8 L [place] % (Auto) 10.0 Eos % (Auto) 2.8 Baso % (Auto) 1.2 Neut # (Auto) 5400 Lymph # (Auto) 900 L [place] # (Auto) 700 Eos # (Auto) 200 Baso # (Auto) 100 Sodium 138 Potassium 3.6 Chloride 84 L Carbon Dioxide 46 H* BUN 16 Creatinine 0.64 L Estimated GFR > 60 BUN/Creatinine Ratio 25.0 H Glucose 127 H Calcium 8.7 PFSH Medical History Prostate cancer HLD (hyperlipidemia) KORTNEY and COPD overlap syndrome KORTNEY (obstructive sleep apnea) Asthma Hypertension Social History household members: spouse Smoking Status: Former smoker alcohol intake: former Assessment & Plan Assessment & Plan narrative: 1. Acute on chronic diastolic congestive heart failure Patient continues on furosemide 40 mg IV q.12 hours as well as oral spironolactone. He is slowly improving. 2. Severe pulmonary hypertension He requires follow-up with regard to his pulmonary hypertension and should see his conductor/brakeman at the [place] for this. This is likely contributing to his difficult symptom management. 3. Moderate aortic stenosis Valve area is 1.1 cm. Follows through the [facility]. 4. Acute hypoxic respiratory failure O2 need is gradually improving down from 4 liters/minute to now 2.5 liters/minute. He was down to 2 L yesterday. We will continue to monitor. 5. COPD No evidence of exacerbation. 6. Hypertension Blood pressures are presently well controlled. 7. Prostate cancer Continues Lupron maintenance therapy q.3 months and daily oral Nubeqa. 8. Class 2 obesity BMI is 39.7. He would benefit from weight reduction Code status Full Prophylaxis On heparin Disposition Likely another 48 hours before he will be ready for discharge Time-Based Coding :: [TOTAL MINUTES] spent with patient and on the chart (including review of chart, obtaining history, exam, reviewing outside data, placing orders, documenting exam and treatment plan, and counseling patient) on [DATE].
[2024-03-13] MEDS: cefTRIAXone 2,000 MG in SODIUM CHLORIDE 0.9% 100 ML 200 MG IV (20:55)
[2024-03-13 22:00] VITALS: BP 122/75; PULSE 95; RESP 20; TEMP 36.2; O2SAT 91
[2024-03-14 02:00] VITALS: BP 132/72; PULSE 86; RESP 18; TEMP 36.2; O2SAT 92
[2024-03-14] MEDS: ACETAMINOPHEN 325 MG TABLET 650 MG PO ×3 (02:34→20:14)
[2024-03-14] MEDS: FUROSEMIDE 40 MG/4 ML VIAL IV (07:00)
[2024-03-14] MEDS: acetaZOLAMIDE 250 MG TABLET PO ×2 (08:27→20:14)
[2024-03-14] MEDS: HEPARIN 5,000 UNIT/ML VIAL 5000 UNIT SUBCUT ×2 (08:27→20:13)
[2024-03-14] MEDS: SPIRONOLACTONE 25 MG TABLET PO (08:27)
[2024-03-14] MEDS: ATORVASTATIN 20 MG TABLET 80 MG PO (08:27)
[2024-03-14] MEDS: TAMSULOSIN 0.4 MG CAPSULE PO (08:28)
[2024-03-14] MEDS: DAROLUTAMIDE 300 MG 600 EACH PO ×2 (08:29→20:14)
[2024-03-14 08:30] VITALS: O2SAT 93
[2024-03-14 10:00] VITALS: BP 113/60; PULSE 87; RESP 20; TEMP 36.4; O2SAT 90
--- NOTE | 2024-03-14 14:12 | CM.DPNOTE ---
DCP note INSPECTING SUPERVISOR reviewed EMR. per chart review/hospitalist in morning rounds, anticipate another day or so before stable to dc home. Currently on 2ltrs O2. (no home O2 at baseline). No new CM/DCP needs identified at this time. Plan: Anticipating discharge 03/15 vs 03/16 or when medically stable. CM Team will continue to follow for coordination of discharge plans as needed. JESSICA Turner
--- NOTE | 2024-03-14 16:31 | PM.PN.1 ---
Subjective Subjective Interval history: 78-year-old male with chronic diastolic heart failure and known moderate aortic stenosis, severe pulmonary hypertension, who was admitted with acute on chronic diastolic CHF. Pt notes he is having less congestion and is clearing his mucus more easily. He notes he continues to slowly improving. Continues to have frustrations w/the hospital staff around various complaints. He would like lotion on his legs. Exam Vital Signs (past 8 hours): - 03/14/24 10:00 Temperature 97.6 F Pulse Rate 87 Respiratory Rate 20 Blood Pressure 113/60 Pulse Oximetry 90 L Oxygen Flow Rate 2 Fraction of Inspired Oxygen 32 SaO2/FiO2 Ratio 290 Oxygen Delivery Method Nasal Cannula Oxygen Flow Rate 2 Narrative Exam Narrative: GEN: Elderly male, Alert and oriented x 3, NAD HEENT:NC, Face symmetric CHEST: Respiratory excursions symmetric, coarse but CTAB CV: RRR, no M/R/G ABD: Soft, obese, NT/ND, BT present in all 4 quadrants, body habitus limits exam EXTR: warm, well perfused, no C/C/E, wrinkles from decreased edema noted in both legs w/dry skin SKIN: warm and dry, no rash NEURO: Alert and oriented x 3, nonfocal Objective Labs 03/13/24 08:32 03/13/24 08:32 [facility] Medical History Prostate cancer HLD (hyperlipidemia) KORTNEY and COPD overlap syndrome KORTNEY (obstructive sleep apnea) Asthma Hypertension Social History household members: spouse Smoking Status: Former smoker alcohol intake: former Assessment & Plan Assessment & Plan narrative: 1. Acute on chronic diastolic congestive heart failure Patient continues on furosemide 40 mg IV q.12 hours as well as oral spironolactone. Will decrease to IV once daily. Appears close to euvolemic. 2. Severe pulmonary hypertension He requires follow-up with regard to his pulmonary hypertension and should see his physician assistant certified at the [place] for this. This is likely contributing to his difficult symptom management. 3. Moderate aortic stenosis Valve area is 1.1 cm. Follows through the [facility] [place]. 4. Acute hypoxic respiratory failure O2 need is gradually improving down from 4 liters/minute earlier this hospital stay to 2.5 liters/minutes yesterday to now 2 liters/minute. We will continue to monitor. 5. COPD No evidence of exacerbation. 6. Hypertension Blood pressures are presently well controlled. 7. Prostate cancer Continues Lupron maintenance therapy q.3 months and daily oral Nubeqa. 8. Class 2 obesity BMI is 39.7. He would benefit from weight reduction Code status Full Prophylaxis On heparin Disposition Likely another 48 hours before he will be ready for discharge. Time-Based Coding :: [TOTAL MINUTES] spent with patient and on the chart (including review of chart, obtaining history, exam, reviewing outside data, placing orders, documenting exam and treatment plan, and counseling patient) on [DATE].
[2024-03-14 19:00] VITALS: BP 119/73; PULSE 92; RESP 20; TEMP 36.5; O2SAT 93
[2024-03-14] MEDS: cefTRIAXone 2,000 MG in SODIUM CHLORIDE 0.9% 100 ML 200 MG IV (20:13)
[2024-03-14] MEDS: SODIUM CHLORIDE 0.9% FLUSH 10 ML IV (20:13)
[2024-03-14 23:30] VITALS: O2SAT 94
[2024-03-15 06:48] LABS: Add Manual Diff / Slide Review NO; Basophils Absolute Auto 100 /uL (0-100); Basophils Percent Auto 1.2 % (0-2); Eosinophils Absolute Auto 200 /uL (0-450); Hematocrit 44.9 % (41-53); Hemoglobin 14.3 g/dL (13.5-17.5); Lymphocytes Absolute Auto 1100 /uL (1100-4500); Mean Corpuscular HGB Conc 31.9 % (30-36); Mean Corpuscular Hemoglobin 29.7 PG (26-34); Mean Corpuscular Volume 93.2 fL (80-100); Monocytes Absolute Auto 700 /uL (0-900); Monocytes Percent Auto 9.6 % (3-14); Neutrophils Absolute Auto 4900 /uL (1500-7000); Neutrophils Percent Auto 70.2 % (50-75); Platelet Count 182 X10^3/uL (150-400); Red Blood Cell Count 4.82 X10^6/uL (4.5-5.9); Red Cell Distribution Width 14.5 % (11.6-14.8); White Blood Cell Count 6.9 X10^3/uL (4.5-11.0)
[2024-03-15 07:00] VITALS: BP 130/76; PULSE 84; RESP 20; TEMP 35.7; O2SAT 93
[2024-03-15 07:05] LABS: BUN Creatinine Ratio 22.7 (6-22); Blood Urea Nitrogen 17 mg/dL (9-20); Calcium 9.3 mg/dL (8.4-10.2); Chloride 90 mmol/L (98-107); Estimated Glomerular Filt Rate > 60 mL/min (>60); Glucose 133 mg/dL (80-110); HEMOLYSIS 23 (0-50); Potassium 3.9 mmol/L (3.4-5.1); Sodium 134 mmol/L (137-145)
[2024-03-15 07:12] LABS: Carbon Dioxide 39 mmol/L (22-32)
--- NOTE | 2024-03-15 08:10 | PM.PN.1 ---
Subjective Subjective Interval history: Summary: 78-year-old male with chronic diastolic heart failure and known moderate aortic stenosis, severe pulmonary hypertension, who was admitted with acute on chronic diastolic CHF. S: Exam Vital Signs (past 8 hours): Fraction of Inspired Oxygen 28 SaO2/FiO2 Ratio 335 Oxygen Delivery Method Nasal Cannula Oxygen Flow Rate 2 Narrative Exam Narrative: NAD, alert and oriented. Fluent speech. More engaging. Lungs are clear, normal rate and effort. Heart is regular, no murmur gallop or rub. Abdomen is soft, non distended. Extremities are 2+ edema. Decreased from admission. Objective Labs 03/15/24 06:35 03/15/24 06:35 Labs: Laboratory Results - last 24 hr 03/15/24 06:35 WBC 6.9 RBC 4.82 Hgb 14.3 Hct 44.9 MCV 93.2 MCH 29.7 MCHC 31.9 RDW 14.5 Plt Count 182 Neut % (Auto) 70.2 Lymph % (Auto) 16.0 L [place] % (Auto) 9.6 Eos % (Auto) 3.0 Baso % (Auto) 1.2 Neut # (Auto) 4900 Lymph # (Auto) 1100 [place] # (Auto) 700 Eos # (Auto) 200 Baso # (Auto) 100 Sodium 134 L Potassium 3.9 Chloride 90 L Carbon Dioxide 39 H BUN 17 Creatinine 0.75 Estimated GFR > 60 BUN/Creatinine Ratio 22.7 H Glucose 133 H Calcium 9.3 PFSH Medical History Prostate cancer HLD (hyperlipidemia) KORTNEY and COPD overlap syndrome KORTNEY (obstructive sleep apnea) Asthma Hypertension Social History household members: spouse Smoking Status: Former smoker alcohol intake: former Assessment & Plan Assessment & Plan narrative: 1. Acute on chronic diastolic congestive heart failure, improving. Patient continues on furosemide 40 mg IV q.12 hours as well as oral spironolactone. Will decrease to IV once daily. Appears close to euvolemic. 2. Severe pulmonary hypertension, active. He requires follow-up with regard to his pulmonary hypertension and should see his flake or shred roll operator at the [place] for this. This is likely contributing to his difficult symptom management. 3. Moderate aortic stenosis, active. Valve area is 1.1 cm. Follows through the [facility]. 4. Acute hypoxic respiratory failure O2 need is gradually improving down from 4 liters/minute earlier this hospital stay to 2.5 liters/minutes yesterday to now 2 liters/minute. We will continue to monitor. 5. COPD, active. No evidence of exacerbation. 6. Hypertension, active. Blood pressures are presently well controlled. 7. Prostate cancer, active. Continues Lupron maintenance therapy q.3 months and daily oral Nubeqa. 8. Class 2 obesity, active. BMI is 39.7. He would benefit from weight reduction PLAN: -continue diuresis. -out of bed -discharge planning. Code status Full Prophylaxis On heparin Time-Based Coding :: [TOTAL MINUTES] spent with patient and on the chart (including review of chart, obtaining history, exam, reviewing outside data, placing orders, documenting exam and treatment plan, and counseling patient) on [DATE].
[2024-03-15] MEDS: DAROLUTAMIDE 300 MG 600 EACH PO ×2 (08:38→20:15)
[2024-03-15] MEDS: HEPARIN 5,000 UNIT/ML VIAL 5000 UNIT SUBCUT ×2 (08:38→20:16)
[2024-03-15] MEDS: FUROSEMIDE 40 MG/4 ML VIAL IV (08:38)
[2024-03-15] MEDS: ATORVASTATIN 20 MG TABLET 80 MG PO (08:38)
[2024-03-15] MEDS: acetaZOLAMIDE 250 MG TABLET PO ×2 (08:38→20:15)
[2024-03-15] MEDS: ACETAMINOPHEN 325 MG TABLET 650 MG PO (08:38)
[2024-03-15] MEDS: SPIRONOLACTONE 25 MG TABLET PO (08:39)
[2024-03-15] MEDS: TAMSULOSIN 0.4 MG CAPSULE PO (08:39)
[2024-03-15] MEDS: SODIUM CHLORIDE 0.9% FLUSH 10 ML IV ×2 (08:39→20:16)
[2024-03-15 19:00] VITALS: BP 148/86; PULSE 83; RESP 20; TEMP 36.4; O2SAT 92
[2024-03-15] MEDS: cefTRIAXone 2,000 MG in SODIUM CHLORIDE 0.9% 100 ML 200 MG IV (20:15)
[2024-03-15 21:42] VITALS: O2SAT 95
--- NOTE | 2024-03-16 04:52 | PC.NURSE ---
Patient intermittently wears oxygen by NC. Will saturate at 91% on RA with effort to maintain, will desat down to 89% when his concentration is not on breathing. Encouraged patient to wear O2 at 2L when sleeping given that he is at times unwilling to wear while awake. During patient checks by me, found patient to sometimes wear nasal cannula and other times will not have it on. Patient currently resting in bed on his side with unlabored breathing and wearing 2L by NC. Patient voices no concern with his saturations when not wearing oxygen.
[2024-03-16 07:00] VITALS: BP 136/68; PULSE 101; RESP 22; O2SAT 90
[2024-03-16 07:39] VITALS: PULSE 89; O2SAT 98
[2024-03-16 08:30] VITALS: O2SAT 90
[2024-03-16] MEDS: FUROSEMIDE 40 MG/4 ML VIAL IV (08:32)
[2024-03-16] MEDS: TAMSULOSIN 0.4 MG CAPSULE PO (08:32)
[2024-03-16] MEDS: HEPARIN 5,000 UNIT/ML VIAL 5000 UNIT SUBCUT ×2 (08:32→20:24)
[2024-03-16] MEDS: DAROLUTAMIDE 300 MG 600 EACH PO ×2 (08:32→20:24)
[2024-03-16] MEDS: SPIRONOLACTONE 25 MG TABLET PO (08:32)
[2024-03-16] MEDS: ATORVASTATIN 20 MG TABLET 80 MG PO (08:32)
[2024-03-16] MEDS: acetaZOLAMIDE 250 MG TABLET PO ×2 (08:32→20:23)
[2024-03-16] MEDS: SODIUM CHLORIDE 0.9% FLUSH 10 ML IV ×2 (08:33→20:24)
--- NOTE | 2024-03-16 09:32 | PM.PN.1 ---
Subjective Subjective Interval history: S: Doing a little better. Still weak, no CP or nausea. Exam Vital Signs (past 8 hours): - 03/16/24 07:00 03/16/24 07:39 Pulse Rate 101 H 89 Respiratory Rate 22 Blood Pressure 136/68 Pulse Oximetry 90 L 98 Oxygen Delivery Method Nasal Cannula Humidification Oxygen Flow Rate 2 Fraction of Inspired Oxygen 28 Fraction of Inspired Oxygen 28 SaO2/FiO2 Ratio 350 Oxygen Delivery Method Nasal Cannula,Humidification Oxygen Flow Rate 2 Narrative Exam Narrative: NAD, alert and oriented. Fluent speech. Lungs are clear, normal rate and effort. Heart is regular, systoloc murmur, no gallop or rub. Abdomen is soft, non distended. Extremities are with improved edema. Objective Labs 03/15/24 06:35 03/15/24 06:35 [facility] Medical History Prostate cancer HLD (hyperlipidemia) KORTNEY and COPD overlap syndrome KORTNEY (obstructive sleep apnea) Asthma Hypertension Social History household members: spouse Smoking Status: Former smoker alcohol intake: former Assessment & Plan Assessment & Plan narrative: 1. Acute on chronic diastolic congestive heart failure, improving. Patient continues on furosemide 40 mg IV q.12 hours. 2. Severe pulmonary hypertension, active. He requires follow-up with regard to his pulmonary hypertension and should see his bilingual social worker at the [place] for this. This is likely contributing to his difficult symptom management. 3. Moderate aortic stenosis, active. Valve area is 1.1 cm. Follows through the [facility] [place]. 4. Acute hypoxic respiratory failure, resolved. O2 need is gradually improving down from 4 liters/minute earlier this hospital stay to 2.5 liters/minutes yesterday to now 2 liters/minute. We will continue to monitor. 5. COPD, stable. No evidence of exacerbation. 6. Hypertension, stable. Blood pressures are presently well controlled. 7. Prostate cancer, active. Continues Lupron maintenance therapy q.3 months and daily oral Nubeqa. 8. Class 2 obesity, active. BMI is 39.7. He would benefit from weight reduction PLAN: -continue diuresis. -out of bed -discharge planning. FIDE: 1-2 days. Code status Program/Music Director-Based Coding :: [TOTAL MINUTES] spent with patient and on the chart (including review of chart, obtaining history, exam, reviewing outside data, placing orders, documenting exam and treatment plan, and counseling patient) on [DATE].
--- NOTE | 2024-03-16 11:38 | CM.DPNOTE ---
DCP Note DESIGN ASSISTANT reviewed EMR. per provider in morning rounds, anticipate dc tomorrow, 03/17. Another day to get pt to baseline room air. no new CM needs identified at this time. Plan: Anticipating discharge 03/17 or when medically stable. CM Team will continue to follow for coordination of discharge plans as needed. follow if need for ferry pass if dc'ing back to home on Friday. JESSICA Turner
--- NOTE | 2024-03-16 11:39 | DIET.CONS ---
Dietary Consultation Note Admission Date: 03/10/2024 03:38 Assessment: 78 y M admitted with for CHF and acute resp failure. RD screened for LOS. Pt with >75% of avg recorded PO intakes. DFM reviewed for meal composition. No recent weight loss. Ht: 180.34 cm Wt: 129.274 kg BMI: 39.7 UBW: 127.931 kg on 12/15/23 Last BM: 03/13/24 (03/13/24 20:00) MNA: 12 Aquilino Score: 23 Diet: 03/10/24 Breakfast Low Sodium Diet (2gm) Diet Modifications: Nutrition Percent Meal Consumed 50% 03/15/24 18:00 Percent Meal Consumed 100% 03/14/24 12:00 Labs: RBC 4.82 X10^6/uL (4.5-5.9) 03/15/24 06:35 Hgb 14.3 g/dL (13.5-17.5) 03/15/24 06:35 Hct 44.9 % (41-53) 03/15/24 06:35 Creatinine 0.75 mg/dL (0.66-1.25) 03/15/24 06:35 NT-Pro-B Natriuret Pep 2130 pg/mL (<450) H 03/09/24 22:04 No nutrition intervention needed at this time. Electronically Signed by: Shagufta Tony 03/16/24 11:39 Clinical Dietitian [address] [id number]
--- NOTE | 2024-03-16 16:00 | PC.NURSE ---
Day Shift Note Patient declines oxygen at this time, educated on need for oxygen but pt continues to decline. SpO2 89-90% RA, denies shortness of breath. Independent in room.
[2024-03-16 20:00] VITALS: BP 134/57; PULSE 90; RESP 18; TEMP 36.1; O2SAT 91
[2024-03-16] MEDS: cefTRIAXone 2,000 MG in SODIUM CHLORIDE 0.9% 100 ML 200 MG IV (20:25)
[2024-03-17 08:00] VITALS: BP 132/70; PULSE 87; RESP 17; TEMP 35.9; O2SAT 96
[2024-03-17] MEDS: FUROSEMIDE 40 MG/4 ML VIAL IV (08:33)
[2024-03-17] MEDS: HEPARIN 5,000 UNIT/ML VIAL 5000 UNIT SUBCUT (08:33)
[2024-03-17] MEDS: SPIRONOLACTONE 25 MG TABLET PO (08:34)
[2024-03-17] MEDS: TAMSULOSIN 0.4 MG CAPSULE PO (08:34)
[2024-03-17] MEDS: ATORVASTATIN 20 MG TABLET 80 MG PO (08:35)
[2024-03-17] MEDS: acetaZOLAMIDE 250 MG TABLET PO (08:35)
[2024-03-17] MEDS: SODIUM CHLORIDE 0.9% FLUSH 10 ML IV (08:35)
[2024-03-17] MEDS: DAROLUTAMIDE 300 MG 600 EACH PO (08:35)
--- NOTE | 2024-03-17 10:29 | P.DS_ITS ---
History of Present Illness History of Present Illness Date Patient Seen: 03/17/24 Time Patient Seen: 08:30 Date of Onset of Symptoms: 03/10/24 Chief complaint: difficulty breathing Narrative: Chief complaint: difficulty breathing Narrative: Summary: The patient was a 78-year-old male with history of COPD, CHF, chronic leg edema, and prostate cancer on maintenance Lupron. He presented with 2-3 days of worsening shortness a breath and productive cough. 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 It was have a history of chronic diastolic heart failure, medication noncompliance, hypertension, COPD, and chronic leg edema. He presented with progressive shortness a breath. He also notes that he forgot his medications on his last work run in his not been taking these for 6 days. He does work 7 days in a row. Denies any chest pain. Discharge Providers Provider Date of admission: 03/10/24 03:38 Discharge Date: 03/17/24 Primary care physician: Stevan Howard MD Discharge provider: Kendell Briceno MD Summary Hospital Course Discharge Diagnosis: 1. Acute on chronic diastolic congestive heart failure due to medication non- adherance 2. Severe pulmonary hypertension. 3. Moderate aortic stenosis. 4. Acute hypoxic respiratory failure, resolved. 5. COPD, stable. 6. Hypertension, stable. 7. Prostate cancer, metastatic. 8. Class 2 obesity. Hospital Course: The patient was admitted and restarted on his usual diuretics. He experienced a significant metabolic alkalosis treated with oral acetazolamide. He improved significantly during his hospitalization, and was able to wean off oxygen and ambulate without impairment, and was interested in discharge home. No other issues arose. Medication adherence was strongly encouraged, along with close outpatient follow-up through his primary care team. Status at Discharge Cognitive/behavioral status at discharge: oriented Functional status at discharge: independent ambulation Overall status at discharge: patient is back to baseline Time Spent with Patient Time spent: Less than 30 minutes Exam Vital Signs (past 8 hours): - 03/17/24 08:00 03/17/24 08:00 Temperature 96.7 F L Pulse Rate 87 Respiratory Rate 17 Blood Pressure 132/70 Pulse Oximetry 96 Oxygen Delivery Method Room Air Oxygen Flow Rate 0 Fraction of Inspired Oxygen 28 SaO2/FiO2 Ratio 350 Oxygen Delivery Method Room Air Oxygen Flow Rate 0 Narrative Exam Narrative: NAD, alert and oriented. Fluent speech. Lungs are clear, normal rate and effort. Heart is regular, systoloc murmur, no gallop or rub. Abdomen is soft, non distended. Extremities are with mild edema. Objective Imaging Chest x-ray 03/09/2024:: Radiologist's impression: Hazy bilateral opacities, left greater than right. Findings are concerning for atypical pneumonia. Superimposed bronchitis is also present. Labs 03/15/24 06:35 03/15/24 06:35 [facility] Medical History Asthma HLD (hyperlipidemia) Hypertension KORTNEY (obstructive sleep apnea) KORTNEY and COPD overlap syndrome Prostate cancer Social History household members: spouse Smoking Status: Former smoker alcohol intake: former Discharge Plan Discharge Plan Patient Disposition: Home Provider Discharge Comment: [place] with ESTEE Villegas at the [place] in 1 week Discharge orders & Medications Prescriptions: Continued lisinopril 20 MG tablet 10 mg PO DAILY Qty: 0 albuterol sulfate [Ventolin HFA] 90 MCG/PUFF HFA aerosol inhaler 2 puff INH Q4HP PRN (Reason: Shortness Of Breath) atorvastatin 80 mg tablet 80 mg PO DAILY Nubeqa 300 mg tablet 600 mg PO BID torsemide 20 mg tablet 20 mg PO BID Qty: 60 0RF torsemide 10 mg tablet 10 mg PO DAILY tamsulosin 0.4 mg Capsule 0.4 mg PO DAILY spironolactone 25 mg Tablet 25 mg PO DAILY lisinopril 10 mg tablet 10 mg PO DAILY cetirizine 10 mg Tablet 10 mg PO DAILY montelukast 10 mg tablet 10 mg PO DAILY Follow up/Referrals: Stevan Howard MD [Primary Care Provider] - Visit Report/Discharge Packet Stand Alone Forms: Patient Portal/API, Stroke Signs & Symptoms Discharge Data Primary Care Provider: Stevan Howard Quality MIPS - Admit I confirm the patient?s Advance Care Plan is present, Code status is documented, Surrogate decision maker is in patient?s record [If Yes, STOP here]: Yes MIPS - Meds 'Current medications' to include all prescriptions, qwgy-ozl-sedswte products, herbals, cannabis/cannabidiol products, and vitamin/mineral/dietary (nutritional) supplements. I have utilized all available resources to obtain, update, or review the patient?s current medications. [If Yes, STOP here]: Yes MIPS - DC The patient has a history of heart transplant or Left Ventricular Assist Device (LVAD). If yes, STOP here.: No The patient has current or prior documentation of left ventricular ejection fraction (LVEF) less than or equal to 40%, or moderate or severely depressed left ventricular systolic function.: Yes A. The patient was prescribed or already taking an Angiotensin-Converting Enzyme (MILENA) Inhibitor, or Angiotensin Receptor Derrick (ARB).: No B. The patient was prescribed or already taking a beta-derrick. [If Yes to Both A & B, STOP here]: No Patient not prescribed/taking MILENA or ARB, no reason given.: No Patient not prescribed/taking beta-derrick, no reason given.: No PROFEE Charge Codes Discharge inpatient/observation: 17559
== END 2024-03-17 20:00 | disposition home or self-care (01) | DRG 291 ==
LOC: ED 23:33 → AC 03-10 03:39
PROVIDERS: Family Medicine; Hospitalist; Admitting Provider Hospitalist; Emergency Provider Emergency Medicine; PCP Internal Medicine Endocrinology, Diabetes & Metabolism; Referring Provider Emergency Medicine; Visit Provider Hospitalist
DX: I13.0 Hypertensive heart and chronic kidney disease with heart failure and stage 1 through stage 4 chronic kidney disease, or unspecified chronic kidney disease (principal); I50.33 Acute on chronic diastolic (congestive) heart failure; J96.01 Acute respiratory failure with hypoxia; C79.9 Secondary malignant neoplasm of unspecified site; E87.3 Alkalosis; N18.30 Chronic kidney disease, stage 3 unspecified; E78.2 Mixed hyperlipidemia; C61 Malignant neoplasm of prostate; G47.33 Obstructive sleep apnea (adult) (pediatric); J44.9 Chronic obstructive pulmonary disease, unspecified; I45.10 Unspecified right bundle-branch block; I35.0 Nonrheumatic aortic (valve) stenosis; I27.20 Pulmonary hypertension, unspecified; E66.812 Obesity, class 2; E78.5 Hyperlipidemia, unspecified; Z91.148 Patient's other noncompliance with medication regimen for other reason; Z91.119 Patient's noncompliance with dietary regimen due to unspecified reason; Z87.891 Personal history of nicotine dependence; Z68.39 Body mass index [BMI] 39.0-39.9, adult; Z79.890 Hormone replacement therapy
CPT/HCPCS: 36415; 71045; 80048; 80053; 82550; 83735; 83880; 84484; 85025; 87633; 93005; 94762; 96365; 96366; 96367; 96375; 99284; 99291; J0696; J1644; J1940